=== PATIENT | female | born 1970 | race Caucasian/White ===

== ENCOUNTER 2020-07-27 18:17 | Emergency (ER) | payer MEDICAID, SELFPAY ==
[2020-07-27 18:19] VITALS: BP 162/99; PULSE 100; RESP 16; TEMP 36.6; O2SAT 98; BMI 29.2
[2020-07-27 19:00] LABS: Bacteria 0 SEEN /hpf (None Seen)
[2020-07-27 19:01] LABS: Absolute Lymphocyte Count 2.42 X10^3/uL (0.83-4.51); Absolute Neutrophil Count 8.8 X10^3/uL (2.0-7.7); Basophil% 0.8 % (0-1); Eosinophil# 0.46 X10^3/uL; Eosinophils% 3.7 % (0-5); Hemoglobin 9.2 g/dL (12.0-15.0); Lymphocyte # 2.42 X10^3/ul (4.0); Lymphocyte % 19.3 % (19-41); Mean Corp Hgb Conc 30.7 g/dL (32-36); Mean Corpuscular Hgb 23.7 pg (27.0-32.0); Mean Corpuscular Volume 77.1 fL (81-99); Mean Platelet Vol. 10.5 fl (6.2-12.0); Monocyte# 0.74 X10^3/uL; Monocyte% 5.9 % (0-10); NRBC Flagged by Analyzer 0 % (0-5); Neutrophil # 8.75 X10^3/uL (2.7-7.7); Neutrophil % 69.8 % (47-70); Platelet Count 464 K/mm3 (150-450); RBC Distribution Width CV 16.2 % (11.6-14.6); RBC Distribution Width SD 45.3 fl (35.1-43.9); Red Blood Count 3.89 M/mm3 (4.2-5.4); White Blood Count 12.5 K/mm3 (4.4-11.0)
[2020-07-27 19:01] LABS: Color, Urine Yellow (Yellow); Glucose, Dipstick 100 mg/dl (Normal); Ketone-Dipstick 5 mg/dl (Negative); Leukocyte Esterase-Dipstick 25 /ul (Negative); Nitrite-Dipstick Negative (Negative); Occult Blood-Urine 25 /ul (Negative); Protein-Dipstick 15 mg/dl (Negative); Specific Gravity, Urine 1.025 (1.002-1.030); Urine Bilirubin Dipstick Negative (Negative); Urine Clarity Clear (Clear); Urine Urobilinogen Normal (Normal)
[2020-07-27 19:01] LABS: Bedside Glucose 261 mg/dL (70-110)
[2020-07-27 19:07] LABS: Mucous, Urine 1+ /hpf (<or=2+); Red Blood Cells-Urine 0-5 SEEN /hpf (0-5); Squamous Epithelial Cells - UA 5-10 SEEN /hpf (5-10); White Blood Cells 0-5 SEEN /hpf (0-5)
[2020-07-27 19:13] LABS: Anion Gap 9 (5-15); BUN 12 mg/dL (7-18); BUN/Creat Ratio 13.3 RATIO (10-20); Calcium,Total 8.2 mg/dL (8.5-10.1); Chloride 108 mmol/L (98-107); EST Glomerular Filtration Rate 71 mL/min (>60); Est Glom Filt Rate - Afr Amer 86 mL/min (>60); Estimated Creatinine Clearance 63.24 ml/min; Glucose 276 mg/dL (74-106); Potassium 3.6 mmol/L (3.5-5.1); Sodium Level 139 mmol/L (136-145)
[2020-07-27] MEDS: 0.9% Normal Saline 1,000 ML 50 ML IV (21:01)
[2020-07-27 21:03] VITALS: BP 137/61; PULSE 67; RESP 18; O2SAT 98
--- NOTE | 2020-07-27 21:27 | ED.DCSUM_ITS ---
History of Present Illness Chief Complaint: Hyperglycemia Informant: Patient Onset: Today Context: Gradual Onset Timing: Continuous Narrative: Patient is a 49-year-old female with recent diagnosis of insulin-dependent di abetes mellitus presenting with fatigue and elevated blood sugars. Patient states her diet is very poor and her blood sugars have been running higher lately. She states initially they were 1 20-1 50 but now they have been running into the 200s. Today she checked her blood sugar and it was in the 300s. She took 6 units of insulin and after that started feel lightheaded and like she was walking in water. She is brought to the emergency room for further evaluation. Patient had protocol orders placed and was receiving IV fluids when I evaluate her. She states she is now feeling much better. She has had urinary frequency but denies any dysuria or hematuria. She denies any other systemic symptoms such as cough, chest pain, shortness of breath, nausea, vomiting or GI symptoms. Past Medical History - Allergies and Home Meds Allergies/Adverse Reactions: Allergies No Known Allergies Allergy (Verified 07/27/20 18:17) Past Medical History: - - Diabetes mellitus, insulin-dependent Surgical History: noncontributory Smoking Status: Former smoker Review of Systems General: Reports: Malaise, - - Lightheaded. Denies: Chills, Fever, Sweats Eyes: Denies: Visual changes - bilaterally, Diplopia ENT: Denies: Rhinorrhea, Sore throat Cardiovascular: Denies: Chest pain, Palpitations Respiratory: Denies: Dyspnea, Cough, Dyspnea on exertion Gastrointestinal: Denies: Abdominal pain, Nausea, Vomiting, Diarrhea, Melena, Hematochezia Genitourinary: Reports: Frequency. Denies: Dysuria, Hematuria Musculoskeletal: Denies: Back pain, Extremity Pain Skin: Denies: Rash, Wounds Neurological: Denies: Headache, Weakness, Numbness Physical Exam Vital Signs/Narrative: Vital Signs Temp Pulse Resp BP Pulse Ox 07/27/20 21:03 67 18 137/61 H 98 07/27/20 18:19 97.8 F 100 16 162/99 H 98 Inital Vital Signs reviewed: Yes General: Well nourished, Well developed, No Acute Distress Head: Normocephalic, Atraumatic Eyes: Perrl, EOMI ENT: Moist mucous membranes, No rhinorrhea Neck: Supple, Nontender Cardiovascular: Regular rate, Regular rhythm, No murmurs Respiratory: No distress, CTA bilaterally, Chest nontender Abdomen: Soft, Nontender, Nondistended, Normal bowel sounds Back: Nontender, Normal Inspection Extremities: Nontender, No edema Skin: Normal color, No rash Neurological: Alert, Oriented x3, Cranial nerves II-XII grossly intact, Normal Strength, Normal Sensation Psychological: Normal affect, Normal Mood Diagnostic/Tx/Re-eval Chest X-Ray - ED: 2 View, Read by ED Physician, Read by Radiologist, No Acute Disease Clinical Impression(s) from Imaging Studies Chest X-Ray 07/27/20 21:32 IMPRESSION: Normal. at 2202 Reported and signed by: Harvey Rene MD Electronically Signed: Harvey Rene MD at 22:01 EST Tel , Service support , Laboratory Data 07/27/20 07/27/20 07/27/20 18:45 18:45 18:50 WBC 12.5 H RBC 3.89 L Hgb 9.2 L Hct 30.0 L MCV 77.1 L MCH 23.7 L MCHC 30.7 L RDW Std Deviation 45.3 H RDW Coeff of Jv 16.2 H Plt Count 464 H MPV 10.5 Immature Gran % (Auto) 0.500 Neut % (Auto) 69.8 Lymph % (Auto) 19.3 [place] % (Auto) 5.9 Eos % (Auto) 3.7 Baso % (Auto) 0.8 Absolute Neuts (auto) 8.8 H Absolute Lymphs (auto) 2.42 Nucleated RBC % 0 Sodium 139 Potassium 3.6 Chloride 108 H Carbon Dioxide 22.0 Anion Gap 9 BUN 12 Creatinine 0.90 Estim Creat Clear Calc 63.24 Est GFR (MDRD) Af Amer 86 Est GFR (MDRD) Non-Af 71 BUN/Creatinine Ratio 13.3 Glucose 276 H Calcium 8.2 L Urine Color Yellow Urine Clarity Clear Urine pH 5.0 Ur Specific [place] 1.025 Urine Protein 15 H Urine Glucose (UA) 100 H Urine Ketones 5 H Urine Occult Blood 25 H Urine Nitrite Negative Urine Bilirubin Negative Urine Urobilinogen Normal Ur Leukocyte Esterase 25 H Urine RBC 0-5 SEEN Urine WBC 0-5 SEEN Ur Squamous Epith Cells 5-10 SEEN Urine Bacteria 0 SEEN Urine Mucus 1+ POC Glucose 07/27/20 18:53 WBC RBC Hgb Hct MCV MCH MCHC RDW Std Deviation RDW Coeff of Jv Plt Count MPV Immature Gran % (Auto) Neut % (Auto) Lymph % (Auto) [place] % (Auto) Eos % (Auto) Baso % (Auto) Absolute Neuts (auto) Absolute Lymphs (auto) Nucleated RBC % Sodium Potassium Chloride Carbon Dioxide Anion Gap BUN Creatinine Estim Creat Clear Calc Est GFR (MDRD) Af Amer Est GFR (MDRD) Non-Af BUN/Creatinine Ratio Glucose Calcium Urine Color Urine Clarity Urine pH Ur Specific [place] Urine Protein Urine Glucose (UA) Urine Ketones Urine Occult Blood Urine Nitrite Urine Bilirubin Urine Urobilinogen Ur Leukocyte Esterase Urine RBC Urine WBC Ur Squamous Epith Cells Urine Bacteria Urine Mucus POC Glucose 261 H - Medical Decision Making Patient evaluated for concern of elevated blood glucose and feeling unwell. Orders were placed for patient and when I evaluated her she was starting to receive fluids. She states she is actually feeling better now. Patient is mildly hyperglycemic she did give herself insulin prior to arrival and is receiving IV fluids. She is a normal anion gap and is well compensated. H&H is remarkable for mild anemia. Patient denies any bleeding. She denies any known history of anemia. Patient is instructed to start taking daily iron supplements and follow-up with her PCP for this. She will call insurance to find a PCP that is in network. Patient will follow up with her rehabilitation aide/scheduler for her glucose management. She is encouraged to adhere to a low low-carb/low sugar diet. Patient is counseled on signs and symptoms requiring return to the emergency room. Patient verbalizes agreement and understand this plan. Patient discharged home in stable and improved condition. ED Disposition - Plan for ED Patient: Disposition: Home or Assisted Living Diagnosis: Anemia, Hyperglycemia Instructions: ED Anemia, Type Not Specified (Adult), ED Diabetic Hyperglycemia Additional Instructions: Follow-up with your primary care doctor for further evaluation of your anemia. Drink plenty of fluids. You not have any IV source of infection.
--- NOTE | 2020-07-27 21:32 | RAD_ITS ---
HISTORY: HYPERGLYCEMIA. LIGHTHEADED. EXAM: XR Chest 2 Views: COMPARISON: None FINDINGS: # of images incl. paperwork: 2 Lungs are clear. Heart is not enlarged. No acute osseous pathology perceived. Pulmonary vascularity is distinct. No effusions. RAD/Chest PA and Lateral IMPRESSION: Normal. at 2202 Reported and signed by: Harvey Rene MD Electronically Signed: Harvey Rene MD at 22:01 EST Tel , Service support ,
[2020-07-27 22:19] VITALS: BP 132/74; PULSE 72; RESP 18; O2SAT 100
== END 2020-07-27 22:52 | disposition home or self-care (01) ==
PROVIDERS: Emergency Provider Emergency Medicine
DX: E11.65 Type 2 diabetes mellitus with hyperglycemia (principal); D64.9 Anemia, unspecified; Z79.4 Long term (current) use of insulin; Z79.899 Other long term (current) drug therapy; Z87.891 Personal history of nicotine dependence
CPT/HCPCS: 71046; 80048; 81001; 82962; 85025; 99283; J7030; A4216

== ENCOUNTER 2020-10-05 22:00 | Emergency (ER) | payer MEDICAID, SELFPAY ==
[2020-10-05 22:01] VITALS: BP 138/70; PULSE 84; RESP 18; TEMP 36.2; O2SAT 98; BMI 29.3
--- NOTE | 2020-10-05 22:03 | ED.RN ---
NO OLD EKGS IN MUSE
--- NOTE | 2020-10-05 22:25 | RAD_ITS ---
STUDY: X-RAY CHEST REASON FOR EXAM: Female, 50 years old. chest pain TECHNIQUE: Single AP portable view of the chest. COMPARISON: 07/27/2020 FINDINGS: The lungs are clear and expanded. There is no demonstrated pleural abnormality. Normal size heart. Normal mediastinum and mickey. Normal visualized pulmonary arteries. Normal visualized aortic arch and descending thoracic aorta. Normal visualized thoracic spine. Normal visualized ribs, clavicles, and shoulders. There is no demonstrated abnormality of the visualized soft tissue structures of the upper abdomen. RAD/Chest 1 View (Portable) IMPRESSION: Normal x-ray examination of the chest. Electronically Signed: Bryan Naranjo DO at 23:02 EDT Tel , Service support ,
--- NOTE | 2020-10-05 22:25 | EKG12_ITS ---
Test Reason : CP Blood Pressure : / mmHG Vent. Rate : 074 BPM Atrial Rate : 074 BPM P-R Int : 126 ms QRS Dur : 076 ms QT Int : 382 ms P-R-T Axes : 043 019 035 degrees QTc Int : 424 ms Normal sinus rhythm Normal ECG Confirmed by FLAVIO ABBOTT, JAYME ([id number]), dictionary editor TJ REYNOSO ([id number]) on 10/07/2020 2:41:02 PM Referred By: EDGARDO/ Confirmed By:JERSON MUNIZ MD
[2020-10-05 22:29] VITALS: O2SAT 96
[2020-10-05 22:48] LABS: Absolute Lymphocyte Count 1.17 X10^3/uL (0.83-4.51); Absolute Neutrophil Count 5.6 X10^3/uL (2.0-7.7); Basophil# 0.05 X10^3/uL; Basophil% 0.6 % (0-1); Eosinophil# 0.14 X10^3/uL; Eosinophils% 1.8 % (0-5); Hematocrit 37.2 % (37-47); Hemoglobin 11.9 g/dL (12.0-15.0); Lymphocyte # 1.17 X10^3/ul (4.0); Lymphocyte % 14.6 % (19-41); Mean Corpuscular Hgb 28.1 pg (27.0-32.0); Mean Corpuscular Volume 87.9 fL (81-99); Mean Platelet Vol. 11.4 fl (6.2-12.0); Monocyte# 1.01 X10^3/uL; Monocyte% 12.6 % (0-10); NRBC Flagged by Analyzer 0 % (0-5); Neutrophil # 5.59 X10^3/uL (2.7-7.7); Platelet Count 250 K/mm3 (150-450); RBC Distribution Width SD 62.6 fl (35.1-43.9); Red Blood Count 4.23 M/mm3 (4.2-5.4)
--- NOTE | 2020-10-05 23:00 | ED.VIS.GEN ---
History of Present Illness Chief Complaint: Chest Pain Informant: Patient Onset: Today - First episode occurred at 0730 and lasted for 2 hours. The second episode started approximately 1 hour prior to presentation. Context: Sudden Onset Timing: Intermittent Quality: Pressure sharp sensation. Occurs in bursts lasting 30 seconds. Location: Mid chest Current Severity: Mild Maximum Severity: Moderate Worsened by: Nothing Relieved by: Nothing Associated Symptoms: No associated symptoms. Does radiate through to the back Narrative: Patient is a 50-year-old female with history of type 1 diabetes, hypertension hypercholesterolemia. Family history is unknown since she is adopted. She was a smoker until 1 year ago. She states the first episode occurred while in bed. She states the pain stopped after her wastewater design engineer prayed over her. There is no associated symptoms with the first episode. The pain was intermittent lasting approximately 30 to 60 seconds per episode. There was no precipitating, alleviating or exacerbating factor. Patient had recurrence this evening and reason she presents. She denies fever, chills night sweats. She does report mild nasal congestion. She also reports myalgias and arthralgias. The symptoms started last evening. She denies discoloration of her skin or rash. She denies swelling of her legs. There is no history of VTE. She has no risk factors. Patient denies intolerance to greasy or fried foods. Patient denies prior episode to today. Prior similar symptoms: No Recent Illness/Hospitalization: No - Past Medical History (1) History of type 1 diabetes mellitus Status: Acute (2) History of hypertension Status: Acute (3) History of hypercholesterolemia Status: Acute Past Medical History - Allergies and Home Meds Allergies/Adverse Reactions: Allergies No Known Allergies Allergy (Verified 07/27/20 18:17) Primary Care Physician: Care Physician,No Primary [Primary Care Provider] - Prior records reviewed: Yes Surgical History: noncontributory Lives: With Family Smoking Status: Former smoker Alcohol: Rare Drugs: None Review of Systems General: Denies: Chills, Fever, Malaise, Subjective Eyes: Denies: Visual changes - bilaterally, Blurred Vision - bilaterally ENT: Denies: Rhinorrhea, Sore throat Cardiovascular: Reports: Chest pain. Denies: Palpitations, Heart racing Respiratory: Denies: Dyspnea, Cough, Dyspnea on exertion, Orthopnea, Paroxysmal nocturnal dyspnea Gastrointestinal: Denies: Abdominal pain, Nausea, Vomiting, Diarrhea, Melena, Hematochezia Genitourinary: Denies: Dysuria, Hematuria Musculoskeletal: Reports: Myalgias, Arthralgias, Back pain. Denies: Neck pain, Swelling, Extremity Pain Skin: Denies: Rash, Wounds Neurological: Denies: Headache, Weakness, Numbness Endocrine: Denies: Polyuria, Polydipsia Hematologic: Denies: Easy bruising, Easy bleeding Allergy: Denies: Uticaria Physical Exam Vital Signs/Narrative: Vital Signs Temp Pulse Resp BP Pulse Ox 10/05/20 22:29 96 10/05/20 22:01 97.2 F L 84 18 138/70 H 98 Inital Vital Signs reviewed: Yes General: Well nourished, Well developed, No Acute Distress Head: Normocephalic, Atraumatic Eyes: Perrl, EOMI. Negative for: Pale conjunctiva, Scleral icterus ENT: Moist mucous membranes, No rhinorrhea, TM's clear Neck: Supple, Nontender, No lymphadenopathy, No JVD Cardiovascular: Regular rate, Regular rhythm, No murmurs, Normal S1, Normal S2 Respiratory: No distress, CTA bilaterally, Chest nontender Abdomen: Soft, Nontender, Nondistended, Normal bowel sounds, No masses. Negative for: Massey's sign Rectal: Deferred Back: Nontender, Normal Inspection. Negative for: CVA tenderness Extremities: Nontender, No edema, - - There is no asymmetry, swelling, discoloration, leg vein distention, palpable cords or tenderness along the distribution of the deep venous system. Skin: Normal color, No rash Neurological: Alert, Oriented x3, Cranial nerves II-XII grossly intact, Normal Strength, Normal Sensation Psychological: Normal affect, Normal Mood Diagnostic/Tx/Re-eval Chest X-Ray - ED: 1 View, Read by ED Physician, Normal, Heart, Lungs, Mediastinum, Bony Structures, No Acute Disease, - - X-rays interpreted by me at 2300. X-ray is unchanged from July 27. Impressions Chest X-Ray 10/05/20 22:25 IMPRESSION: Normal x-ray examination of the chest. Electronically Signed: Bryan Naranjo DO at 23:02 EDT Tel , Service support , 10/05/20 22:25 Chest 1 View (Portable) [RAD] Stat Laboratory Results 10/05/20 10/05/20 Unknown Unknown WBC 8.0 RBC 4.23 Hgb 11.9 L Hct 37.2 MCV 87.9 MCH 28.1 MCHC 32.0 RDW Std Deviation 62.6 H RDW Coeff of Jv 20.0 H Plt Count 250 MPV 11.4 Immature Gran % (Auto) 0.400 Neut % (Auto) 70.0 Lymph % (Auto) 14.6 L [place] % (Auto) 12.6 H Eos % (Auto) 1.8 Baso % (Auto) 0.6 Absolute Neuts (auto) 5.6 Absolute Lymphs (auto) 1.17 Nucleated RBC % 0 Sodium 139 Potassium 4.2 Chloride 109 H Carbon Dioxide 27.0 Anion Gap 3 L BUN 18 Creatinine 0.76 Estim Creat Clear Calc 77.32 Est GFR (MDRD) Af Amer 104 Est GFR (MDRD) Non-Af 86 BUN/Creatinine Ratio 23.8 H Glucose 73 L Calcium 8.6 Troponin I < 0.015 - EKG Initial EKG Interpretation: Sinus Rhythm - Normal sinus rhythm with a ventricular rate of 74. HI interval is 126 ms. QS duration 76 ms. QT duration 382 ms. [place] is normal. EKG is normal. - Medical Decision Making Protocol was initiated. Differential diagnosis is chest pain due to GI etiology, cardiac etiology, pulmonary etiology. Blood work is remarkable for mild anemia. She does have history of anemia. Since EKG is unremarkable. Troponin is normal. And since presentation is very abnormal. Patient's heart score is 3. ED Disposition - Plan for ED Patient: Disposition: Home or Assisted Living Diagnosis: Midsternal chest pain Instructions: ED Chest Pain, Uncertain Cause Referrals: Care Physician,No Primary [Primary Care Provider] - Additional Instructions: Follow-up with your doctor as needed.
[2020-10-05 23:08] LABS: Anion Gap 3 (5-15); BUN 18 mg/dL (7-18); BUN/Creat Ratio 23.8 RATIO (10-20); Calcium,Total 8.6 mg/dL (8.5-10.1); Chloride 109 mmol/L (98-107); Creatinine, Serum 0.76 mg/dL (0.55-1.02); EST Glomerular Filtration Rate 86 mL/min (>60); Est Glom Filt Rate - Afr Amer 104 mL/min (>60); Estimated Creatinine Clearance 77.32 ml/min; Glucose 73 mg/dL (74-106); Potassium 4.2 mmol/L (3.5-5.1); Sodium Level 139 mmol/L (136-145)
[2020-10-05 23:17] VITALS: BP 146/66; PULSE 85; RESP 16; O2SAT 98
[2020-10-05 23:55] VITALS: BP 152/81; PULSE 83; RESP 18; O2SAT 99
== END 2020-10-05 23:56 | disposition home or self-care (01) ==
PROVIDERS: Emergency Provider Emergency Medicine
DX: R07.2 Precordial pain (principal); D64.9 Anemia, unspecified; E10.9 Type 1 diabetes mellitus without complications; I10 Essential (primary) hypertension; E78.00 Pure hypercholesterolemia, unspecified; M79.10 Myalgia, unspecified site; M25.50 Pain in unspecified joint; Z79.4 Long term (current) use of insulin; Z79.899 Other long term (current) drug therapy; Z87.891 Personal history of nicotine dependence
CPT/HCPCS: 71045; 80048; 84484; 85025; 93005; 99284

== ENCOUNTER 2020-10-14 09:50 | Inpatient (IN) | payer MEDICAID, SELFPAY ==
[2020-10-14] VITALS (11 sets, daily range): BP systolic 89–132; BP diastolic 61–80; PULSE 73–94; RESP 16–26; TEMP 36.6–37.1; O2SAT 88–95; BMI 28.3; BMI 29.5; BMI 29.6
--- NOTE | 2020-10-14 10:09 | ED.DCSUM_ITS ---
- ER Visit Summary Date of Service: 10/14/20 Chief Complaint: Fever History of Present Illness: The patient is a 50 F with no primary care physician. She reports she has a fever that began approximately 1 week ago. She has had a little bit of cough that is nonproductive. She does have mild shortness of breath. She complains of myalgias and generalized weakness. She has a headache that is frontal in location. Is a sharp, aching pain is 5 out of 10 at worst and 2 out of 10 currently. She has had nausea, but no vomiting. She reports she been having diarrhea once a day for the past week as well. No blood in her stools or black tarry stools. No dysuria or frequency. Patient denies sick contacts. Has not been camping out of the country. No possible bad food exposure. Does drink well water, but others do at home as well and they are not ill. No recent antibiotic use. She denies Covid exposure. She does wear a mask. She has not had a vaccine. She had a Covid test at urgent care 3 days ago that was negative. Physical Examination: Vitals: 98.5, 89/61, 87, 16, 89% on room air which is hypoxic. General: Well-nourished and well-developed. Head: Normocephalic atraumatic. Neck: Supple, no lymphadenopathy. No JVD. Nontender. Cardiovascular: Regular rate and rhythm. No murmurs. Respiratory: No respiratory distress. Clear to auscultation bilaterally. Abdominal: Soft, nontender, nondistended, normal bowel sounds. No guarding, rebound, or peritoneal signs. Back: Nontender. Extremities: Nontender, no edema. Skin: Normal color, no rash. Neurologic: Alert and oriented ?3. Cranial nerves II through XII are intact. Normal strength and sensation. Psych: Normal affect. Test Results: CBC shows segmented neutrophils of 79 lymphocytes of 16. Chem-7 shows potassium of 2.9, chloride of 108, CO2 of 20, glucose 119, creatinine 0.86, calcium of 8.4. Coags are normal. Lactic acid is 0.9. COVID-19 is negative. Clinical Impression(s) from Imaging Studies Chest X-Ray 10/14/20 11:20 IMPRESSION: Patchy bilateral pulmonary infiltrates worse in the left hemithorax. Electronically Signed: Bhavin Avila MD at 12:02 EDT , Service support , Emergency Department Course and Treatment: Patient had an IV placed. She was given 2 L of normal saline. She refused pain or nausea medications. Patient was given a dose of Zofran IV and potassium p.o. Pulse ox was 88% on room air at rest. Patient was given Rocephin and Zithromax IV. Treatment Plan: Patient will be discussed the hospitalist and admitted for further evaluation and treatment. Disposition: Admitted in improved condition. Impression: 1. Pneumonia. 2. Hypoxia. 3. Hypokalemia. This note was generated with [employer] dictation software. It may contain incorrect words, spelling, and punctuation that were not noted in review of the chart prior to signing ED Disposition - Plan for ED Patient: Referrals: Care Physician,No Primary [Primary Care Provider] -
[2020-10-14 10:35] LABS: Absolute Lymphocyte Count 0.89 X10^3/uL (0.83-4.51); Absolute Neutrophil Count 4.4 X10^3/uL (2.0-7.7); Basophil# 0.01 X10^3/uL; Basophil% 0.2 % (0-1); Hematocrit 38.4 % (37-47); Hemoglobin 12.6 g/dL (12.0-15.0); Lymphocyte # 0.89 X10^3/ul (0.83-4.51); Lymphocyte % 15.9 % (19-41); Mean Corp Hgb Conc 32.8 g/dL (32-36); Mean Corpuscular Volume 85.3 fL (81-99); Mean Platelet Vol. 10.1 fl (6.2-12.0); Monocyte# 0.26 X10^3/uL; Monocyte% 4.6 % (0-10); NRBC Flagged by Analyzer 0 % (0-5); Neutrophil # 4.43 X10^3/uL (2.7-7.7); Neutrophil % 79.1 % (47-70); Platelet Count 179 K/mm3 (150-450); RBC Distribution Width CV 19.3 % (11.6-14.6); RBC Distribution Width SD 59.6 fl (35.1-43.9); White Blood Count 5.6 K/mm3 (4.4-11.0)
[2020-10-14 10:45] LABS: International Normalized Ratio 1.1; Partial Thromboplast Time 31.7 Seconds (24.1-36.2); Prothrombin Time (Protime)PT. 13.1 SECONDS (11.7-14.9)
[2020-10-14 10:52] LABS: ALB/GLOB Ratio 0.8 RATIO (0.9-2.4); AST(SGOT) 15 U/L (15-37); Alanine Aminotransfer ALT/SGPT 19 U/L (13-56); Albumin, Serum 3.3 g/dL (3.2-5.0); Alkaline Phosphatase 53 U/L (45-117); Anion Gap 11 (5-15); BUN 10 mg/dL (7-18); BUN/Creat Ratio 11.6 RATIO (10-20); Calcium,Total 8.4 mg/dL (8.5-10.1); Chloride 108 mmol/L (98-107); Creatinine, Serum 0.86 mg/dL (0.55-1.02); EST Glomerular Filtration Rate 74 mL/min (>60); Est Glom Filt Rate - Afr Amer 90 mL/min (>60); Estimated Creatinine Clearance 65.46 ml/min; Globulin 4.2 g/dL (2.2-4.2); Glucose 119 mg/dL (74-106); Potassium 2.9 mmol/L (3.5-5.1); Protein, Total 7.5 g/dL (6.4-8.2); Sodium Level 139 mmol/L (136-145)
[2020-10-14] MEDS: 0.9% Normal Saline 1,000 ML 999 ML IV ×2 (10:55→10:56)
[2020-10-14 11:02] LABS: Lactic Acid 0.9 mmol/L (0.4-1.9)
--- NOTE | 2020-10-14 11:20 | RAD_ITS ---
STUDY: X-RAY CHEST REASON FOR EXAM: Female, 50 years old. Cough . Fever and headaches. TECHNIQUE: Single AP portable view of the chest. COMPARISON: Comparison is made with prior study dated 10/05/2020. FINDINGS: EKG electrodes are seen. Patchy bibasilar infiltrates worse in the left hemithorax. Follow-up is recommended. There is no demonstrated pleural abnormality. Normal size heart. Normal mediastinum and mickey. Normal visualized pulmonary arteries. Normal visualized aortic arch and descending thoracic aorta. Normal visualized thoracic spine. Normal visualized ribs, clavicles, and shoulders. There is no demonstrated abnormality of the visualized soft tissue structures of the upper abdomen. RAD/Chest 1 View (Portable) IMPRESSION: Patchy bilateral pulmonary infiltrates worse in the left hemithorax. Electronically Signed: Bhavin Avila MD at 12:02 EDT , Service support ,
[2020-10-14 11:49] LABS: Red Blood Cells-Urine 0 SEEN /hpf (0-5)
[2020-10-14 11:51] LABS: Color, Urine Yellow (Yellow); Glucose, Dipstick Normal (Normal); Ketone-Dipstick 50 mg/dl (Negative); Leukocyte Esterase-Dipstick Negative /ul (Negative); Nitrite-Dipstick Negative (Negative); Occult Blood-Urine 10 /ul (Negative); Protein-Dipstick 30 mg/dl (Negative); Urine Bilirubin Dipstick Negative (Negative); Urine Clarity Sl. Cloudy (Clear); Urine Urobilinogen Normal (Normal)
[2020-10-14 12:03] LABS: White Blood Cells 5-10 SEEN /hpf (0-5)
[2020-10-14 12:04] LABS: Bacteria 2+ /hpf (None Seen); Hyaline Cast 0-5 SEEN /lpf (0-5); Mucous, Urine 2+ /hpf (<or=2+); Squamous Epithelial Cells - UA 10-25 SEEN /hpf (5-10); White Cell Cast 0-5 SEEN /lpf (None Seen)
[2020-10-14] MEDS: dexAMETHasone 4 MG/ML Vial 6 MG IV (12:41)
[2020-10-14] MEDS: Ceftriaxone 1 GM/50 ML BAG IV (12:50)
[2020-10-14] MEDS: Potassium Chloride Oral Soln 20 MEQ/15 ML UDC 40 MEQ PO (13:06)
--- NOTE | 2020-10-14 13:16 | NURSING ---
ICU OR MS2 COVID PNEUMONIA VERÓNICA
--- NOTE | 2020-10-14 13:36 | NURSING ---
CV ICU 202
[2020-10-14] MEDS: Albuterol 2.5 MG/3 ML VIAL.NEB. INHALATION (14:56)
--- NOTE | 2020-10-14 16:30 | HP.PCM_ITS ---
Problem List (1) History of type 1 diabetes mellitus Status: Chronic (2) History of hypertension Status: Chronic (3) History of hypercholesterolemia Status: Chronic (4) Acute respiratory failure with hypoxia Status: Acute (5) History of tobacco abuse Status: Chronic (6) Hypokalemia Status: Acute (7) Metabolic acidosis Status: Acute History of Present Illness Date of Admission: 10/14/20 Ms. Del Toro is a 50-year-old white female with a past medical history of type 1 diabetes, hypertension, hyperlipidemia, GERD, and urinary incontinence who presented to the emergency department at [facility] on 10/14/2020 with a chief complaint of a fever. She reports that approximately 1 week ago she began to feel poorly and had a bit of a cough at that time that was nonproductive her cough has progressed with time and she is also developed myalgias, generalized weakness, frontal headache, nausea without vomiting, and loose stools. She denies any sick contacts but is exposed to multiple people. She does wear a mask but has not had the Covid vaccine. She had a Covid test at an urgent care 3 days ago that was negative. She states that her appetite's been poor but she has a good sense of smell and taste. In the emergency department she was afebrile, heart rate was 87, blood pressure was 115/70, her respiratory rate was between 18 and 24 and her oxygen saturations were 88 to 89% on room air. She does have a history of tobacco abuse but has quit over a year ago and is not O2 dependent at baseline. Her oxygen saturations improved to 95% on 2 L nasal cannula. Her CBC was overall unremarkable. Her coagulation studi es were within normal limits. Her CMP showed hypokalemia with a potassium of 2.9, hyperchloremia with a chloride of 108 and a metabolic acidosis with a bicarb of 20. She had a normal lactic acid at 0.9. Her LFTs were within normal limits. Her glucose in the emergency department was 119. A UA was performed and was overall unremarkable other than for small ketones which with a normal anion gap I suspect is related to starvation and some protein. The specific gravity on her UA was 1.020 indicating some dehydration. A Covid PCR was performed and was negative in the emergency department her chest x-ray shows bilateral multifocal infiltrates. She was treated with Decadron in the emergency department secondary to high suspicion of Covid and she was given 40 mEq of p.o. potassium. She will be admitted to the Covid floor secondary to high suspicion of Covid pneumonia. Past Medical History Past Medical History (Chronic Problems): Chronic Problems History of type 1 diabetes mellitus (Chronic) History of hypertension (Chronic) History of hypercholesterolemia (Chronic) History of tobacco abuse (Chronic) Allergies No Known Allergies Allergy (Verified 10/14/20 09:53) Home Medications: Ambulatory Orders Medication Instructions Recorded Insulin Glargine [Lantus (BKC)] 20 units SC QHS 07/27/20 Insulin Lispro [Insulin Lispro 3 unit SQ TID 07/27/20 Kwikpen U-100] Lisinopril [Zestril] 40 mg PO DAILY 07/27/20 Oxybutynin [Ditropan] 5 mg PO BID 07/27/20 Pantoprazole Sodium [Protonix] 40 mg PO DAILY 07/27/20 Atorvastatin Calcium [Lipitor] 20 mg PO DAILY 10/05/20 Ferrous Sulfate 325 mg PO BID 10/14/20 Surgical History: noncontributory Psychiatric History: No pertinent psych hx Lives: Friends, - Smoking Status: Former smoker Tobacco Use: Cigarettes Alcohol: Rare Drugs: None - *Family History Maternal History Items: No pertinent history Paternal History Items: No pertinent history Review of Systems Constitutional: Reports: Anorexia, Chills, Fever, Malaise, Weakness, Fatigue. Denies: Night Sweats, Weight Change Eyes: Denies: Blurred vision, Cataracts, Conjunctivae Inflammation, Double vision, Drainage, Eyelid Inflammation, Pain, Redness, Vision Change HEENT: Reports: Head Aches. Denies: Difficulty Hearing, Difficulty Swallowing, Ear Pain, Eye Pain, Hearing Changes, Nasal bleeding, Nasal Congestion, Post Nasal Drip, Sinus Congestion, Sinus Drainage, Sore Throat, Visual Changes Cardiovascular: Denies: Chest Pain, Claudication, Chest Pressure, Chest Tightness, Edema, Heaviness, Light Headedness, Orthopnea, Palpitations, Paroxysmal Noc. Dyspnea, Syncope Respiratory: Reports: Cough, Shortness of Breath, Shortness of breath at rest, Shortness of breath upon exertion. Denies: Hemoptysis, Pleuritic Pain, Sputum production, Wheezing Gastrointestinal: Reports: Diarrhea, Nausea. Denies: Abdominal Pain, Constipation, Dyspepsia, Hematemesis, Hematochezia, Melena, Vomiting Genitourinary: Denies: Dysuria, Frequency, Hematuria, Hesitancy, Incontinence, Nocturia, Retention, Urgency Musculoskeletal: Reports: Muscle pain, - - Myalgias. Denies: Back Pain, Joint Pain, Joint stiffness, Joint swelling, Neck Pain Skin: Denies: Dryness, Jaundice, Lesions, Pruritis, Rash, Skin Changes, Wounds Neurological: Reports: Headaches. Denies: Balance problems, Blurred vision, Double vision, Change in Speech, Slurred speech, Confusion, Difficulty swallowing, Focal weakness, Incoordination, Numbness, Tingling, Tremor, Seizures Psychiatric: Denies: Anxiety, Depression Endocrine: Denies: Change in Body Habitus, Heat/ Cold Intolerance, Polydipsia, Polyuria Hematologic/ Lymphatic: Denies: Adenopathy, Anemia, Easy Bruising, Easy Bleedin g, Petechiae, Purpura VTE Information - Inpt Only VTE Present on Admission: No VTE Mechan Device Prophylaxis: SCD's VTE Pharm Prophylaxis ordered?: Yes - Physical Exam Vitals/I&O's: Vital Signs Temp Pulse Resp BP Pulse Ox 97.8 F 94 24 H 129/68 H 93 10/14/20 14:44 10/14/20 14:44 10/14/20 14:44 10/14/20 14:44 10/14/20 14:56 Oxygen Flow Rate (L/min) 2.5 Oxygen Delivery Method Nasal Cannula Weight: 75.7 kg Body Mass Index (BMI) 29.5 Finger Stick Blood Glucose 261 Intake and Output for Last 24 Hours 10/12/20 10/13/20 10/14/20 23:59 23:59 23:59 Intake Total 1066.65 / 1066.65 Balance 1066.65 / 1066.65 General: Alert, Oriented x3, Cooperative, Well developed, Well nourished, - - Patient is a middle-aged white female who is lying in bed covered in multiple blankets, appears that she feels poorly but nontoxic HEENT: Atraumatic, PERRLA, EOMI, Normocephalic, EAC Clear Oral: Moist Mucosa, No Gingival or Mucosal Lesions/ Ulcerations, - - Mallampati 2, good dentition, no thrush Neck: Supple, Trachea Midline, Thyroid Normal Size and Texture Lungs: No rhonchi, No wheeze, Diminished, Rales - Bilaterally and diffusely but greater at bases Cardiovascular: Regular rate, Regular Rhythm, Normal S1, Normal S2, No murmurs, No Ectopic Activity, No rub noted, No Gallop Abdomen: Bowel Sounds Present, Soft, Non Tender, Non-Distended, No hernias noted Extremities: No clubbing, No cyanosis, No edema, Capillary Refill Less than 3 Seconds, Peripheral Pulses Normal Skin: No rashes, No breakdown Musculoskeletal: No Tenderness to Palpation of Joints or Extremities, No Muscle Wasting Lymphatic: No Cervical, Supraclavicular, or Inguinal Adenopathy Neurological: Cranial nerves II-XII grossly intact, Neuro grossly intact, Muscle tone normal, Sensory exam intact to light touch and pain, Coordination normal Psych/Mental Status: Normal Affect, Appropriate Microbiology Past 72 Hours 10/14/20 11:09 Urine, Clean Catch Legionella Antigen - Final 10/14/20 11:09 Urine, Clean Catch Streptococcus pneumoniae Antigen (M - Final Laboratory Results 10/14/20 10:13: COVID-19 (MICHELE) Not Detected 10/14/20 10:25: WBC 5.6, RBC 4.50, Hgb 12.6, Hct 38.4, MCV 85.3, MCH 28.0, MCHC 32.8, RDW Std Deviation 59.6 H, RDW Coeff of Jv 19.3 H, Plt Count 179, MPV 10.1, Immature Gran % (Auto) 0.200, Neut % (Auto) 79.1 H, Lymph % (Auto) 15.9 L, [place] % (Auto) 4.6, Eos % (Auto) 0.0, Baso % (Auto) 0.2, Absolute Neuts (auto) 4.4, Absolute Lymphs (auto) 0.89, Nucleated RBC % 0 10/14/20 10:25: PT 13.1, INR 1.1, APTT 31.7 10/14/20 10:25: Sodium 139, Potassium 2.9 L, Chloride 108 H, Carbon Dioxide 20.0 L, Anion Gap 11, BUN 10, Creatinine 0.86, Estim Creat Clear Calc 65.46, Est GFR (MDRD) Af Amer 90, Est GFR (MDRD) Non-Af 74, BUN/Creatinine Ratio 11.6, Glucose 119 H, Calcium 8.4 L, Total Bilirubin 0.40, AST 15, ALT 19, Alkaline Phosphatase 53, Total Protein 7.5, Albumin 3.3, Globulin 4.2, Albumin/Globulin Ratio 0.8 L 10/14/20 10:25: Lactic Acid 0.9 10/14/20 10:25: D-Dimer Quant (PE/DVT) Pending 10/14/20 11:45: Urine Color Yellow, Urine Clarity Sl. Cloudy, Urine pH 6.0, Ur Specific [place] 1.020, Urine Protein 30 H, Urine Glucose (UA) Normal, Urine Ketones 50 H, Urine Occult Blood 10 H, Urine Nitrite Negative, Urine Bilirubin Negative, Urine Urobilinogen Normal, Ur Leukocyte Esterase Negative, Urine RBC 0 SEEN, Urine WBC 5-10 SEEN, Ur Squamous Epith Cells 10-25 SEEN, Urine Bacteria 2+, Hyaline Casts 0-5 SEEN, WBC Casts 0-5 SEEN, Urine Mucus 2+ 10/14/20 14:45: MRSA (PCR) Pending Current Medications Acetaminophen (Acetaminophen 325 Mg Tablet) 650 mg PO Q6H PRN PRN PRN Reason: Pain Score 1-10/Temp > 100.7 F Albuterol Sulfate (Albuterol 2.5 Mg/3 Ml Vial.Neb.) 2.5 mg INHALATION Q4H PRN PRN Reason: SOB &/OR WHEEZING Atorvastatin Calcium (Atorvastatin Calcium 20 Mg Tablet) 20 mg PO DAILY@2200 [facility] Dexamethasone (Dexamethasone 4 Mg Tablet) 6 mg PO DAILY [facility] Enoxaparin Sodium (Enoxaparin 40 Mg/0.4 Ml Syringe) 40 mg SC DAILY [facility] Ferrous Sulfate (Ferrous Sulfate 325 Mg Tablet) 325 mg PO BID@1200,1700 [facility] Azithromycin 500 mg/ Dextrose 255 mls @ 250 mls/hr IV Q24 [facility] Stop: 10/20/20 10:01 Ceftriaxone Sodium 2 gm/ (Sodium Chloride) 50 mls @ 100 mls/hr IV Q24 [facility] Stop: 10/22/20 10:01 Sodium Chloride () 250 mls @ 15 mls/hr IV .[id number] PRN PRN Reason: Saline Flush Insulin Glargine (Insulin Glargine 100 Units/Ml Pen) 30 units SC QHS [facility] Insulin Human Lispro (Insulin Lispro 100 Unit/Ml Insuln.Pen) 6 unit SC TIDCM [facility] Lisinopril (Lisinopril 40 Mg Tablet) 40 mg PO DAILY [facility] Melatonin (Melatonin 3 Mg Tablet) 3 mg PO QHS PRN PRN PRN Reason: INSOMNIA Ondansetron HCl (Ondansetron 4 Mg/2 Ml Vial) 4 mg IV Q8H PRN PRN PRN Reason: NAUSEA/VOMITING Oxybutynin Chloride (Oxybutynin 5 Mg Tablet) 5 mg PO BID JOHN Pantoprazole Sodium (Pantoprazole Sodium 40 Mg Tablet) 40 mg PO DAILY JOHN Senna/Docusate Sodium (Senna/Docusate Sodium 1 Tablet) 2 tablet PO BID PRN PRN PRN Reason: Constipation Sodium Chloride (0.9% Saline Lock 10 Ml Syringe) 10 - 40 ml IV UD PRN PRN Reason: SALINE FLUSH Throat Lozenges (Benzocaine/Menthol 1 Lozenge) 1 lozenge MUCOUS MEM Q2H PRN PRN PRN Reason: SORE THROAT Assessment/Plan All Active Problems Acute respiratory failure with hypoxia (Acute) Hypokalemia (Acute) Metabolic acidosis (Acute) Acute hypoxic respiratory failure secondary to unknown etiology-suspect Covid pneumonia -Patient has had an outpatient negative Covid rapid and was negative with a PCR here today but my suspicion remains high based on her symptoms and presentation -X-ray shows bilateral patchy infiltrates -Check respiratory panel -Check Legionella and strep pneumo urine antigens -Blood and urine cultures are pending -We will dose ceftriaxone and azithromycin for the time being -May be able to de-escalate -Check a.m. procalcitonin -D-dimer is pending--> if elevated check CTA of the chest -Continue supplemental oxygen--> patient is currently on 3 L nasal cannula with an SPO2 of 93% -Titrate as needed/able -Decadron 6 mg a day--> day 1 of 10 -Consider remdesivir -Consult infectious disease for input for remdesivir dosing since patient does not have a definitive positive Covid test Hypokalemia -Patient was given 40 mEq of p.o. potassium in the emergency department -Repeat potassium in a.m. -A.m. magnesium level Nonanion gap metabolic acidosis secondary to hyperchloremia -Repeat a.m. lab DM-1 -At baseline patient is on Lantus 20 units at at bedtime and lispro 3 units 3 times daily -We will increase to Lantus 25 units at at bedtime and continue units 3 times daily of lispro with Decadron dosing -Hold SSI at this time until we have more data -Admitting blood sugar was 119 Hypertension Continue lisinopril 40 mg daily Hyperlipidemia Continue atorvastatin 20 mg daily GERD -Continue Protonix 40 mg daily Urinary incontinence -Continue oxybutynin 5 mg p.o. twice daily DVT prophylaxis -Lovenox 40 mg daily CODE STATUS -Full code Inpatient E&M: 18830 Init Hosp L3
[2020-10-14 16:41] LABS: M R Staph aureus DNA By PCR Negative (Negative); Probe Check PASS; Specimen Processing Control PASS
[2020-10-14] MEDS: 0.9% Saline Lock 10 ML Syringe IV (16:53)
[2020-10-14] MEDS: Ferrous Sulfate 325 MG Tablet PO (16:54)
[2020-10-14] MEDS: Insulin Lispro 100 UNIT/ML INSULN.PEN SC ×2 (16:56→20:42)
[2020-10-14 17:05] LABS: D-Dimer Quantitative (DVT/PE) 0.65 FEU/ug/m (0.27-0.49)
[2020-10-14] MEDS: 0.9% Normal Saline 1,000 ML 75 ML IV (17:05)
--- NOTE | 2020-10-14 17:19 | CT_ITS ---
STUDY: CTA CHEST REASON FOR EXAM: Female, 50 years old. R/O PE RADIATION DOSAGE (If Supplied By Facility): CTDIvol = ( 9.825 ) mGy, DLP = ( 448.54 ) mGycm TECHNIQUE: The examination was performed with the intravenous administration of IV 100mL Isovue-370. Post-processing of the angiographic images was performed, with multiplanar reformation and 3D reconstruction. Individualized dose optimization techniques were used for this CT. COMPARISON: None. FINDINGS: Normal enhancement of the main pulmonary artery and right and left pulmonary arteries. Normal enhancement of the bilateral peripheral pulmonary arteries. There is no demonstrated pulmonary embolism. Normal thoracic aorta and visualized great vessels. There is no demonstrated aortic dissection. Normal heart and pericardium. Normal mediastinum. Normal hilar regions. Normal visualized trachea and bronchi. The lungs are well expanded. Multifocal predominantly peripheral interstitial infiltrates with groundglass opacity in both upper and lower lobes suspicious for Covid 19 pneumonia. Normal pleura. Normal chest wall structures. Dorsal spine demonstrates degenerative change. Contracted thick-walled gallbladder without calcified stones likely physiologic. If concern for gallbladder disease ultrasound recommended. CT/CTA Chest W/WO Contrast IMPRESSION: Bilateral peripheral infiltrates in both upper and lower lobes highly suspicious for Covid 19 pneumonia. No evidence for pulmonary embolus. DOPPLER scan of the deep venous system of lower extremities recommended for further evaluation if clinically warranted. Electronically Signed: Steven Serrano MD at 18:54 EDT , Service support ,
[2020-10-14 20:11] LABS: Bedside Glucose 247 mg/dL (70-110)
[2020-10-14] MEDS: Atorvastatin Calcium 20 MG Tablet PO (20:40)
[2020-10-14] MEDS: Oxybutynin 5 MG Tablet PO (20:40)
[2020-10-14] MEDS: Pantoprazole Sodium 40 MG Tablet PO (20:43)
[2020-10-14 21:36] LABS: Bedside Glucose 261 mg/dL (70-110)
[2020-10-14 22:10] LABS: Alkaline Phosphatase 43 U/L (45-117)
[2020-10-15] VITALS (9 sets, daily range): BP systolic 108–133; BP diastolic 62–76; PULSE 65–85; RESP 18–20; TEMP 36.6–37.3; O2SAT 92–95
[2020-10-15] MEDS: Acetaminophen 325 MG Tablet 650 MG PO ×3 (04:08→21:45)
[2020-10-15] MEDS: 0.9% Saline Lock 10 ML Syringe IV (04:09)
[2020-10-15 04:21] LABS: Absolute Lymphocyte Count 0.73 X10^3/uL (0.83-4.51); Absolute Neutrophil Count 6.3 X10^3/uL (2.0-7.7); Basophil# 0.01 X10^3/uL; Basophil% 0.1 % (0-1); Hematocrit 34.9 % (37-47); Hemoglobin 11.3 g/dL (12.0-15.0); Lymphocyte # 0.73 X10^3/ul (0.83-4.51); Lymphocyte % 9.7 % (19-41); Mean Corp Hgb Conc 32.4 g/dL (32-36); Mean Corpuscular Hgb 27.8 pg (27.0-32.0); Mean Corpuscular Volume 85.7 fL (81-99); Mean Platelet Vol. 10.3 fl (6.2-12.0); Monocyte# 0.48 X10^3/uL; Monocyte% 6.4 % (0-10); NRBC Flagged by Analyzer 0 % (0-5); Neutrophil # 6.25 X10^3/uL (2.7-7.7); Neutrophil % 83.4 % (47-70); Platelet Count 203 K/mm3 (150-450); RBC Distribution Width CV 19.4 % (11.6-14.6); Red Blood Count 4.07 M/mm3 (4.2-5.4); White Blood Count 7.5 K/mm3 (4.4-11.0)
[2020-10-15 04:55] LABS: ALB/GLOB Ratio 0.7 RATIO (0.9-2.4); AST(SGOT) 13 U/L (15-37); Alanine Aminotransfer ALT/SGPT 19 U/L (13-56); Albumin, Serum 2.5 g/dL (3.2-5.0); Alkaline Phosphatase 46 U/L (45-117); Anion Gap 8 (5-15); BUN 8 mg/dL (7-18); BUN/Creat Ratio 12.9 RATIO (10-20); Chloride 113 mmol/L (98-107); Creatinine, Serum 0.62 mg/dL (0.55-1.02); EST Glomerular Filtration Rate 109 mL/min (>60); Est Glom Filt Rate - Afr Amer 132 mL/min (>60); Globulin 3.6 g/dL (2.2-4.2); Glucose 198 mg/dL (74-106); Magnesium 1.9 mg/dL (1.6-2.6); Phosphorus 2.2 mg/dL (2.5-4.9); Potassium 3.4 mmol/L (3.5-5.1); Protein, Total 6.1 g/dL (6.4-8.2); Sodium Level 141 mmol/L (136-145); Thyroid Stim Hormone (TSH) 0.27 uIU/mL (0.358-3.74)
[2020-10-15] MEDS: Insulin Lispro 100 UNIT/ML INSULN.PEN SC ×6 (08:23→21:46)
[2020-10-15] MEDS: dexAMETHasone 4 MG Tablet 6 MG PO (08:27)
[2020-10-15] MEDS: Oxybutynin 5 MG Tablet PO ×2 (08:27→21:45)
[2020-10-15] MEDS: Enoxaparin 40 MG/0.4 ML Syringe SC (08:27)
[2020-10-15] MEDS: Na Biphos/Potassium Phosphate PACKET 1 PACKET PO ×2 (08:28→21:45)
[2020-10-15] MEDS: Pantoprazole Sodium 40 MG Tablet PO (08:28)
[2020-10-15] MEDS: Lisinopril 40 MG Tablet PO (08:28)
[2020-10-15] MEDS: Ferrous Sulfate 325 MG Tablet PO ×2 (08:28→18:51)
[2020-10-15 09:11] LABS: Bedside Glucose 139 mg/dL (70-110)
--- NOTE | 2020-10-15 10:06 | PCM.PN.HOSP ---
Patient Problems: Active and Suspected Problems Acute respiratory failure with hypoxia (Acute) Hypokalemia (Acute) Metabolic acidosis (Acute) Subjective: Patient states she is feeling pretty miserable. Has had increased shortness of breath overnight. Remains afebrile but has had increase oxygen requirements and now is at 5 L nasal cannula with oxygen saturation of 92 to 93%. Vitals/I&O's: Vital Signs Temp Pulse Resp BP Pulse Ox 97.8 F 76 18 123/62 H 92 10/15/20 08:43 10/15/20 08:43 10/15/20 08:43 10/15/20 08:43 10/15/20 08:43 Oxygen Flow Rate (L/min) 5 Oxygen Delivery Method Nasal Cannula Weight: 75.7 kg Body Mass Index (BMI) 29.5 Finger Stick Blood Glucose 261 Intake and Output for Last 24 Hours 10/13/20 10/14/20 10/15/20 23:59 23:59 23:59 Intake Total 1835.40 / 1835.40 736.25 / 736.25 Balance 1835.40 / 1835.40 736.25 / 736.25 General: Alert, Oriented x3, Cooperative, Well developed, Well nourished, - - Middle-aged white female lying in bed, appears as if she does not feel well but nontoxic HEENT: Atraumatic, PERRLA, EOMI, Normocephalic, EAC Clear Oral: Moist Mucosa, No Gingival or Mucosal Lesions/ Ulcerations, - - No thrush Neck: Supple, Trachea Midline, Thyroid Normal Size and Texture Lungs: No rhonchi, No wheeze, Diminished, Rales - Few bibasilar crackles with deep inspiration Cardiovascular: Regular rate, Regular Rhythm, Normal S1, Normal S2, No murmurs, No Ectopic Activity, No rub noted Abdomen: Bowel Sounds Present, Soft, Non Tender, Non-Distended, No Hepato-splenomegaly Extremities: No clubbing, No cyanosis, No edema, Capillary Refill Less than 3 Seconds, Peripheral Pulses Normal Skin: No rashes, No breakdown Musculoskeletal: No Tenderness to Palpation of Joints or Extremities, No Muscle Wasting Lymphatic: No Cervical, Supraclavicular, or Inguinal Adenopathy Neurological: Cranial nerves II-XII grossly intact, Neuro grossly intact, Muscle tone normal, Coordination normal Psych/Mental Status: Normal Affect, Appropriate, - - Appears of if she does not feel well Microbiology Past 72 Hours 10/14/20 10:13 Mucosa - Nasopharyngeal Respiratory Panel (PCR) - Final 10/14/20 11:09 Urine, Clean Catch Legionella Antigen - Final 10/14/20 11:09 Urine, Clean Catch Streptococcus pneumoniae Antigen (M - Final Laboratory Results 10/14/20 10:13: COVID-19 (MICHELE) Not Detected 10/14/20 10:25: WBC 5.6, RBC 4.50, Hgb 12.6, Hct 38.4, MCV 85.3, MCH 28.0, MCHC 32.8, RDW Std Deviation 59.6 H, RDW Coeff of Jv 19.3 H, Plt Count 179, MPV 10.1, Immature Gran % (Auto) 0.200, Neut % (Auto) 79.1 H, Lymph % (Auto) 15.9 L, Wirt % (Auto) 4.6, Eos % (Auto) 0.0, Baso % (Auto) 0.2, Absolute Neuts (auto) 4.4, Absolute Lymphs (auto) 0.89, Nucleated RBC % 0 10/14/20 10:25: PT 13.1, INR 1.1, APTT 31.7 10/14/20 10:25: Sodium 139, Potassium 2.9 L, Chloride 108 H, Carbon Dioxide 20.0 L, Anion Gap 11, BUN 10, Creatinine 0.86, Estim Creat Clear Calc 65.46, Est GFR (MDRD) Af Amer 90, Est GFR (MDRD) Non-Af 74, BUN/Creatinine Ratio 11.6, Glucose 119 H, Calcium 8.4 L, Total Bilirubin 0.40, AST 15, ALT 19, Alkaline Phosphatase 53, Total Protein 7.5, Albumin 3.3, Globulin 4.2, Albumin/Globulin Ratio 0.8 L 10/14/20 10:25: Lactic Acid 0.9 10/14/20 10:25: D-Dimer Quant (PE/DVT) 0.65 H* 10/14/20 11:45: Urine Color Yellow, Urine Clarity Sl. Cloudy, Urine pH 6.0, Ur Specific [place] 1.020, Urine Protein 30 H, Urine Glucose (UA) Normal, Urine Ketones 50 H, Urine Occult Blood 10 H, Urine Nitrite Negative, Urine Bilirubin Negative, Urine Urobilinogen Normal, Ur Leukocyte Esterase Negative, Urine RBC 0 SEEN, Urine WBC 5-10 SEEN, Ur Squamous Epith Cells 10-25 SEEN, Urine Bacteria 2+, Hyaline Casts 0-5 SEEN, WBC Casts 0-5 SEEN, Urine Mucus 2+ 10/14/20 14:45: MRSA (PCR) Negative 10/14/20 16:51: POC Glucose 247 H 10/14/20 20:34: POC Glucose 261 H 10/14/20 21:45: Alkaline Phosphatase 43 L 10/15/20 04:10: WBC 7.5, RBC 4.07 L, Hgb 11.3 L, Hct 34.9 L, MCV 85.7, MCH 27.8, MCHC 32.4, RDW Std Deviation 60.0 H, RDW Coeff of Jv 19.4 H, Plt Count 203, MPV 10.3, Immature Gran % (Auto) 0.400, Neut % (Auto) 83.4 H, Lymph % (Auto) 9.7 L, Wirt % (Auto) 6.4, Eos % (Auto) 0.0, Baso % (Auto) 0.1, Absolute Neuts (auto) 6.3, Absolute Lymphs (auto) 0.73 L, Nucleated RBC % 0 10/15/20 04:10: Sodium 141, Potassium 3.4 L, Chloride 113 H, Carbon Dioxide 20.0 L, Anion Gap 8, BUN 8, Creatinine 0.62, Estim Creat Clear Calc 90.80, Est GFR (MDRD) Af Amer 132, Est GFR (MDRD) Non-Af 109, BUN/Creatinine Ratio 12.9, Glucose 198 H, Calcium 8.0 L, Phosphorus 2.2 L, Magnesium 1.9, Total Bilirubin 0.20, AST 13 L, ALT 19, Alkaline Phosphatase 46, Total Protein 6.1 L, Albumin 2.5 L, Globulin 3.6, Albumin/Globulin Ratio 0.7 L, TSH 0.27 L 10/15/20 08:12: POC Glucose 139 H Current Medications Acetaminophen (Acetaminophen 325 Mg Tablet) 650 mg PO Q6H PRN PRN PRN Reason: Pain Score 1-10/Temp > 100.7 F Last Admin: 10/15/20 04:08 Dose: 650 mg Documented by: Albuterol Sulfate (Albuterol 2.5 Mg/3 Ml Vial.Neb.) 2.5 mg INHALATION Q4H PRN PRN Reason: SOB &/OR WHEEZING Atorvastatin Calcium (Atorvastatin Calcium 20 Mg Tablet) 20 mg PO DAILY@2200 [facility] Last Admin: 10/14/20 20:40 Dose: 20 mg Documented by: Dexamethasone (Dexamethasone 4 Mg Tablet) 6 mg PO DAILY [facility] Last Admin: 10/15/20 08:27 Dose: 6 mg Documented by: Enoxaparin Sodium (Enoxaparin 40 Mg/0.4 Ml Syringe) 40 mg SC DAILY [facility] Last Admin: 10/15/20 08:27 Dose: 40 mg Documented by: Ferrous Sulfate (Ferrous Sulfate 325 Mg Tablet) 325 mg PO BID@1200,1700 [facility] Last Admin: 10/15/20 08:28 Dose: 325 mg Documented by: Azithromycin 500 mg/ Dextrose 255 mls @ 250 mls/hr IV Q24 [facility] Stop: 10/20/20 10:01 Ceftriaxone Sodium 2 gm/ (Sodium Chloride) 50 mls @ 100 mls/hr IV Q24 [facility] Stop: 10/22/20 10:01 Last Admin: 10/15/20 08:26 Dose: 100 mls/hr Documented by: Sodium Chloride () 250 mls @ 15 mls/hr IV .[id number] PRN PRN Reason: Saline Flush Sodium Chloride () 1,000 mls @ 75 mls/hr IV .[id number] [facility] Last Admin: 10/15/20 08:26 Dose: Not Given Documented by: Remdesivir 100 mg/ Sodium (Chloride) 250 mls @ 125 mls/hr IV DAILY [facility]; Protocol Stop: 10/18/20 11:59 Insulin Glargine (Insulin Glargine 100 Units/Ml Pen) 30 units SC QHS [facility] Insulin Human Lispro (Insulin Lispro 100 Unit/Ml Insuln.Pen) 0 unit SC ACHS [facility]; Protocol Last Admin: 10/15/20 08:20 Dose: Not Given Documented by: Insulin Human Lispro (Insulin Lispro 100 Unit/Ml Insuln.Pen) 5 unit SC TIDCM [facility] Last Admin: 10/15/20 08:23 Dose: 5 u Documented by: Lisinopril (Lisinopril 40 Mg Tablet) 40 mg PO DAILY [facility] Last Admin: 10/15/20 08:28 Dose: 40 mg Documented by: Melatonin (Melatonin 3 Mg Tablet) 3 mg PO QHS PRN PRN PRN Reason: INSOMNIA Ondansetron HCl (Ondansetron 4 Mg/2 Ml Vial) 4 mg IV Q8H PRN PRN PRN Reason: NAUSEA/VOMITING Oxybutynin Chloride (Oxybutynin 5 Mg Tablet) 5 mg PO BID [facility] Last Admin: 10/15/20 08:27 Dose: 5 mg Documented by: Pantoprazole Sodium (Pantoprazole Sodium 40 Mg Tablet) 40 mg PO DAILY [facility] Last Admin: 10/15/20 08:28 Dose: 40 mg Documented by: Potassium Phos/Sodium Phos (Na Biphos/Potassium Phosphate Packet) 1 packet PO BID [facility] Stop: 10/16/20 10:01 Last Admin: 10/15/20 08:28 Dose: 1 packet Documented by: Senna/Docusate Sodium (Senna/Docusate Sodium 1 Tablet) 2 tablet PO BID PRN PRN PRN Reason: Constipation Sodium Chloride (0.9% Saline Lock 10 Ml Syringe) 10 - 40 ml IV UD PRN PRN Reason: SALINE FLUSH Last Admin: 10/15/20 04:09 Dose: 10 ml Documented by: Throat Lozenges (Benzocaine/Menthol 1 Lozenge) 1 lozenge MUCOUS MEM Q2H PRN PRN PRN Reason: SORE THROAT STROKE Vital Signs/Narrative: Vital Signs Temp Pulse Resp BP Pulse Ox 10/15/20 08:43 97.8 F 76 18 123/62 H 92 10/15/20 07:00 93 Medical Necessity - Tobacco Use Smoking Status: Former smoker Tobacco Use: Cigarettes Assessment/Plan All Active Problems Acute respiratory failure with hypoxia (Acute) Hypokalemia (Acute) Metabolic acidosis (Acute) Acute hypoxic respiratory failure secondary to acute Covid 19 pneumonia -Patient has had an outpatient negative Covid rapid and was negative with a PCR here but my suspicion remains high based on her symptoms and presentation -X-ray shows bilateral patchy infiltrates -CTA that was performed on 10/14/2020 shows no pulmonary emboli but bilateral peripheral infiltrates in upper and lower lobes that is highly suspicious for Covid pneumonia -Respiratory panel negative -Legionella and strep pneumo urine antigens are negative -Blood and urine cultures are pending -Discontinue antibiotics -Continue supplemental oxygen--> patient is currently on 5 L nasal cannula with an SPO2 of 92-93% -Titrate up or down as needed/able -Decadron 6 mg a day--> day 2 -Remdesivir day 2 of -Infectious disease consult pending will likely be seen on Saturday Hypokalemia -Repeat 40 mEq p.o. potassium today -Repeat potassium in a.m. -Magnesium is within normal limits Nonanion gap metabolic acidosis secondary to hyperchloremia -Repeat a.m. lab -D/C IV fluids TSH -Suspect euthyroid sick -Check free T4 in a.m. DM-1 -At baseline patient is on Lantus 20 units at at bedtime and lispro 3 units 3 times daily -We will increase to Lantus 30 units at at bedtime and units 5 times daily of lispro with Decadron dosing -Continue SSI -Fasting blood sugar this morning was 198 -No signs of DKA Hypertension Continue lisinopril 40 mg daily -Her serum creatinine closely Hyperlipidemia -Continue atorvastatin 20 mg daily GERD -Continue Protonix 40 mg daily Urinary incontinence -Continue oxybutynin 5 mg p.o. twice daily DVT prophylaxis -Lovenox 40 mg daily CODE STATUS -Full code Inpatient E&M: [id number] [facility] Hosp L3
[2020-10-15] MEDS: Potassium Chloride Oral Tablet 20 MEQ 40 MEQ PO (10:19)
--- NOTE | 2020-10-15 11:25 | CASEMGMT ---
RONDA DELGADO called patient in room for initial transition planning/care coordination assessment. RONDA DELGADO introduced self and role at [facility]. Patient lying in bed, alert and oriented. Patient willing to participate in assessment and is able to answer all questions appropriately. Care providers, pharmacy, and demographics verified. Patient wishes to discharge home, denies need for home health at this time. Patient states she has no further needs or concerns at this time. CM to follow for discharge planning needs that may arise. PCP: No PCP, list provided to patient Specialists: Tristin recreation aide Yazmin Pharmacy: [facility] Insurance: [employer] Prescription Benefit: yes Living Will/HPOA: none LNOK: sister, brother Living Arrangements: Patient lives with roommates in a 2 story home. Patient is independent and able to ambulate stairs. Patient states she is able to self isolate at home. Transportation: self/roommates DME/HHC: Patient states she has glucometer and testing supplies. Patient denies further DME or HHC. Patient currently on oxygen, will monitor for home oxygen at discharge. RONDA DELGADO review list of DME companies in-network with insurance and patient agreeable to [employer] Green sheet place on chart for home oxygen setup Disposition Plan: Patient to discharge home with family support and follow-up plans in place. Allyn ADAMES, RN, CM
[2020-10-15 11:56] LABS: Bedside Glucose 285 mg/dL (70-110)
--- NOTE | 2020-10-15 15:18 | NURSING ---
Hygiene supplies given to patient for daily care per patient request.
[2020-10-15 17:10] LABS: Bedside Glucose 241 mg/dL (70-110)
[2020-10-15] MEDS: Atorvastatin Calcium 20 MG Tablet PO (21:45)
[2020-10-15] MEDS: MELATONIN 3 MG TABLET PO (22:00)
[2020-10-16] VITALS (7 sets, daily range): BP systolic 101–151; BP diastolic 55–79; PULSE 52–64; RESP 18; TEMP 36.1–36.6; O2SAT 93–96
[2020-10-16 03:36] LABS: Bedside Glucose 316 mg/dL (70-110)
[2020-10-16 04:07] LABS: Absolute Lymphocyte Count 0.94 X10^3/uL (0.83-4.51); Absolute Neutrophil Count 7.2 X10^3/uL (2.0-7.7); Hematocrit 36.5 % (37-47); Hemoglobin 11.7 g/dL (12.0-15.0); Lymphocyte # 0.94 X10^3/ul (0.83-4.51); Lymphocyte % 10.6 % (19-41); Mean Corp Hgb Conc 32.1 g/dL (32-36); Mean Corpuscular Hgb 27.6 pg (27.0-32.0); Mean Corpuscular Volume 86.1 fL (81-99); Mean Platelet Vol. 11.2 fl (6.2-12.0); Monocyte% 7.9 % (0-10); NRBC Flagged by Analyzer 0 % (0-5); Neutrophil # 7.17 X10^3/uL (2.7-7.7); Neutrophil % 80.9 % (47-70); Platelet Count 248 K/mm3 (150-450); RBC Distribution Width CV 19.7 % (11.6-14.6); RBC Distribution Width SD 61.1 fl (35.1-43.9); Red Blood Count 4.24 M/mm3 (4.2-5.4); White Blood Count 8.9 K/mm3 (4.4-11.0)
[2020-10-16 04:26] LABS: ALB/GLOB Ratio 0.7 RATIO (0.9-2.4); AST(SGOT) 14 U/L (15-37); Alanine Aminotransfer ALT/SGPT 18 U/L (13-56); Albumin, Serum 2.5 g/dL (3.2-5.0); Alkaline Phosphatase 45 U/L (45-117); Anion Gap 8 (5-15); BUN 17 mg/dL (7-18); BUN/Creat Ratio 23.2 RATIO (10-20); Calcium,Total 8.3 mg/dL (8.5-10.1); Chloride 113 mmol/L (98-107); Creatinine, Serum 0.73 mg/dL (0.55-1.02); EST Glomerular Filtration Rate 90 mL/min (>60); Est Glom Filt Rate - Afr Amer 109 mL/min (>60); Estimated Creatinine Clearance 77.11 ml/min; Globulin 3.8 g/dL (2.2-4.2); Glucose 272 mg/dL (74-106); Potassium 4.1 mmol/L (3.5-5.1); Protein, Total 6.3 g/dL (6.4-8.2); Sodium Level 142 mmol/L (136-145); T4 Free Direct 1.13 ng/dL (0.76-1.46)
[2020-10-16 04:31] LABS: Phosphorus 3.1 mg/dL (2.5-4.9)
[2020-10-16] MEDS: Insulin Lispro 100 UNIT/ML INSULN.PEN SC ×4 (08:26→20:10)
[2020-10-16] MEDS: Insulin Lispro 100 UNIT/ML INSULN.PEN 8 UNIT SC (08:26)
[2020-10-16] MEDS: dexAMETHasone 4 MG Tablet 6 MG PO (08:28)
[2020-10-16] MEDS: Lisinopril 40 MG Tablet PO (08:29)
[2020-10-16] MEDS: Pantoprazole Sodium 40 MG Tablet PO (08:29)
[2020-10-16] MEDS: Enoxaparin 40 MG/0.4 ML Syringe SC (08:29)
[2020-10-16] MEDS: Oxybutynin 5 MG Tablet PO ×2 (08:29→20:09)
[2020-10-16] MEDS: Na Biphos/Potassium Phosphate PACKET 1 PACKET PO (08:30)
[2020-10-16 09:40] LABS: Bedside Glucose 178 mg/dL (70-110)
--- NOTE | 2020-10-16 10:48 | PCM.PN.HOSP ---
Patient Problems: Active and Suspected Problems Acute respiratory failure with hypoxia (Acute) Hypokalemia (Acute) Metabolic acidosis (Acute) Subjective: Patient states she is feeling pretty poorly. She states she has had continued fevers overnight. She complains of the sensation of shortness of breath. She also complains of nasal congestion. She remains on 5 L nasal cannula today with stable oxygen saturations. Vitals/I&O's: Vital Signs Temp Pulse Resp BP Pulse Ox 97.9 F 64 18 111/66 96 10/16/20 08:32 10/16/20 08:32 10/16/20 08:32 10/16/20 08:32 10/16/20 08:32 Oxygen Flow Rate (L/min) 5 Oxygen Delivery Method Nasal Cannula Weight: 75.7 kg Body Mass Index (BMI) 29.5 Finger Stick Blood Glucose 261 Intake and Output for Last 24 Hours 10/14/20 10/15/20 10/16/20 23:59 23:59 23:59 Intake Total 1835.40 / 1835.40 2481.25 / 2481.25 300 / 300 Balance 1835.40 / 1835.40 2481.25 / 2481.25 300 / 300 General: Alert, Oriented x3, Cooperative, Well developed, Well nourished, - - Middle-aged white female who is lying in bed, appears as if she does not feeling well, but nontoxic HEENT: Atraumatic, Normocephalic Oral: Moist Mucosa, - - No thrush Lungs: No rhonchi, No wheeze, No rales, Diminished - Diffusely Cardiovascular: Regular rate, Regular Rhythm, Normal S1, Normal S2, No murmurs, No Ectopic Activity, No rub noted, No Gallop Abdomen: Bowel Sounds Present, Soft, Non Tender, Non-Distended, No Hepato-splenomegaly, No hernias noted Extremities: No clubbing, No cyanosis, No edema, Capillary Refill Less than 3 Seconds, Peripheral Pulses Normal Neurological: Cranial nerves II-XII grossly intact, Neuro grossly intact Psych/Mental Status: Appropriate, Flat Affect Microbiology Past 72 Hours 10/14/20 11:45 Urine, Clean Catch Urine Culture - Final Mixed Gram Positive Organisms 10/14/20 10:25 Blood Culture (Wb) - Anticubital Right Blood Culture - Preliminary No growth in 48 hours. 10/14/20 11:08 Blood Culture (Wb) - Right Hand Blood Culture - Preliminary No growth in 48 hours. 10/14/20 10:13 Mucosa - Nasopharyngeal Respiratory Panel (PCR) - Final 10/14/20 11:09 Urine, Clean Catch Legionella Antigen - Final 10/14/20 11:09 Urine, Clean Catch Streptococcus pneumoniae Antigen (M - Final Laboratory Results 10/15/20 11:17: POC Glucose 285 H 10/15/20 16:58: POC Glucose 241 H 10/15/20 21:43: POC Glucose 316 H 10/16/20 03:30: WBC 8.9, RBC 4.24, Hgb 11.7 L, Hct 36.5 L, MCV 86.1, MCH 27.6, MCHC 32.1, RDW Std Deviation 61.1 H, RDW Coeff of Jv 19.7 H, Plt Count 248, MPV 11.2, Immature Gran % (Auto) 0.600, Neut % (Auto) 80.9 H, Lymph % (Auto) 10.6 L, [place] % (Auto) 7.9, Eos % (Auto) 0.0, Baso % (Auto) 0.0, Absolute Neuts (auto) 7.2, Absolute Lymphs (auto) 0.94, Nucleated RBC % 0 10/16/20 03:30: Sodium 142, Potassium 4.1, Chloride 113 H, Carbon Dioxide 21.0, Anion Gap 8, BUN 17, Creatinine 0.73, Estim Creat Clear Calc 77.11, Est GFR (MDRD) Af Amer 109, Est GFR (MDRD) Non-Af 90, BUN/Creatinine Ratio 23.2 H, Glucose 272 H, Calcium 8.3 L, Total Bilirubin 0.20, AST 14 L, ALT 18, Alkaline Phosphatase 45, Total Protein 6.3 L, Albumin 2.5 L, Globulin 3.8, Albumin/Globulin Ratio 0.7 L, Free T4 1.13 10/16/20 03:30: Phosphorus 3.1 10/16/20 08:24: POC Glucose 178 H Current Medications Acetaminophen (Acetaminophen 325 Mg Tablet) 650 mg PO Q6H PRN PRN PRN Reason: Pain Score 1-10/Temp > 100.7 F Last Admin: 10/15/20 21:45 Dose: 650 mg Documented by: Albuterol Sulfate (Albuterol 2.5 Mg/3 Ml Vial.Neb.) 2.5 mg INHALATION Q4H PRN PRN Reason: SOB &/OR WHEEZING Atorvastatin Calcium (Atorvastatin Calcium 20 Mg Tablet) 20 mg PO DAILY@2200 [facility] Last Admin: 10/15/20 21:45 Dose: 20 mg Documented by: Dexamethasone (Dexamethasone 4 Mg Tablet) 6 mg PO DAILY [facility] Last Admin: 10/16/20 08:28 Dose: 6 mg Documented by: Enoxaparin Sodium (Enoxaparin 40 Mg/0.4 Ml Syringe) 40 mg SC DAILY [facility] Last Admin: 10/16/20 08:29 Dose: 40 mg Documented by: Ferrous Sulfate (Ferrous Sulfate 325 Mg Tablet) 325 mg PO BID@1200,1700 [facility] Last Admin: 10/15/20 18:51 Dose: 325 mg Documented by: Sodium Chloride () 250 mls @ 15 mls/hr IV .[id number] PRN PRN Reason: Saline Flush Remdesivir 100 mg/ Sodium (Chloride) 250 mls @ 125 mls/hr IV DAILY [facility]; Protocol Stop: 10/18/20 11:59 Last Infusion: 10/15/20 13:57 Dose: Infused Documented by: Insulin Glargine (Insulin Glargine 100 Units/Ml Pen) 38 units SC QHS [facility] Insulin Human Lispro (Insulin Lispro 100 Unit/Ml Insuln.Pen) 0 unit SC ACHS [facility]; Protocol Last Admin: 10/16/20 08:26 Dose: 1 u Documented by: Insulin Human Lispro (Insulin Lispro 100 Unit/Ml Insuln.Pen) 8 unit SC TIDCM [facility] Last Admin: 10/16/20 08:26 Dose: 8 u Documented by: Lisinopril (Lisinopril 40 Mg Tablet) 40 mg PO DAILY [facility] Last Admin: 10/16/20 08:29 Dose: 40 mg Documented by: Melatonin (Melatonin 3 Mg Tablet) 3 mg PO QHS PRN PRN PRN Reason: INSOMNIA Last Admin: 10/15/20 22:00 Dose: 3 mg Documented by: Ondansetron HCl (Ondansetron 4 Mg/2 Ml Vial) 4 mg IV Q8H PRN PRN PRN Reason: NAUSEA/VOMITING Oxybutynin Chloride (Oxybutynin 5 Mg Tablet) 5 mg PO BID [facility] Last Admin: 10/16/20 08:29 Dose: 5 mg Documented by: Pantoprazole Sodium (Pantoprazole Sodium 40 Mg Tablet) 40 mg PO DAILY JOHN Last Admin: 10/16/20 08:29 Dose: 40 mg Documented by: Senna/Docusate Sodium (Senna/Docusate Sodium 1 Tablet) 2 tablet PO BID PRN PRN PRN Reason: Constipation Sodium Chloride (0.9% Saline Lock 10 Ml Syringe) 10 - 40 ml IV UD PRN PRN Reason: SALINE FLUSH Last Admin: 10/15/20 04:09 Dose: 10 ml Documented by: Throat Lozenges (Benzocaine/Menthol 1 Lozenge) 1 lozenge MUCOUS MEM Q2H PRN PRN PRN Reason: SORE THROAT STROKE Vital Signs/Narrative: Vital Signs Temp Pulse Resp BP Pulse Ox 10/16/20 08:32 97.9 F 64 18 111/66 96 10/16/20 06:53 94 Medical Necessity - Tobacco Use Smoking Status: Former smoker Tobacco Use: Cigarettes Assessment/Plan All Active Problems Acute respiratory failure with hypoxia (Acute) Hypokalemia (Acute) Metabolic acidosis (Acute) Acute hypoxic respiratory failure secondary to acute Covid 19 pneumonia -Patient has had an outpatient negative Covid rapid and was negative with a PCR here but my suspicion remains high based on her symptoms and presentation -X-ray shows bilateral patchy infiltrates -CTA that was performed on 10/14/2020 shows no pulmonary emboli but bilateral peripheral infiltrates in upper and lower lobes that is highly suspicious for Covid pneumonia -Respiratory panel negative -Legionella and strep pneumo urine antigens are negative -Urine culture shows mixed and positive organisms--> contaminated -Blood cultures are negative -Continue supplemental oxygen--> patient is currently on 5 L nasal cannula with an SPO2 of 93-96% -Titrate up or down as needed/able -Decadron 6 mg a day--> day 3 of 10 -Remdesivir day 3 of 5 -Infectious disease consult pending will likely be seen on Saturday -?repeat PCR versus antibodies Hypokalemia -Resolved Nonanion gap metabolic acidosis secondary to hyperchloremia -Resolved Euthyroid sick -TSH was low but free T4 is within normal limits DM-1 -At baseline patient is on Lantus 20 units at at bedtime and lispro 3 units 3 times daily -We will increase to Lantus 50 units at at bedtime and units 12 times daily of lispro with Decadron dosing -Continue SSI -Fasting blood sugar this morning was 198 -No signs of DKA Hypertension -Continue lisinopril 40 mg daily -Her serum creatinine closely -Serum creatinine remains normal -Blood pressures are in goal ranges Hyperlipidemia -Continue atorvastatin 20 mg daily GERD -Continue Protonix 40 mg daily Urinary incontinence -Continue oxybutynin 5 mg p.o. twice daily DVT prophylaxis -Lovenox 40 mg daily CODE STATUS -Full code Inpatient E&M: 75377 Subs Hosp L2
[2020-10-16] MEDS: Acetaminophen 325 MG Tablet 650 MG PO ×2 (11:03→21:56)
[2020-10-16] MEDS: Insulin Lispro 100 UNIT/ML INSULN.PEN 12 UNIT SC ×2 (11:46→16:53)
[2020-10-16 12:11] LABS: Bedside Glucose 250 mg/dL (70-110)
[2020-10-16] MEDS: Ferrous Sulfate 325 MG Tablet PO ×2 (12:19→16:53)
[2020-10-16] MEDS: 0.9% Saline Lock 10 ML Syringe IV (13:50)
[2020-10-16] MEDS: Sodium Chloride 0.65% 1 SPRAY SPRAY.BTL 2 SPRAY NASAL (15:40)
[2020-10-16 17:10] LABS: Bedside Glucose 272 mg/dL (70-110)
[2020-10-16] MEDS: Atorvastatin Calcium 20 MG Tablet PO (20:09)
[2020-10-16 21:15] LABS: Bedside Glucose 340 mg/dL (70-110)
[2020-10-16] MEDS: MELATONIN 3 MG TABLET PO (21:56)
[2020-10-17 02:13] VITALS: BP 126/72; PULSE 56; RESP 18; TEMP 36.2; O2SAT 95
[2020-10-17 07:25] LABS: Absolute Neutrophil Count 8.6 X10^3/uL (2.0-7.7); Basophil# 0.02 X10^3/uL; Basophil% 0.2 % (0-1); Hematocrit 37.2 % (37-47); Hemoglobin 12.1 g/dL (12.0-15.0); Lymphocyte % 12.6 % (19-41); Mean Corp Hgb Conc 32.5 g/dL (32-36); Mean Corpuscular Hgb 27.5 pg (27.0-32.0); Mean Corpuscular Volume 84.5 fL (81-99); Mean Platelet Vol. 10.3 fl (6.2-12.0); Monocyte# 1.02 X10^3/uL; Monocyte% 9.2 % (0-10); NRBC Flagged by Analyzer 0 % (0-5); Neutrophil # 8.59 X10^3/uL (2.7-7.7); Neutrophil % 77.4 % (47-70); Platelet Count 303 K/mm3 (150-450); RBC Distribution Width CV 19.5 % (11.6-14.6); RBC Distribution Width SD 59.9 fl (35.1-43.9); White Blood Count 11.1 K/mm3 (4.4-11.0)
[2020-10-17 07:52] LABS: ALB/GLOB Ratio 0.8 RATIO (0.9-2.4); AST(SGOT) 9 U/L (15-37); Alanine Aminotransfer ALT/SGPT 19 U/L (13-56); Albumin, Serum 2.6 g/dL (3.2-5.0); Alkaline Phosphatase 46 U/L (45-117); Anion Gap 9 (5-15); BUN 22 mg/dL (7-18); BUN/Creat Ratio 35.9 RATIO (10-20); Calcium,Total 8.4 mg/dL (8.5-10.1); Chloride 111 mmol/L (98-107); Creatinine, Serum 0.61 mg/dL (0.55-1.02); EST Glomerular Filtration Rate 110 mL/min (>60); Est Glom Filt Rate - Afr Amer 133 mL/min (>60); Estimated Creatinine Clearance 92.28 ml/min; Globulin 3.1 g/dL (2.2-4.2); Glucose 177 mg/dL (74-106); Potassium 3.8 mmol/L (3.5-5.1); Protein, Total 5.7 g/dL (6.4-8.2); Sodium Level 143 mmol/L (136-145)
[2020-10-17 07:59] VITALS: O2SAT 94
[2020-10-17 08:15] VITALS: BP 115/70; PULSE 58; RESP 18; TEMP 36.8; O2SAT 94
[2020-10-17] MEDS: Pantoprazole Sodium 40 MG Tablet PO (08:59)
[2020-10-17] MEDS: dexAMETHasone 4 MG Tablet 6 MG PO (08:59)
[2020-10-17] MEDS: Oxybutynin 5 MG Tablet PO ×2 (08:59→22:02)
[2020-10-17] MEDS: Lisinopril 40 MG Tablet PO (08:59)
[2020-10-17] MEDS: Insulin Lispro 100 UNIT/ML INSULN.PEN SC ×4 (09:00→22:01)
[2020-10-17] MEDS: Insulin Lispro 100 UNIT/ML INSULN.PEN 12 UNIT SC ×2 (09:00→12:43)
[2020-10-17] MEDS: Enoxaparin 40 MG/0.4 ML Syringe SC (09:02)
[2020-10-17 09:31] LABS: Bedside Glucose 165 mg/dL (70-110)
[2020-10-17] MEDS: 0.9% Saline Lock 10 ML Syringe IV (10:12)
--- NOTE | 2020-10-17 10:35 | PN_ITS ---
Patient Problems: Active and Suspected Problems Acute respiratory failure with hypoxia (Acute) Hypokalemia (Acute) Metabolic acidosis (Acute) Reason for Visit: Follow-up for COVID-19 with hypoxia. Objective: Seen and examined. Patient on 4 L of oxygen. Mild short of breath. Mild dry cough but no sputum production. Mild nausea and loose bowel movement but denies vomiting/diarrhea. Physical exam General: Alert, Oriented x3, Cooperative HEENT: Atraumatic, PERRLA, EOMI, Normocephalic Oral: No Gingival or Mucosal Lesions/ Ulcerations Neck: Supple, No JVD, Negative Carotid Bruits Lungs: Air entry diminished in bilateral lung bases. No crepitation/rhonchi Cardiovascular: Regular rate, Regular Rhythm, Normal S1, Normal S2, No murmurs Abdomen: Bowel Sounds Present, Soft, Non Tender, Non-Distended : No renal angle tenderness. No suprapubic tenderness. Extremities: No edema, Capillary Refill Less than 3 Seconds Skin: No rashes, No breakdown Musculoskeletal: No Tenderness to Palpation of Joints or Extremities Neurological: Cranial nerves II-XII grossly intact, Deep Tendon Reflexes 2+/4 and Symmetrical, Neuro grossly intact Psych/Mental Status: Normal Affect, Appropriate. Vitals/I&O's: Vital Signs Temp Pulse Resp BP Pulse Ox 98.2 F 58 L 18 115/70 94 10/17/20 08:15 10/17/20 08:15 10/17/20 08:15 10/17/20 08:15 10/17/20 08:15 Oxygen Flow Rate (L/min) 4 Oxygen Delivery Method Nasal Cannula Weight: 166 lb 14.239 oz Body Mass Index (BMI) 29.5 Finger Stick Blood Glucose 261 Intake and Output for Last 24 Hours 10/15/20 10/16/20 10/17/20 23:59 23:59 23:59 Intake Total 2481.25 / 2481.25 1350 / 1350 700 / 700 Balance 2481.25 / 2481.25 1350 / 1350 700 / 700 Microbiology Past 72 Hours 10/14/20 11:45 Urine, Clean Catch Urine Culture - Final Mixed Gram Positive Organisms 10/14/20 10:25 Blood Culture (Wb) - Anticubital Right Blood Culture - Preliminary No growth in 48 hours. 10/14/20 11:08 Blood Culture (Wb) - Right Hand Blood Culture - Preliminary No growth in 48 hours. 10/14/20 10:13 Mucosa - Nasopharyngeal Respiratory Panel (PCR) - Final 10/14/20 11:09 Urine, Clean Catch Legionella Antigen - Final 10/14/20 11:09 Urine, Clean Catch Streptococcus pneumoniae Antigen (M - Final Laboratory Results 10/16/20 11:42: POC Glucose 250 H 10/16/20 16:52: POC Glucose 272 H 10/16/20 20:06: POC Glucose 340 H 10/17/20 07:04: WBC 11.1 H, RBC 4.40, Hgb 12.1, Hct 37.2, MCV 84.5, MCH 27.5, MCHC 32.5, RDW Std Deviation 59.9 H, RDW Coeff of Jv 19.5 H, Plt Count 303, MPV 10.3, Immature Gran % (Auto) 0.600, Neut % (Auto) 77.4 H, Lymph % (Auto) 12.6 L, [place] % (Auto) 9.2, Eos % (Auto) 0.0, Baso % (Auto) 0.2, Absolute Neuts (auto) 8.6 H, Absolute Lymphs (auto) 1.40, Nucleated RBC % 0 10/17/20 07:04: Sodium 143, Potassium 3.8, Chloride 111 H, Carbon Dioxide 23.0, Anion Gap 9, BUN 22 H, Creatinine 0.61, Estim Creat Clear Calc 92.28, Est GFR (MDRD) Af Amer 133, Est GFR (MDRD) Non-Af 110, BUN/Creatinine Ratio 35.9 H, Glucose 177 H, Calcium 8.4 L, Total Bilirubin 0.20, AST 9 L, ALT 19, Alkaline Phosphatase 46, Total Protein 5.7 L, Albumin 2.6 L, Globulin 3.1, Albumin/Globulin Ratio 0.8 L 10/17/20 07:04: SARS-CoV-2 IgM Ab Pending 10/17/20 08:48: POC Glucose 165 H Current Medications Acetaminophen (Acetaminophen 325 Mg Tablet) 650 mg PO Q6H PRN PRN PRN Reason: Pain Score 1-10/Temp > 100.7 F Last Admin: 10/16/20 21:56 Dose: 650 mg Documented by: Albuterol Sulfate (Albuterol 2.5 Mg/3 Ml Vial.Neb.) 2.5 mg INHALATION Q4H PRN PRN Reason: SOB &/OR WHEEZING Atorvastatin Calcium (Atorvastatin Calcium 20 Mg Tablet) 20 mg PO DAILY@2200 [facility] Last Admin: 10/16/20 20:09 Dose: 20 mg Documented by: Dexamethasone (Dexamethasone 4 Mg Tablet) 6 mg PO DAILY [facility] Last Admin: 10/17/20 08:59 Dose: 6 mg Documented by: Enoxaparin Sodium (Enoxaparin 40 Mg/0.4 Ml Syringe) 40 mg SC DAILY [facility] Last Admin: 10/17/20 09:02 Dose: 40 mg Documented by: Ferrous Sulfate (Ferrous Sulfate 325 Mg Tablet) 325 mg PO BID@1200,1700 [facility] Last Admin: 10/16/20 16:53 Dose: 325 mg Documented by: Sodium Chloride () 250 mls @ 15 mls/hr IV .[id number] PRN PRN Reason: Saline Flush Remdesivir 100 mg/ Sodium (Chloride) 250 mls @ 125 mls/hr IV DAILY [facility]; Protocol Stop: 10/18/20 11:59 Last Admin: 10/17/20 10:14 Dose: 125 mls/hr Documented by: Insulin Glargine (Insulin Glargine 100 Units/Ml Pen) 50 units SC QHS [facility] Last Admin: 10/16/20 20:09 Dose: 50 units Documented by: Insulin Human Lispro (Insulin Lispro 100 Unit/Ml Insuln.Pen) 0 unit SC ACHS [facility]; Protocol Last Admin: 10/17/20 09:00 Dose: 1 u Documented by: Insulin Human Lispro (Insulin Lispro 100 Unit/Ml Insuln.Pen) 12 unit SC TIDCM [facility] Last Admin: 10/17/20 09:00 Dose: 13 u Documented by: Lisinopril (Lisinopril 40 Mg Tablet) 40 mg PO DAILY [facility] Last Admin: 10/17/20 08:59 Dose: 40 mg Documented by: Melatonin (Melatonin 3 Mg Tablet) 3 mg PO QHS PRN PRN PRN Reason: INSOMNIA Last Admin: 10/16/20 21:56 Dose: 3 mg Documented by: Ondansetron HCl (Ondansetron 4 Mg/2 Ml Vial) 4 mg IV Q8H PRN PRN PRN Reason: NAUSEA/VOMITING Oxybutynin Chloride (Oxybutynin 5 Mg Tablet) 5 mg PO BID [facility] Last Admin: 10/17/20 08:59 Dose: 5 mg Documented by: Pantoprazole Sodium (Pantoprazole Sodium 40 Mg Tablet) 40 mg PO DAILY [facility] Last Admin: 10/17/20 08:59 Dose: 40 mg Documented by: Senna/Docusate Sodium (Senna/Docusate Sodium 1 Tablet) 2 tablet PO BID PRN PRN PRN Reason: Constipation Sodium Chloride (0.9% Saline Lock 10 Ml Syringe) 10 - 40 ml IV UD PRN PRN Reason: SALINE FLUSH Last Admin: 10/17/20 10:12 Dose: 10 ml Documented by: Sodium Chloride (Sodium Chloride 0.65% 1 [place].Btl) 2 spray NASAL BID PRN PRN PRN Reason: NASAL DRYNESS Last Admin: 10/16/20 15:40 Dose: 2 spray Documented by: Throat Lozenges (Benzocaine/Menthol 1 Lozenge) 1 lozenge MUCOUS MEM Q2H PRN PRN PRN Reason: SORE THROAT STROKE Vital Signs/Narrative: Vital Signs Temp Pulse Resp BP Pulse Ox 10/17/20 08:15 98.2 F 58 L 18 115/70 94 10/17/20 07:59 94 Medical Necessity - Tobacco Use Smoking Status: Former smoker Tobacco Use: Cigarettes Assessment/Plan All Active Problems Acute respiratory failure with hypoxia (Acute) Hypokalemia (Acute) Metabolic acidosis (Acute) 1. Acute hypoxic respiratory failure secondary to COVID-19 pneumonia: Seen by ID. Covid PCR is negative but high clinical suspicion based on clinical findings, labs, and CT results. Patient symptoms started 10/05. On 10 days of dexamethasone. On remdesivir, last dose tomorrow. Quarantine until 10/25. Urinary antigens are negative. Blood cultures x2 are negative. Respiratory panel negative 2. Non-anion gap metabolic acidosis with hyperchloremia and mild hypokalemia: Potassium replaced. 3. Euthyroid sick syndrome: TSH low but free T4 normal. 4. Diabetes mellitus type 1: On 40 units of Lantus at bedtime and lispro 12 units 3 times daily with meals. Blood sugar profiles are better. Increase lispro insulin. 5. Other comorbidities include hypertension, dyslipidemia, GERD, chronic urinary incontinence: Home medication reconciliation done. Blood pressure is controlled. 6. VTE prophylaxis: Lovenox 40-minute subcu daily Full code. Inpatient E&M: 30629 Subs Hosp L2
[2020-10-17] MEDS: Ferrous Sulfate 325 MG Tablet PO ×2 (12:42→17:14)
[2020-10-17 13:26] LABS: Bedside Glucose 318 mg/dL (70-110)
[2020-10-17] MEDS: Acetaminophen 325 MG Tablet 650 MG PO ×2 (13:29→20:08)
--- NOTE | 2020-10-17 13:36 | CON.PCM_ITS ---
Problem List (1) Acute respiratory failure with hypoxia Status: Acute Reason for Consult: suspected covid Consulted by: Dr. Finney History of Present Illness: The patient is a 50 year old F with T1DM, presented 10/14 with sx since 10/05 with progressive fever, chills, fatigue, headache, diffuse muscle aches, n/v/d, dry cough, mild sore throat, loss of appetite, mild decrease in sense of taste/smell. Has not been vaccinated, no sick contacts, no one else at home has been sick. Came to ED, covid neg, but high suspicion, started on dex and remdesivir. Still on O2, feeling a little better. Full ROS performed and neg except as noted above. - Medical History Past Medical History (Chronic Problems): Chronic Problems History of type 1 diabetes mellitus (Chronic) History of hypertension (Chronic) History of hypercholesterolemia (Chronic) History of tobacco abuse (Chronic) Allergies/Adverse Reactions: Allergies No Known Allergies Allergy (Verified 10/14/20 09:53) Home Medications: Ambulatory Orders Medication Instructions Recorded Insulin Glargine [Lantus (BKC)] 20 units SC QHS 07/27/20 Insulin Lispro [Insulin Lispro 3 unit SQ TID 07/27/20 Kwikpen U-100] Lisinopril [Zestril] 40 mg PO DAILY 07/27/20 Oxybutynin [Ditropan] 5 mg PO BID 07/27/20 Pantoprazole Sodium [Protonix] 40 mg PO DAILY 07/27/20 Atorvastatin Calcium [Lipitor] 20 mg PO DAILY 10/05/20 Ferrous Sulfate 325 mg PO BID 10/14/20 - Social History SMOKING STATUS:: Former smoker Vital Signs Temp Pulse Resp BP Pulse Ox 98.2 F 58 L 18 115/70 94 10/17/20 08:15 10/17/20 08:15 10/17/20 08:15 10/17/20 08:15 10/17/20 08:15 Oxygen Flow Rate (L/min) 4 Oxygen Delivery Method Nasal Cannula Weight: 75.7 kg Body Mass Index (BMI) 29.5 Finger Stick Blood Glucose 261 Microbiology Past 72 Hours 10/14/20 11:45 Urine Culture - Final Urine, Clean Catch Mixed Gram Positive Organisms 10/14/20 10:25 Blood Culture - Preliminary Blood Culture (Wb) - Anticubital Right No growth in 48 hours. 04/16/21 11:08 Blood Culture - Preliminary Blood Culture (Wb) - Right Hand No growth in 48 hours. 10/14/20 10:13 Respiratory Panel (PCR) - Final Mucosa - Nasopharyngeal 10/14/20 11:09 Legionella Antigen - Final Urine, Clean Catch Streptococcus pneumoniae Antigen (M - Final Laboratory Tests Past 24 Hrs 10/17/20 10/17/20 10/17/20 07:04 07:04 07:04 WBC 11.1 H RBC 4.40 Hgb 12.1 Hct 37.2 MCV 84.5 MCH 27.5 MCHC 32.5 RDW Std Deviation 59.9 H RDW Coeff of Jv 19.5 H Plt Count 303 MPV 10.3 Immature Gran % (Auto) 0.600 Neut % (Auto) 77.4 H Lymph % (Auto) 12.6 L [place] % (Auto) 9.2 Eos % (Auto) 0.0 Baso % (Auto) 0.2 Absolute Neuts (auto) 8.6 H Absolute Lymphs (auto) 1.40 Nucleated RBC % 0 Sodium 143 Potassium 3.8 Chloride 111 H Carbon Dioxide 23.0 Anion Gap 9 BUN 22 H Creatinine 0.61 Estim Creat Clear Calc 92.28 Est GFR (MDRD) Af Amer 133 Est GFR (MDRD) Non-Af 110 BUN/Creatinine Ratio 35.9 H Glucose 177 H Calcium 8.4 L Total Bilirubin 0.20 AST 9 L ALT 19 Alkaline Phosphatase 46 Total Protein 5.7 L Albumin 2.6 L Globulin 3.1 Albumin/Globulin Ratio 0.8 L SARS-CoV-2 IgM Ab Pending - Other Studies Radiology: [] reviewed Other Studies: [] Route of nutrition/ use of supplements: [] Nutritional Intake: [] IV Site: [] [place] Catheter: [] - Physical Exam General: Alert, Oriented x3, Cooperative, No apparent distress HEENT: Atraumatic, PERRLA, EOMI Neck: Supple, No Nodes Lungs: Clear to auscultation, Diminished Cardiovascular: Regular rate, Regular Rhythm Abdomen: Soft, Non Tender, Non-Distended Extremities: No edema Skin: No rashes IV Site: Peripheral, without redness Musculoskeletal: No Tenderness to Palpation of Joints or Extremities Neurological: Cranial nerves II-XII grossly intact - Assessment/Plan Antibiotics: [] Assessment/Plan: [] Active and Suspected Problems Acute respiratory failure with hypoxia (Acute) Hypokalemia (Acute) Metabolic acidosis (Acute) suspected covid with hypoxia - covid pcr neg here, but high suspicion based on labs, CT results, and symptoms. Still with some hypoxia. Sx started 10/05. Recommend 10 days total of dex. Finishes remdesivir tomorrow. Ok for home today or tomorrow on O2. Quarantine until 10/25. Recommend covid vaccine for her and those at home; she is eligible once she is out of quarantine. Will follow as needed, thank you
--- NOTE | 2020-10-17 13:57 | CHAPLAIN ---
Type of Pastoral Visit _x__ Initial Visit ___ Follow-up Visit ___ On-call Visit ___ General Patient Visit ___ Spiritual Assessment ___ Family Conference ___ Bereavement ___ Rapid Response ___ Code Blue _x__ Other (describe below) Pastoral Care Referral From ___ Patient _x__ Family ___ Nurse ___ Physician ___ Clinical Nurse Educator ___ Quiller Operator ___ Other (describe below) Sacrament/Intervention _x__ Active listening ___ Anointing ___ Gnosticism ___ Bereavement ___ Communion ___ [place] exploration ___ ___ Life review _x__ Prayer ___ Reconciliation ___ Sacrament of Sick ___ Supportive presence ___ Wedding ___ Other (describe below) Pastoral Comments phone call made into isolation room; pt answers the phone and welcomes support of stove fitter; pt requests prayer; pt states she has good care from staff and solid trust in God for her recovery
[2020-10-17 14:15] VITALS: BP 122/72; PULSE 55; RESP 18; TEMP 36.4; O2SAT 95
[2020-10-17] MEDS: Insulin Lispro 100 UNIT/ML INSULN.PEN 18 UNIT SC (17:13)
[2020-10-17 17:36] LABS: Bedside Glucose 395 mg/dL (70-110)
[2020-10-17 20:05] VITALS: BP 123/71; PULSE 60; RESP 20; TEMP 36.8; O2SAT 96
[2020-10-17] MEDS: BENZOCAINE/MENTHOL 1 LOZENGE MUCOUS MEM ×2 (20:08→22:02)
[2020-10-17 21:56] VITALS: BP 143/82; PULSE 61; RESP 18; TEMP 36.7; O2SAT 97
[2020-10-17] MEDS: MELATONIN 3 MG TABLET PO (22:02)
[2020-10-17] MEDS: Atorvastatin Calcium 20 MG Tablet PO (22:02)
[2020-10-17 22:30] LABS: Bedside Glucose 370 mg/dL (70-110)
[2020-10-18] VITALS (9 sets, daily range): BP systolic 111–136; BP diastolic 69–74; PULSE 51–65; RESP 16–20; TEMP 35.7–36.8; O2SAT 88–97
[2020-10-18 07:39] LABS: ALB/GLOB Ratio 0.8 RATIO (0.9-2.4); AST(SGOT) 8 U/L (15-37); Alanine Aminotransfer ALT/SGPT 20 U/L (13-56); Albumin, Serum 2.5 g/dL (3.2-5.0); Alkaline Phosphatase 46 U/L (45-117); Anion Gap 8 (5-15); BUN 21 mg/dL (7-18); BUN/Creat Ratio 34.3 RATIO (10-20); Chloride 109 mmol/L (98-107); Creatinine, Serum 0.61 mg/dL (0.55-1.02); EST Glomerular Filtration Rate 110 mL/min (>60); Est Glom Filt Rate - Afr Amer 133 mL/min (>60); Estimated Creatinine Clearance 92.28 ml/min; Globulin 3.1 g/dL (2.2-4.2); Glucose 170 mg/dL (74-106); Potassium 3.7 mmol/L (3.5-5.1); Protein, Total 5.6 g/dL (6.4-8.2); Sodium Level 141 mmol/L (136-145)
[2020-10-18] MEDS: Insulin Lispro 100 UNIT/ML INSULN.PEN 18 UNIT SC ×3 (08:14→17:13)
[2020-10-18] MEDS: Insulin Lispro 100 UNIT/ML INSULN.PEN SC ×4 (08:14→22:26)
[2020-10-18] MEDS: Pantoprazole Sodium 40 MG Tablet PO (08:15)
[2020-10-18] MEDS: dexAMETHasone 4 MG Tablet 6 MG PO (08:16)
[2020-10-18] MEDS: Acetaminophen 325 MG Tablet 650 MG PO (08:16)
[2020-10-18] MEDS: Lisinopril 40 MG Tablet PO (08:16)
[2020-10-18] MEDS: Oxybutynin 5 MG Tablet PO ×2 (08:17→22:22)
[2020-10-18] MEDS: BENZOCAINE/MENTHOL 1 LOZENGE MUCOUS MEM (08:17)
[2020-10-18] MEDS: Enoxaparin 40 MG/0.4 ML Syringe SC (08:17)
[2020-10-18] MEDS: Ferrous Sulfate 325 MG Tablet PO (08:17)
[2020-10-18] MEDS: 0.9% Saline Lock 10 ML Syringe IV (09:33)
--- NOTE | 2020-10-18 11:12 | CASEMGMT ---
Addendum entered by Allyn Lopez 10/18/20 13:02: [place] [facility] [place] [facility]. D/C summary to be faxed once obtained. Mauri BOND CM Addendum entered by Allyn Lopez 10/18/20 12:03: [place] [facility] [place] today and per rep, they have yet to receive referral even though fax confirmation obtained. Referral re-faxed to [phone] per rep request. CM to follow. Mauri BOND CM Original Note: Per Deneen BOND, pt qualifies for 3L continuous home oxygen. Call to pt room and pt states she would still like [facility] and states no need for any further resources. Pt voices no further questions/concerns/needs. CM to follow for oxygen tank delivery/set up. Mauri BOND CM
--- NOTE | 2020-10-18 11:14 | DCINST_ITS ---
- Discharge Diagnoses Current Active Problems: Current Active and Chronic Problems History of type 1 diabetes mellitus (Chronic) History of hypertension (Chronic) History of hypercholesterolemia (Chronic) Acute respiratory failure with hypoxia (Acute) Hypokalemia (Acute) Metabolic acidosis (Acute) History of tobacco abuse (Chronic) You will use the following diet at home:: Calorie/Carbohydrate Controlled (specify 1200, 1400, etc) - Carb controlled diet, Cardiac Your food should be the consistency of: Regular Discharge Activity: May Not Drive Call your doctor if you observe: Fever of 101 or Higher, Numbness or Tingling, Inability to urinate, Inability to have a bowel movement, Using more than one pad per hour, Shortness of breath, Dizziness, Fainting spells, Swelling in the ankles, Chest pain, Prolonged hiccoughing, Increased palpitations (irregular heartbeat), Calf discomfort, Uncontrolled pain Additional Instructions: Self quarantine until 10/25. Patient is ambulatory in home and in the community and requires home oxygen with portability. Patient was advised to decrease insulin requirement after the completion of dexamethasone according to the Accu-Cheks/Glucocheck. Follow with PCP in 1 to 2 weeks. Allergies/Adverse Reactions: Allergies No Known Allergies Allergy (Verified 10/14/20 09:53) Medications to take at Discharge Lisinopril [Zestril] 40 mg PO DAILY 07/27/20 Oxybutynin [Ditropan] 5 mg PO BID 07/27/20 Pantoprazole Sodium [Protonix] 40 mg PO DAILY 07/27/20 Atorvastatin Calcium [Lipitor] 20 mg PO DAILY 10/05/20 Ferrous Sulfate 325 mg PO BID 10/14/20 Dexamethasone 6 mg PO DAILY #5 tablet 10/18/20 Guaifenesin/Pseudoephedrne HCl [Mucinex D ER 1,200-120 mg Tab] 1 each PO BID #14 tab.er.12h 10/18/20 Insulin Glargine [Lantus SoloStar Pen] 50 units SC QHS #1 pen 10/18/20 Insulin Lispro [Humalog KwikPen] 15 unit SC TIDCM #1 insuln.pen 10/18/20 Insulin Lispro [Humalog KwikPen] See Protocol SC ACHS insuln.pen 10/18/20 Sodium Chloride 0.65% [[place] Nasal [place]] 2 spray NASAL BID PRN PRN spray.btl 10/18/20 The following prescriptions were given: Dexamethasone 6 mg PO DAILY #5 tablet Transmission Status: Pending to RACHEL FLYNN ROSENTHAL ALEJA Insulin Lispro [Humalog KwikPen] 15 unit SC TIDCM #1 insuln.pen Transmission Status: Pending to RACHEL ROSENTHAL ALEJA Insulin Glargine [Lantus SoloStar Pen] 50 units SC QHS #1 pen Transmission Status: Pending to RACHEL ROSENTHAL ALEJA Guaifenesin/Pseudoephedrne HCl [Mucinex D ER 1,200-120 mg Tab] 1 each PO BID #14 tab.er.12h Transmission Status: Pending to RACHEL FLYNN GALO MASTERSON Primary Care Physician: Care Physician,No Primary [Primary Care Provider] - Please follow up with your Primary Care Physician in: In 2 weeks Test Results: Test results from this visit will be discussed in further detail at your follow- up appointment, if applicable. Please Follow Up With: Beto Wong DO When: In 2 weeks with Jackie Diggs NP; on home oxygen, covid
--- NOTE | 2020-10-18 11:29 | PCM.DC.SUM ---
Discharge Date and Diagnosis - Problem List Patient Problems: Active and Suspected Problems Acute respiratory failure with hypoxia (Acute) Hypokalemia (Acute) Metabolic acidosis (Acute) Date of Admission: 10/14/20 Date of Discharge: 10/18/20 - Primary Discharge Diagnosis Acute Problems: Active Problems Acute respiratory failure with hypoxia (Acute) secondary to bilateral COVID-19 pneumonia Hypokalemia (Acute) Metabolic acidosis (Acute) - Secondary Discharge Diagnosis Chronic Problems: Chronic Problems History of type 1 diabetes mellitus (Chronic) History of hypertension (Chronic) History of hypercholesterolemia (Chronic) History of tobacco abuse (Chronic) Hospital Course and Treatment Summary of Care Provided: The patient is a 50 year old F is being admitted with chief complaint of fever, cough nonproductive, myalgia viral-like symptoms including frontal headache and loose stool for [address] chest shows bilateral peripheral infiltrates in both upper and lower lobes consistent with COVID-19 pneumonia. 1. Acute hypoxic respiratory failure secondary to bilateral COVID-19 pneumonia: Seen by ID. Covid PCR is negative but high clinical suspicion based on clinical findings, labs, and CT results. Patient was started on IV dexamethasone and completed remdesivir today. Advised self quarantine until 10/25. SARS-CoV-2 IgM antibody pending. Urinary antigens are negative. Blood cultures x2 are negative. Respiratory panel negative. Patient is discharged on 5 more days of dexamethasone and Mucinex D Patient pulse ox 88% at rest on ambient air, 95% at rest on 4 L of oxygen and 92% ambulating on 3 L of oxygen. Patient is ambulatory in home and in the community and requires home oxygen with portability. 2. Non-anion gap metabolic acidosis with hyperchloremia and mild hypokalemia: Potassium replaced. PT K3.7. 3. Euthyroid sick syndrome: TSH low but free T4 normal. 4. Diabetes mellitus type 1: On 40 units of Lantus at bedtime and lispro 12 units 3 times daily with meals. Blood sugar profiles are better. Increase lispro insulin. 5. Other comorbidities include hypertension, dyslipidemia, GERD, chronic urinary incontinence: Home medication reconciliation done. Blood pressure is controlled. 6. VTE prophylaxis: Lovenox 40-minute subcu daily Discharge medication reconciliation done. Discharge follow-up instructions completed. Discharge process discussed with the patient and all questions were answered to patient's satisfaction. Total time spent, exact 35 minutes on discharge meds reconciliation, examination, coordination of care with nurses and ancillary staff, review of imaging and blood test and discussion with the patient on follow-up instructions Clinical Impression(s) from Imaging Studies Chest X-Ray 10/14/20 11:20 IMPRESSION: Patchy bilateral pulmonary infiltrates worse in the left hemithorax. Electronically Signed: Bhavin Avila MD at 12:02 EDT , Service support , Chest CTA 10/14/20 17:19 IMPRESSION: Bilateral peripheral infiltrates in both upper and lower lobes highly suspicious for Covid 19 pneumonia. No evidence for pulmonary embolus. DOPPLER scan of the deep venous system of lower extremities recommended for further evaluation if clinically warranted. Patient Problems: Active and Suspected Problems Acute respiratory failure with hypoxia (Acute) Hypokalemia (Acute) Metabolic acidosis (Acute) Objective: Seen and examined. Patient is not short of breath but complains of sinus congestion and cold symptoms. No fever. Pulse ox stable 96% on 3 L of oxygen. Physical exam General: Alert, Oriented x3, Cooperative HEENT: Atraumatic, PERRLA, EOMI, Normocephalic Oral: No Gingival or Mucosal Lesions/ Ulcerations Neck: Supple, No JVD, Negative Carotid Bruits Lungs: Air entry diminished in bilateral lung bases. No crepitation/rhonchi Cardiovascular: Regular rate, Regular Rhythm, Normal S1, Normal S2, No murmurs Abdomen: Bowel Sounds Present, Soft, Non Tender, Non-Distended : No renal angle tenderness. No suprapubic tenderness. Extremities: No edema, Capillary Refill Less than 3 Seconds Skin: No rashes, No breakdown Musculoskeletal: No Tenderness to Palpation of Joints or Extremities Neurological: Cranial nerves II-XII grossly intact, Deep Tendon Reflexes 2+/4 and Symmetrical, Neuro grossly intact Psych/Mental Status: Normal Affect, Appropriate. - Physical Exam Vitals/I&O's: Vital Signs Temp Pulse Resp BP Pulse Ox 96.3 F L 52 L 18 132/69 H 96 10/18/20 08:10 10/18/20 09:37 10/18/20 08:10 10/18/20 08:10 10/18/20 09:37 Oxygen Flow Rate (L/min) [ 3 AMBULATING with Oxygen #1] Oxygen Flow Rate (L/min) [At 4 REST with Oxygen] Oxygen Flow Rate (L/min) 3 Oxygen Delivery Method Nasal Cannula Weight: 166 lb 14.239 oz Body Mass Index (BMI) 29.5 Finger Stick Blood Glucose 261 Intake and Output for Last 24 Hours 10/16/20 10/17/20 10/18/20 23:59 23:59 23:59 Intake Total 1350 / 1350 1670 / 1670 120 / 120 Balance 1350 / 1350 1670 / 1670 120 / 120 Microbiology Past 72 Hours 10/14/20 11:45 Urine, Clean Catch Urine Culture - Final Mixed Gram Positive Organisms 10/14/20 10:25 Blood Culture (Wb) - Anticubital Right Blood Culture - Preliminary No growth in 48 hours. 10/14/20 11:08 Blood Culture (Wb) - Right Hand Blood Culture - Preliminary No growth in 48 hours. Laboratory Results 10/17/20 12:41: POC Glucose 318 H 10/17/20 17:11: POC Glucose 395 H 10/17/20 21:59: POC Glucose 370 H 10/18/20 06:35: Sodium 141, Potassium 3.7, Chloride 109 H, Carbon Dioxide 24.0, Anion Gap 8, BUN 21 H, Creatinine 0.61, Estim Creat Clear Calc 92.28, Est GFR (MDRD) Af Amer 133, Est GFR (MDRD) Non-Af 110, BUN/Creatinine Ratio 34.3 H, Glucose 170 H, Calcium 8.0 L, Total Bilirubin 0.20, AST 8 L, ALT 20, Alkaline Phosphatase 46, Total Protein 5.6 L, Albumin 2.5 L, Globulin 3.1, Albumin/Globulin Ratio 0.8 L Current Medications Acetaminophen (Acetaminophen 325 Mg Tablet) 650 mg PO Q6H PRN PRN PRN Reason: Pain Score 1-10/Temp > 100.7 F Last Admin: 10/18/20 08:16 Dose: 650 mg Documented by: Albuterol Sulfate (Albuterol 2.5 Mg/3 Ml Vial.Neb.) 2.5 mg INHALATION Q4H PRN PRN Reason: SOB &/OR WHEEZING Atorvastatin Calcium (Atorvastatin Calcium 20 Mg Tablet) 20 mg PO DAILY@2200 JOHN Last Admin: 10/17/20 22:02 Dose: 20 mg Documented by: Dexamethasone (Dexamethasone 4 Mg Tablet) 6 mg PO DAILY [facility] Last Admin: 10/18/20 08:16 Dose: 6 mg Documented by: Enoxaparin Sodium (Enoxaparin 40 Mg/0.4 Ml Syringe) 40 mg SC DAILY [facility] Last Admin: 10/18/20 08:17 Dose: 40 mg Documented by: Ferrous Sulfate (Ferrous Sulfate 325 Mg Tablet) 325 mg PO BID@1200,1700 [facility] Last Admin: 10/18/20 08:17 Dose: 325 mg Documented by: Sodium Chloride () 250 mls @ 15 mls/hr IV .[id number] PRN PRN Reason: Saline Flush Remdesivir 100 mg/ Sodium (Chloride) 250 mls @ 125 mls/hr IV DAILY [facility]; Protocol Stop: 10/18/20 11:59 Last Admin: 10/18/20 09:33 Dose: 120 mls/hr Documented by: Insulin Glargine (Insulin Glargine 100 Units/Ml Pen) 50 units SC QHS [facility] Last Admin: 10/17/20 22:02 Dose: 50 units Documented by: Insulin Human Lispro (Insulin Lispro 100 Unit/Ml Insuln.Pen) 0 unit SC ACHS [facility]; Protocol Last Admin: 10/18/20 08:14 Dose: 1 u Documented by: Insulin Human Lispro (Insulin Lispro 100 Unit/Ml Insuln.Pen) 18 unit SC TIDCM [facility] Last Admin: 10/18/20 08:14 Dose: 18 u Documented by: Lisinopril (Lisinopril 40 Mg Tablet) 40 mg PO DAILY [facility] Last Admin: 10/18/20 08:16 Dose: 40 mg Documented by: Melatonin (Melatonin 3 Mg Tablet) 3 mg PO QHS PRN PRN PRN Reason: INSOMNIA Last Admin: 10/17/20 22:02 Dose: 3 mg Documented by: Ondansetron HCl (Ondansetron 4 Mg/2 Ml Vial) 4 mg IV Q8H PRN PRN PRN Reason: NAUSEA/VOMITING Oxybutynin Chloride (Oxybutynin 5 Mg Tablet) 5 mg PO BID [facility] Last Admin: 10/18/20 08:17 Dose: 5 mg Documented by: Pantoprazole Sodium (Pantoprazole Sodium 40 Mg Tablet) 40 mg PO DAILY [facility] Last Admin: 10/18/20 08:15 Dose: 40 mg Documented by: Senna/Docusate Sodium (Senna/Docusate Sodium 1 Tablet) 2 tablet PO BID PRN PRN PRN Reason: Constipation Sodium Chloride (0.9% Saline Lock 10 Ml Syringe) 10 - 40 ml IV UD PRN PRN Reason: SALINE FLUSH Last Admin: 10/18/20 09:33 Dose: 10 ml Documented by: Sodium Chloride (Sodium Chloride 0.65% 1 [place].Btl) 2 spray NASAL BID PRN PRN PRN Reason: NASAL DRYNESS Last Admin: 10/16/20 15:40 Dose: 2 spray Documented by: Throat Lozenges (Benzocaine/Menthol 1 Lozenge) 1 lozenge MUCOUS MEM Q2H PRN PRN PRN Reason: SORE THROAT Last Admin: 10/18/20 08:17 Dose: 1 lozenge Documented by: Discharge Activity: May Not Drive Call your doctor if you observe: Fever of 101 or Higher, Numbness or Tingling, Inability to urinate, Inability to have a bowel movement, Using more than one pad per hour, Shortness of breath, Dizziness, Fainting spells, Swelling in the ankles, Chest pain, Prolonged hiccoughing, Increased palpitations (irregular heartbeat), Calf discomfort, Uncontrolled pain Home Medications: Medications to take at Discharge Lisinopril [Zestril] 40 mg PO DAILY 07/27/20 Oxybutynin [Ditropan] 5 mg PO BID 07/27/20 Pantoprazole Sodium [Protonix] 40 mg PO DAILY 07/27/20 Atorvastatin Calcium [Lipitor] 20 mg PO DAILY 10/05/20 Ferrous Sulfate 325 mg PO BID 10/14/20 Dexamethasone 6 mg PO DAILY #5 tablet 10/18/20 Guaifenesin/Pseudoephedrne HCl [Mucinex D ER 1,200-120 mg Tab] 1 each PO BID #14 tab.er.12h 10/18/20 Insulin Glargine [Lantus SoloStar Pen] 50 units SC QHS #1 pen 10/18/20 Insulin Lispro [Humalog KwikPen] 15 unit SC TIDCM #1 insuln.pen 10/18/20 Insulin Lispro [Humalog KwikPen] See Protocol SC ACHS insuln.pen 10/18/20 Sodium Chloride 0.65% [[place] Nasal [place]] 2 spray NASAL BID PRN PRN spray.btl 10/18/20 Following Prescriptions Were Given to Patient: Dexamethasone 6 mg PO DAILY #5 tablet Transmission Status: Received by RACHEL ROSENTHAL RD Insulin Lispro [Humalog KwikPen] 15 unit SC TIDCM #1 insuln.pen Transmission Status: Received by RACHEL ROSENTHAL RD Insulin Glargine [Lantus SoloStar Pen] 50 units SC QHS #1 pen Transmission Status: Received by RACHEL ROSENTHAL RD Guaifenesin/Pseudoephedrne HCl [Mucinex D ER 1,200-120 mg Tab] 1 each PO BID #14 tab.er.12h Transmission Status: Received by RACHEL ROSENTHAL RD Primary Care Physician: Care Physician,No Primary [Primary Care Provider] - Please follow up with your Primary Care Physician in: In 2 weeks Please Follow Up With: Beto Wong, DO When: In 2 weeks with Jackie Diggs NP; on home oxygen, covid Medical Necessity - Tobacco Use Smoking Status: Former smoker Tobacco Use: Cigarettes Meaningful Use Info Meaningful Use Diagnoses (Choose all that apply): None applicable Inpatient E&M: 02810 Disch Hosp
--- NOTE | 2020-10-18 14:02 | CASEMGMT ---
[facility] palliative screening tool completed as pt is a strata 3 but pt does not meet palliative criteria at this time. SStjane BOND CM
--- NOTE | 2020-10-18 14:20 | PHA.DC.MC ---
Pharmacy Service has performed discharge medication reconciliation and counseling for this patient. 1. DEXAMETHASONE 6MG PO DAILY X 5 DAYS 2. MUCINEX-D 1T PO BID X 7 DAYS 3. NASAL SPRAY 2 SPRAYS BID PRN NASAL DRYNESS The patient's discharge medication list was reviewed for discrepancies and discrepancies were resolved. Patient counseled via telephone due to COVID precautions Home Medications Lisinopril [Zestril] 40 mg PO DAILY 07/27/20 Oxybutynin [Ditropan] 5 mg PO BID 07/27/20 Pantoprazole Sodium [Protonix] 40 mg PO DAILY 07/27/20 Atorvastatin Calcium [Lipitor] 20 mg PO DAILY 10/05/20 Ferrous Sulfate 325 mg PO BID 10/14/20 Dexamethasone 6 mg PO DAILY #5 tablet 10/18/20 Guaifenesin/Pseudoephedrne HCl [Mucinex D ER 1,200-120 mg Tab] 1 each PO BID #14 tab.er.12h 10/18/20 Insulin Glargine [Lantus SoloStar Pen] 50 units SC QHS #1 pen 10/18/20 Insulin Lispro [Humalog KwikPen] 15 unit SC TIDCM #1 insuln.pen 10/18/20 Insulin Lispro [Humalog KwikPen] See Protocol SC ACHS insuln.pen 10/18/20 Sodium Chloride 0.65% [[place] Nasal [place]] 2 spray NASAL BID PRN PRN spray.btl 10/18/20 The patient was counseled on the following discharge medications and changes in medications for homegoing were reviewed. The Reason for Use, instructions for use, and potential side effects were reviewed for all new medications. The patient's questions regarding all of their medications were answered. The patient was able to verbally demonstrate an understanding of their discharge medications.
[2020-10-18 14:26] LABS: Bedside Glucose 344 mg/dL (70-110)
[2020-10-18 17:35] LABS: Bedside Glucose 332 mg/dL (70-110)
--- NOTE | 2020-10-18 17:36 | NURSING ---
Spoke to Jessenia at [employer] regarding the need for portable tank and to check status of delivery. Jessenia states that a physician's note stating the need for home oxygen needs faxed. Faxed DC summary to company.
--- NOTE | 2020-10-18 18:19 | MDS.RN ---
Spoke to Ana Laura at [employer] which she works in the answering department at 1819 for an update on the O2 delivery. She can't get a hold of the airport driver and said they will have to call us back. I have her our nurses station number.
--- NOTE | 2020-10-18 18:57 | NURSING ---
Called [employer] again trying to get a updated on the O2 delivery. The answering knew who I was calling about and said once again she is just the answering service and the message was sent to the petroleum transport driver. I asked for her name so I could pass it on to charge nurse and she hung up on me.
[2020-10-18] MEDS: Atorvastatin Calcium 20 MG Tablet PO (22:22)
[2020-10-19 00:26] LABS: Bedside Glucose 367 mg/dL (70-110)
[2020-10-19 12:20] LABS: SAR-COV-2 IGM ANTIBODY Positive (Negative)
--- NOTE | 2020-10-19 14:07 | CASEMGMT ---
RONDA DELGADO Discharge Follow-Up Phone Call. Lisa: Ignacia Strata: 3 Discharge Date: 10/18/20 Adm Dx: Acute Hypoxic Resp Failure secondary to multi-focal pneumonia + COVID Call to pt to inquire about how she has been doing since being discharged from the hospital. Pt states she is feeling very tired and is still having some SOB. She states it has not worsened--just not noticing a change w/it. She states the oxygen was delivered to her home last evening and she has been wearing it @ 3 L/m continuously. She states she does not have a pulse ox. RONDA DELGADO recommended pt get one to monitor oxygen levels and parameters given for when to f/u with MD or to return to hospital if symptoms worsen. Pt states she has still not established w/a PCP yet, but knows she needs to do this. She is aware of the appt w/pulmonology on 11/02. She states she did get all of the new prescriptions and denies having any questions about any of her medications. She denies having any questions/needs/concerns and thanked RONDA DELGADO for calling. Patricia ADAMES RN, CM
== END 2020-10-18 22:00 | disposition home or self-care (01) | DRG 137 ==
LOC: ED 10:18 → ICU 14:05 → PCU 10-17 07:40
PROVIDERS: Internal Medicine Infectious Disease; Admitting Provider Internal Medicine; Emergency Provider Emergency Medicine; Visit Provider Internal Medicine
DX: U07.1 COVID-19 (principal); J12.82 Pneumonia due to coronavirus disease 2019; J96.01 Acute respiratory failure with hypoxia; E87.2 Acidosis; E86.0 Dehydration; E87.6 Hypokalemia; E87.8 Other disorders of electrolyte and fluid balance, not elsewhere classified; E07.81 Sick-euthyroid syndrome; E10.9 Type 1 diabetes mellitus without complications; I10 Essential (primary) hypertension; E78.5 Hyperlipidemia, unspecified; R32 Unspecified urinary incontinence; K21.9 Gastro-esophageal reflux disease without esophagitis; Z79.4 Long term (current) use of insulin; Z79.899 Other long term (current) drug therapy; Z87.891 Personal history of nicotine dependence
CPT/HCPCS: 36415; 71045; 71275; 80053; 81001; 82962; 83605; 83735; 84075; 84100; 84439; 84443; 85025; 85379; 85610; 85730; 86769; 87040; 87086; 87088; 87449; 87633; 87635; 87641; 99251; 99285; J7030; J7050; Q9967; A4216; G0463; J0696; J2405; U0002

== ENCOUNTER → 2020-11-17 10:57 | Outpatient (CLI) | payer MEDICAID, SELFPAY ==
[2020-11-02 06:04] VITALS: BMI 30.1
--- NOTE | 2020-11-17 13:26 | PFT ---
INTRODUCTION: The patient is a 50-year-old female that presents for pulmonary function studies secondary to a diagnosis of Covid. Respiratory therapy reports good patient effort. Bronchodilators were used during testing. INTERPRETATION: Forced expiration spirometry demonstrates no evidence of a large airways obstructive ventilatory defect. There was no significant response to aerosolized bronchodilators. Spirograms are of good quality and plateau normally. Body plethysmography was performed and reveals lung volumes to be within normal limits. Diffusing capacity by single breath CO is at the lower limits of normal. IMPRESSION: Grossly normal pulmonary function studies with diffusing capacity at the lower limits of normal.
== END ==
PROVIDERS: Referring Provider Internal Medicine Critical Care Medicine; Visit Provider Internal Medicine Critical Care Medicine
DX: J96.01 Acute respiratory failure with hypoxia (principal); Z86.16 Personal history of COVID-19
CPT/HCPCS: 94060; 94726; 94729

== ENCOUNTER → 2020-11-22 08:11 | Outpatient (CLI) | payer MEDICAID, SELFPAY ==
[2020-11-02 06:04] VITALS: BMI 30.1
[2020-11-22 09:17] VITALS: PULSE 102; PULSE 103; PULSE 109; PULSE 86; PULSE 91; PULSE 96; O2SAT 94; O2SAT 95; O2SAT 96
--- NOTE | 2020-11-22 09:19 | CPS ---
Patient came in on 3L NC but did not require O2 throughout the 6 min walk.
--- NOTE | 2020-11-22 10:12 | PCM.PSN.6M ---
PSN 6 Minute Walk Test 6 Minute Walk Test 6 Minute Walk Test: 6 Minute Walk Test PSN:6-Minute Walk Test Start: 11/22/20 09:10 Freq: Status: Active Protocol: [id number] Document 11/22/20 09:17 AMAYA (Rec: 11/22/20 09:20 AMAYA [id number]) 6 Minute Walk Test Date Performed 11/22/20 Time Performed 08:30 Height 5 ft 3 in Weight: 77.467 kg Weight in Pounds 170.8 lbs Assistive device used: None Pre-test Oxygen Delivery Method Room Air Pulse Ox (%) 96 Pulse Rate (60-100 beats/min) 86 Dyspnea Kim Scale (0-10) 0.5 Exertion Kim Scale (6-20) 6 1st minute Oxygen Delivery Method Room Air Pulse Ox (%) 95 Pulse Rate (60-100 beats/min) 96 2nd minute Oxygen Delivery Method Room Air Pulse Ox (%) 95 Pulse Rate (60-100 beats/min) 102 H 3rd minute Oxygen Delivery Method Room Air Pulse Ox (%) 96 Pulse Rate (60-100 beats/min) 102 H 4th minute Oxygen Delivery Method Room Air Pulse Ox (%) 95 Pulse Rate (60-100 beats/min) 102 H 5th minute Oxygen Delivery Method Room Air Pulse Ox (%) 94 Pulse Rate (60-100 beats/min) 109 H 6th minute Oxygen Delivery Method Room Air Pulse Ox (%) 95 Pulse Rate (60-100 beats/min) 103 H Dyspnea Kim Scale (0-10) 0.5 Exertion Kim Scale (6-20) 11 Post-test Oxygen Delivery Method Room Air Pulse Ox (%) 96 Pulse Rate (60-100 beats/min) 91 Full Laps Walked 16 Partial Lap, Number of Tiles Walked 0 Total Distance Walked (ft) 944 11/22/20 09:19 Cardiopulmonary Services by Johanne Bah Patient came in on 3L NC but did not require O2 throughout the 6 min walk. Initialized on 11/22/20 09:19 - END OF NOTE Interpretation Interpretation: The patient was able to ambulate 944 feet over the course of 6 minutes on room air with no assistive devices or breaks. The patient experienced no significant desaturation, but did have a peak heart rate of 109 bpm. These findings are consistent with deconditioning. Recommendations Recommendations: No supplemental oxygen is indicated at this time. It is okay to discontinue oxygen given the results of this test.
== END ==
PROVIDERS: Referring Provider Internal Medicine Critical Care Medicine; Visit Provider Internal Medicine Critical Care Medicine
DX: J96.01 Acute respiratory failure with hypoxia (principal); Z86.16 Personal history of COVID-19
CPT/HCPCS: 94618

== ENCOUNTER → 2020-12-20 11:57 | Outpatient (CLI) | payer MEDICAID, SELFPAY ==
[2020-11-02 06:04] VITALS: BMI 30.1
[2020-12-20 12:45] LABS: Hematocrit 34.4 % (37-47); Hemoglobin 11.5 g/dL (12.0-15.0); Mean Corp Hgb Conc 33.4 g/dL (32-36); Mean Corpuscular Volume 92.7 fL (81-99); Platelet Count 373 K/mm3 (150-450); RBC Distribution Width CV 13.6 % (11.6-14.6); RBC Distribution Width SD 46.6 fl (35.1-43.9); Red Blood Count 3.71 M/mm3 (4.2-5.4); White Blood Count 8.7 K/mm3 (4.4-11.0)
[2020-12-20 13:26] LABS: Anion Gap 7 (5-15); BUN 15 mg/dL (7-18); BUN/Creat Ratio 23.5 RATIO (10-20); Calcium,Total 8.8 mg/dL (8.5-10.1); Chloride 110 mmol/L (98-107); Creatinine, Serum 0.64 mg/dL (0.55-1.02); EST Glomerular Filtration Rate 105 mL/min (>60); Est Glom Filt Rate - Afr Amer 127 mL/min (>60); Estradiol 49.2 pg/mL; Follicle Stimulating Hormone 29.5 mIU/mL; Glucose 115 mg/dL (74-106); Luteinizing Hormone 9.9 mIU/mL; Potassium 3.9 mmol/L (3.5-5.1); Prolactin 6.5 ng/mL; Sodium Level 141 mmol/L (136-145); T4 Free Direct 0.97 ng/dL (0.76-1.46); Thyroid Stim Hormone (TSH) 0.46 uIU/mL (0.358-3.74)
[2020-12-20 14:03] LABS: HIV - WCH Non-Reactive (Nonreactive); Hepatitis B Surface Antigen Non-Reactive (Nonreactive); Hepatitis C Antibody Non-Reactive (Nonreactive); Syphilis Antibodies Non-reactive
[2020-12-21 20:08] LABS: Chlamydia By Nucleic Acid AMP Negative (Negative)
[2020-12-21 22:24] LABS: Gonococcus By Nucleic Acid AMP Negative (Negative)
[2020-12-25 10:46] LABS: HPV APTIMA, High Risk Negative (Negative)
== END ==
PROVIDERS: Visit Provider Obstetrics & Gynecology
DX: Z12.4 Encounter for screening for malignant neoplasm of cervix (principal); N93.9 Abnormal uterine and vaginal bleeding, unspecified; Z11.3 Encounter for screening for infections with a predominantly sexual mode of transmission
CPT/HCPCS: 36415; 80048; 82670; 83001; 83002; 84146; 84439; 84443; 85027; 86703; 86780; 86803; 87340; 87491; 87591; 87624; 88175; G0145

== ENCOUNTER → 2021-02-21 12:52 | Outpatient (CLI) | payer MEDICAID, SELFPAY ==
[2020-11-02 06:04] VITALS: BMI 30.1
--- NOTE | 2021-02-21 12:55 | CT_ITS ---
STUDY: CT CHEST WITHOUT CONTRAST REASON FOR EXAM: Female, 50 years old. Follow up resp failure after COVID 19 RADIATION DOSAGE (If Supplied By Facility): CTDIvol = ( 9.67 ) mGy, DLP = ( 340.75 ) mGycm TECHNIQUE: Transaxial imaging was performed without the administration of intravenous contrast material. Multiplanar coronal and sagittal images were reformatted. Individualized dose optimization techniques were used for this CT. COMPARISON: Comparison is made with prior examination dated 10/14/2020. FINDINGS: There is a 1.5 cm x 2 cm cystic nodule in the left lobe of the thyroid. A similar appearing nodule measuring 8 mm is seen in the right lobe. Stable small benign-appearing bilateral axillary lymph nodes. The lungs are normal. There is no demonstrated pleural abnormality. Normal heart and pericardium. Normal mediastinum. Normal hilar regions. Normal unenhanced pulmonary arteries. Normal aorta arch and descending thoracic aorta. Normal osseous structures. There is no demonstrated abnormality of the visualized upper abdomen. CT/Chest without Contrast IMPRESSION: The previously seen bilateral patchy infiltrates have resolved. Electronically Signed: Bhavin Avila MD at 14:16 EDT , Service support ,
== END ==
PROVIDERS: Referring Provider Internal Medicine Critical Care Medicine; Visit Provider Internal Medicine Critical Care Medicine
DX: J96.01 Acute respiratory failure with hypoxia (principal); Z86.16 Personal history of COVID-19
CPT/HCPCS: 71250

== ENCOUNTER → 2021-03-13 15:49 | Outpatient (CLI) | payer MEDICAID, SELFPAY ==
--- NOTE | 2021-03-13 15:50 | US_ITS ---
STUDY: THYROID ULTRASOUND REASON FOR EXAM: Female, 50 years old. left thyroid TECHNIQUE: Ultrasound evaluation of the thyroid was performed with real-time and static devlin-scale imaging. COMPARISON: None. FINDINGS: RIGHT LOBE: The right lobe of the thyroid gland measures 5.8 x 2.0 x 1.7 cm. There is a homogeneous echotexture. There are 2 nodules of the right thyroid lobe. 1. 1.4 x 1.7 x 1.0 cm nodule. This nodule is solid or almost completely solid, hypoechoic, [id number], smoothly marginated and contains no echogenic foci. TI-RADS points: 4. TI-RADS category: TR4. This nodule is moderately suspicious. Recommend follow-up thyroid ultrasounds at 1, 2, 3 and 5 years. 2. 1.0 x 0.5 x 0.4 cm nodule. This nodule is mixed cystic and solid, hypoechoic, [id number], smoothly marginated and contains no echogenic foci. TI-RADS points: 3. TI-RADS category: TR3. This nodule is mildly suspicious but no FNA or follow-up is necessary given the small size of this nodule. LEFT LOBE: The left lobe of the thyroid gland measures 5.5 x 2.3 x 2.4 cm. There is a homogeneous echotexture. Solitary nodule left thyroid lobe. 1. 2.6 x 1.7 x 1.7 cm nodule. This nodule is solid or almost completely solid, hypoechoic, [id number]-[id number], smoothly marginated and contains no echogenic foci. TI-RADS points: 4. TI-RADS category: TR4. This nodule is moderately suspicious. Recommend FNA evaluation. ISTHMUS: The isthmus measures 2.0 mm. Single, cystic and solid nodule of the isthmus measures 6 mm. This nodule is mixed cystic and solid, hypoechoic, [id number], smoothly marginated and contains no echogenic foci. TI-RADS points: 3. TI-RADS category: TR3. This nodule is mildly suspicious but no FNA or follow-up is necessary given the small size of this nodule. The regional lymph nodes are normal. US/Thyroid IMPRESSION: 1. Multinodular thyroid gland. FNA sampling recommended of left thyroid lobe nodule, as above. Additional follow-up thyroid ultrasound in one year, also detailed above. Electronically Signed: Torres Arshad MD ([place]) at 12:29 EDT , Service support ,
== END ==
PROVIDERS: PCP Internal Medicine; Referring Provider Nurse Practitioner Family; Visit Provider Nurse Practitioner Family
DX: E04.1 Nontoxic single thyroid nodule (principal)
CPT/HCPCS: 76536

== ENCOUNTER → 2021-03-21 | Outpatient (CLI) | payer MEDICAID, SELFPAY ==
--- NOTE | 2021-03-21 09:15 | FLU_PTH ---
PATIENT: HILARIO ROMERO LOC: [facility] U#:[id number] AGE/SX: 50/F ROOM: RE03/21/[address]: Dr. Neal Jimenes MD : 1970 BED: DIS: 03/21/2021 SPEC #: [id number] RECD: 03/21/21 13:40 STATUS: JAQUELINE NÉSTOR #: [id number] BRIDGETTE: 03/21/21 09:[address]: Neal Jimenes DEPT: CYTOLOGY RECD BY: Jane Merino ENTERED: 03/22/21 11:14 SP TYPE: Fluid OTHR DR: Dr. Cleveland Qiu MD Tissues: A - Thyroid gland, NOS B - Thyroid gland, NOS C - Thyroid gland, NOS D - Thyroid gland, NOS E - Thyroid gland, NOS Procedures: Special Stain Group II Surgery Specimen Level IV Cytospin Fluid Cytology Other HEADER OPERATION: Ultrasound-guided fine needle aspiration bilateral thyroid PRE-OP DIAGNOSIS: Multinodular goiter TISSUE SUBMITTED: A - Right thyroid fluid, B - Right thyroid x4 slides, C - Left thyroid fluid, D - Left thyroid fluid, E - Left thyroid x4 slides DIAGNOSIS CYTOLOGY A. Right thyroid nodule fluid, ultrasound-guided FNA (cytospin and cell block): Acellular specimen. B. Right thyroid nodule, ultrasound-guided FNA (smears): Nondiagnostic specimen due to lack of follicular cells. See comment. C. Left thyroid nodule fluid, ultrasound-guided FNA (cytospin and cell block): Consistent with cyst contents. See comment. D. Left thyroid nodule fluid, ultrasound-guided FNA (cytospin and cell block): Consistent with benign follicular nodule with cystic changes. Adequate for evaluation. E. Left thyroid nodule, ultrasound-guided FNA (smears): Consistent with benign follicular nodule. Adequate for evaluation. SJ:nidhi 03/23/2021 COMMENT B. The specimen shows rare macrophages. C. The specimen predominantly consists of macrophages. Correlation with clinical, radiologic findings and appropriate follow up are necessary. Case has been reviewed in consultation with Dr. Kay who concurs with the above diagnosis. IDC:AM CYTOLOGY STUDY Slides are reviewed. CYTOLOGY GROSS A - Received is 15 ml of pink Cytolyt with particles labeled with the patient's name and and designated per the requisition as right thyroid. Submitted for cytology preparation including cell block. B - Received are four smears labeled with the patient's name and designated per the requisition as right thyroid. Submitted for staining. C - Received is 2.5 ml of dark red cloudy fluid labeled with the patient's name and and designated per the requisition as left thyroid. Submitted for cytology preparation including cell block. D - Received is 20 ml of pink Cytolyt with particles labeled with the patient's name and and designated per the requisition as left thyroid. Submitted for cytology preparation including cell block. E - Received are four smears labeled with the patient's name and designated per the requisition as left thyroid. Submitted for staining. / nidhi 03/22/2021 TC:5 CPT: 40925 x3, 17199 x3, 83566 x2
== END | disposition home or self-care (01) ==
LOC: LABSPEC 13:45
PROVIDERS: PCP Internal Medicine; Referring Provider Surgery; Visit Provider Surgery
DX: E04.2 Nontoxic multinodular goiter (principal)
CPT/HCPCS: 88108; 88161; 88305; 88313

== ENCOUNTER → 2021-05-15 11:38 | Outpatient (CLI) | payer MEDICAID, SELFPAY ==
[2021-05-15 15:02] LABS: Absolute Lymphocyte Count 2.28 X10^3/uL (0.83-4.51); Absolute Neutrophil Count 7.1 X10^3/uL (2.0-7.7); Basophil# 0.07 X10^3/uL; Basophil% 0.7 % (0-1); Eosinophil# 0.23 X10^3/uL; Eosinophils% 2.2 % (0-5); Hematocrit 39.2 % (37-47); Hemoglobin 12.9 g/dL (12.0-15.0); Lymphocyte # 2.28 X10^3/ul (0.83-4.51); Lymphocyte % 21.8 % (19-41); Mean Corp Hgb Conc 32.9 g/dL (32-36); Mean Corpuscular Hgb 30.6 pg (27.0-32.0); Mean Corpuscular Volume 92.9 fL (81-99); Mean Platelet Vol. 11.4 fl (6.2-12.0); Monocyte# 0.65 X10^3/uL; Monocyte% 6.2 % (0-10); NRBC Flagged by Analyzer 0 % (0-5); Neutrophil # 7.13 X10^3/uL (2.7-7.7); Neutrophil % 68.3 % (47-70); Platelet Count 324 K/mm3 (150-450); RBC Distribution Width CV 13.2 % (11.6-14.6); RBC Distribution Width SD 45.1 fl (35.1-43.9); Red Blood Count 4.22 M/mm3 (4.2-5.4); White Blood Count 10.4 K/mm3 (4.4-11.0)
[2021-05-15 15:29] LABS: AST(SGOT) 4 U/L (15-37); Alanine Aminotransfer ALT/SGPT 19 U/L (13-56); Albumin, Serum 3.6 g/dL (3.2-5.0); Alkaline Phosphatase 68 U/L (45-117); Anion Gap 5 (5-15); BUN 12 mg/dL (7-18); BUN/Creat Ratio 18.2 RATIO (10-20); Chloride 108 mmol/L (98-107); Cholesterol 147 mg/dL (200); Creatinine, Serum 0.66 mg/dL (0.55-1.02); EST Glomerular Filtration Rate 101 mL/min (>60); Est Glom Filt Rate - Afr Amer 122 mL/min (>60); Globulin 3.6 g/dL (2.2-4.2); Glucose 153 mg/dL (74-106); High Density Lipoprotein 64 mg/dL; Potassium 3.8 mmol/L (3.5-5.1); Protein, Total 7.2 g/dL (6.4-8.2); Sodium Level 138 mmol/L (136-145); Triglycerides 93 mg/dL; Very Low Density Lipoprotein 19 mg/dL (5-40)
[2021-05-15 15:39] LABS: Microalbumin,Random Urine 15.3 mg/L (NO RANGE EST.); Microalbumin:Creatinine Ratio 46.8 mg/g CRE (<30 mg/g CRE)
[2021-05-15 15:42] LABS: Hemoglobin A1c 8.2 % (3.8-5.6)
== END ==
PROVIDERS: PCP Internal Medicine; Referring Provider Internal Medicine; Visit Provider Internal Medicine
DX: I10 Essential (primary) hypertension (principal); E11.9 Type 2 diabetes mellitus without complications; Z79.4 Long term (current) use of insulin; Z86.39 Personal history of other endocrine, nutritional and metabolic disease
CPT/HCPCS: 36415; 80053; 80061; 82043; 82570; 83036; 85025

== ENCOUNTER 2022-05-22 18:58 | Emergency (ER) | payer MEDICAID, SELFPAY ==
[2022-05-22 18:59] VITALS: BP 119/83; PULSE 82; RESP 14; TEMP 36.2; O2SAT 96; BMI 29.8
--- NOTE | 2022-05-22 20:35 | EDS_ITS ---
HPI History of Present Illness Chief Complaint: Hypoglycemia Detail of Chief Complaint: Low blood sugar Informant: patient Narrative Narrative: Patient presents the emergency department complaint of low blood sugar for the last 2 days. Patient states that she started Ozempic weekly injections to try to decrease the amount of insulin that she requires. She still taking 35 units of the Lantus at night and she is taking now 6 units after meals of the regular insulin instead of the 10 units that she had been taking. Patient's blood sugar has gotten as low as the mid 60s. When this happens she feels somewhat shaky and confused. Patient has been complaining of some fatigue over the last couple of days. She denies fever or recent illness. She denies urinary symptoms. Patient states that she took a glucose tablet prior to coming in. On arrival to the ER her blood sugar was 99. PFSH [facility] Medical History (Updated 05/22/22 @ 22:[address] Ramone Tse, DO) Colon cancer screening History of drug abuse in remission History of hypercholesterolemia History of hypertension History of tobacco abuse History of type 1 diabetes mellitus Hypertension Thyroid nodule Home Medications sodium chloride 0.65 % nasal spray aerosol 2 spray NASAL BID PRN PRN NASAL DRYNESS 10/18/20 [Rx Last Taken Unknown] albuterol sulfate 90 mcg/actuation aerosol inhaler (Ventolin HFA) 2 puff inhalation Q4H PRN shortness of breath or wheezing #18 grams 02/27/21 [Rx Last Taken Unknown] fluticasone propionate 50 mcg/actuation nasal spray,suspension 2 spray intranasal DAILY #16 grams 02/27/21 [Rx Last Taken Unknown] levonorgestrel 20.1 mcg/24 hrs (6 yrs) 52 mg intrauterine device (Liletta) 1 device intrauterine ONCE 05/15/21 [History Last Taken Unknown] amlodipine 5 mg tablet 5 mg PO DAILY #90 tabs 09/25/21 [Rx Last Taken Unknown] atorvastatin 20 mg tablet 20 mg PO DAILY CHOLESTEROL #90 tabs 09/25/21 [Rx Last Taken Unknown] ferrous sulfate 325 mg (65 mg iron) tablet 325 mg PO BID SUPPLEMENT #180 tabs 09/25/21 [Rx Last Taken Unknown] insulin glargine 100 unit/mL (3 mL) subcutaneous pen 35 unit subcut QHS DM 09/25/21 [History Last Taken Unknown] insulin lispro 100 unit/mL subcutaneous pen 10 unit subcut TIDCM 09/25/21 [History Last Taken Unknown] lisinopril 40 mg tablet 40 mg PO DAILY BP #90 tabs 09/25/21 [Rx Last Taken Unknown] oxybutynin chloride 5 mg tablet 5 mg PO BID BLADDER #180 tabs 09/25/21 [Rx Last Taken Unknown] pantoprazole 40 mg tablet,delayed release 40 mg PO DAILY GERD #90 tabs 09/25/21 [Rx Last Taken Unknown] Allergy/AdvReac Type Severity Reaction Status Date / Time No Known Allergies Allergy Verified 05/22/22 20:27 Family History Other Adopted Social History adopted: Yes Smoking Status: Former smoker quit date: 07/01/19 pack-years: 35 alcohol intake: former substance use type: former substance user what type of physical activity do you participate in: none ROS ROS ED ROS Narrative Confusion, shaky, hypoglycemia Review of Systems ROS Unobtainable: other Constitutional Constitutional ED: Reports lethargy; Denies chills, fever(s), sweats or weight loss Eyes Eyes: Denies blurry vision, change in vision or diplopia ENT ENT ED: Denies rhinorrhea or sore throat Cardiovascular Cardiovascular: Denies chest pain, orthopnea or racing heartbeat Respiratory/Chest Respiratory/Chest: Denies cough, dyspnea, dyspnea on exertion, orthopnea or sputum Gastrointestinal Gastrointestinal: Denies abdominal pain, diarrhea, nausea or vomiting Genitourinary Genitourinary ED: Denies dysuria, hematuria or urinary frequency Musculoskeletal Musculoskeletal: Denies arthralgias, back pain, myalgias or neck pain Integumentary Denies abscess, Abrasions or rash Neurologic Neurologic: Denies headache(s) or weakness Psychiatric Psychiatric: Denies anxiety, depression or suicidal thoughts Endocrine Endocrinology: Denies polydipsia, polyphagia or polyuria Hematologic/Lymphatic Hematologic/Lymphatic: Denies easy bleeding, easy bruising or lymphadenopathy Allergic/Immunologic Allergic/Immunologic ED: Denies mouth swelling, tongue swelling or urticaria EXAM Physical Exam Const Vital Signs: 05/22/22 18:59 05/22/22 20:27 05/22/22 22:03 Temperature 97.2 F L Temperature Source Temporal Pulse Rate 82 Respiratory Rate 14 18 Respiratory Effort Normal Non-Labored Respiratory Pattern Normal Blood Pressure 119/83 H Blood Pressure Mean 95 Pulse Ox 96 Oxygen Delivery Method Room Air Room Air Positive well nourished and well developed General Appearance ED: well developed and NAD HEENT Reports TM's clear and moist mucous membranes normocephalic and atraumatic; Negative for trauma or tenderness Tympanic Membrane ED: Yes TM's clear Eyes PERRL and EOMs intact bilaterally General Eye ED: Negative for pale conjunctiva or scleral icterus Neck no lymphadenopathy, supple and no JVD General: Negative for tenderness Chest Wall inspection of chest normal and palpation of chest normal Chest: Negative for tenderness Resp normal respiratory effort and clear to auscultation bilaterally Effort and Inspection: Negative for respiratory distress or pain with movement Auscultation: Negative for rhonchi, wheezes or diminished lung sounds Cardio regular rate, regular rhythm, S1 normal heart sound, S2 normal heart sound and no murmurs Peripheral Pulses: pulses 2+ throughout GI normal to inspection, nondistended, normoactive bowel sounds, soft to palpation, non-tender, non-distended and no masses Back/Spine no CVA tenderness and no thoracic nor lumbar tenderness Extremity normal to inspection General Extremety ED: Negative for edema General Extremity: Negative for edema Neuro oriented x3, CN's II-XII intact bilaterally, no sensory deficits noted and gait normal Sensorium / Orientation: awake, alert, oriented to person, oriented to place and oriented to time Motor Exam: strength 5/5 throughout and strength abnormal Psych mental status grossly normal Skin no rashes or lesions noted and no wounds MDM MDM MDM Narrative Medical decision making narrative: IV line established on arrival. Patient had a CBC that showed a white count 12.6. Chemistries unremarkable. LFTs were normal. Urinalysis was normal. COVID-19 testing was negative. At this point I suspect her hypoglycemia is likely related to the recent changes in her medication made by her promotions executive producer. I did advise for tonight at least only take 20 units of the Lantus and call her promotions executive producer in the morning to see if further adjustments in her medications are warranted. Patient comfortable with plan. Lab Data Attestation: I reviewed the patient's lab results. Labs: Laboratory Results - last 24 hr 05/22/22 05/22/22 05/22/22 20:25 20:44 20:44 WBC 12.6 H RBC 4.52 Hgb 13.9 Hct 42.0 MCV 92.9 MCH 30.8 MCHC 33.1 RDW Std Deviation 41.9 RDW Coeff of Jv 12.1 Plt Count 306 MPV 11.2 Immature Gran % (Auto) 0.400 Neut % (Auto) 65.6 Lymph % (Auto) 24.7 [place] % (Auto) 6.9 Eos % (Auto) 1.9 Baso % (Auto) 0.5 Absolute Neuts (auto) 8.3 H Absolute Lymphs (auto) 3.10 Nucleated RBC % 0 Sodium 144 Potassium 3.9 Chloride 109 H Carbon Dioxide 31.0 Anion Gap 4 L BUN 18 Creatinine 0.82 Estim Creat Clear Calc 67.90 Est GFR (MDRD) Af Amer 94 Est GFR (MDRD) Non-Af 78 BUN/Creatinine Ratio 21.9 H Glucose 101 Calcium 9.6 Total Bilirubin 0.30 AST 5 L ALT 29 Alkaline Phosphatase 74 Total Protein 7.6 Albumin 4.0 Globulin 3.6 Albumin/Globulin Ratio 1.1 Urine Color Urine Clarity Urine pH Ur Specific [place] Urine Protein Urine Glucose (UA) Urine Ketones Urine Occult Blood Urine Nitrite Urine Bilirubin Urine Urobilinogen Ur Leukocyte Esterase Urine RBC Urine WBC Ur Squamous Epith Cells Urine Bacteria Urine Mucus POC Glucose 97 05/22/22 21:24 WBC RBC Hgb Hct MCV MCH MCHC RDW Std Deviation RDW Coeff of Jv Plt Count MPV Immature Gran % (Auto) Neut % (Auto) Lymph % (Auto) [place] % (Auto) Eos % (Auto) Baso % (Auto) Absolute Neuts (auto) Absolute Lymphs (auto) Nucleated RBC % Sodium Potassium Chloride Carbon Dioxide Anion Gap BUN Creatinine Estim Creat Clear Calc Est GFR (MDRD) Af Amer Est GFR (MDRD) Non-Af BUN/Creatinine Ratio Glucose Calcium Total Bilirubin AST ALT Alkaline Phosphatase Total Protein Albumin Globulin Albumin/Globulin Ratio Urine Color Yellow Urine Clarity Clear Urine pH 6.0 Ur Specific [place] 1.020 Urine Protein Negative Urine Glucose (UA) Normal Urine Ketones Negative Urine Occult Blood Negative Urine Nitrite Negative Urine Bilirubin Negative Urine Urobilinogen Normal Ur Leukocyte Esterase 25 H Urine RBC 0-5 SEEN Urine WBC 0-5 SEEN Ur Squamous Epith Cells 0 SEEN Urine Bacteria 0 SEEN Urine Mucus 0 SEEN POC Glucose Discharge Plan Triage Chief Complaint: Hypoglycemia Other Complaint: Hyperglycemia ED Provider: Ramone Tse Dx/Rx/DC Orders Clinical Impression: Hypoglycemia Instructions: ED Diabetic Insulin Reaction Prescriptions: No Action fluticasone propionate 50 mcg/actuation spray,suspension 2 spray intranasal DAILY Qty: 16 3RF albuterol sulfate [Ventolin HFA] 90 mcg/actuation HFA aerosol inhaler 2 puff inhalation Q4H PRN (Reason: shortness of breath or wheezing) Qty: 18 6RF insulin lispro 100 unit/mL insulin pen 10 unit SC TIDCM Rx Instructions: Along with sliding scale insulin with incremental 2 units. Hold if glucose less than 130 mg/dl Liletta 20.1 mcg/24 hrs (6 yrs) 52 mg intrauterine device 1 device intrauterine ONCE Rx Instructions: as a single dose insulin glargine 100 unit/mL (3 mL) insulin pen 35 unit SC QHS amlodipine 5 mg tablet 5 mg PO DAILY Qty: 90 1RF lisinopril 40 mg tablet 40 mg PO DAILY Qty: 90 1RF atorvastatin 20 mg tablet 20 mg PO DAILY Qty: 90 1RF ferrous sulfate 325 mg (65 mg iron) tablet 325 mg PO BID Qty: 180 1RF oxybutynin chloride 5 mg tablet 5 mg PO BID Qty: 180 1RF pantoprazole 40 mg tablet,delayed release (DR/EC) 40 mg PO DAILY Qty: 90 1RF sodium chloride 1 SPRAY aerosol,spray 2 spray NASAL BID PRN PRN (Reason: NASAL DRYNESS) 0RF Primary Care Provider: Cleveland Qiu Referrals: Shira Alfaro PA [Non-Staff -Ordering Privileges] - Activity Restrictions/Additional Instructions: Call your promotions executive producer in the morning to discuss further adjustments in your medications for your diabetes. Disposition Disposition: Home, Self Care
[2022-05-22 20:51] LABS: Bedside Glucose 97 mg/dL (74-106)
[2022-05-22 20:52] LABS: Absolute Neutrophil Count 8.3 X10^3/uL (2.0-7.7); Basophil# 0.06 X10^3/uL; Basophil% 0.5 % (0-1); Eosinophil# 0.24 X10^3/uL; Eosinophils% 1.9 % (0-5); Hemoglobin 13.9 g/dL (12.0-15.0); Lymphocyte % 24.7 % (19-41); Mean Corp Hgb Conc 33.1 g/dL (32-36); Mean Corpuscular Hgb 30.8 pg (27.0-32.0); Mean Corpuscular Volume 92.9 fL (81-99); Mean Platelet Vol. 11.2 fl (6.2-12.0); Monocyte# 0.87 X10^3/uL; Monocyte% 6.9 % (0-10); NRBC Flagged by Analyzer 0 % (0-5); Neutrophil # 8.25 X10^3/uL (2.7-7.7); Neutrophil % 65.6 % (47-70); Platelet Count 306 K/mm3 (150-450); RBC Distribution Width CV 12.1 % (11.6-14.6); RBC Distribution Width SD 41.9 fl (35.1-43.9); Red Blood Count 4.52 M/mm3 (4.2-5.4); White Blood Count 12.6 K/mm3 (4.4-11.0)
[2022-05-22 21:10] LABS: ALB/GLOB Ratio 1.1 RATIO (0.9-2.4); AST(SGOT) 5 U/L (15-37); Alanine Aminotransfer ALT/SGPT 29 U/L (13-56); Alkaline Phosphatase 74 U/L (45-117); Anion Gap 4 (5-15); BUN 18 mg/dL (7-18); BUN/Creat Ratio 21.9 RATIO (10-20); Calcium,Total 9.6 mg/dL (8.5-10.1); Chloride 109 mmol/L (98-107); Creatinine, Serum 0.82 mg/dL (0.55-1.02); EST Glomerular Filtration Rate 78 mL/min (>60); Est Glom Filt Rate - Afr Amer 94 mL/min (>60); Globulin 3.6 g/dL (2.2-4.2); Glucose 101 mg/dL (74-106); Potassium 3.9 mmol/L (3.5-5.1); Protein, Total 7.6 g/dL (6.4-8.2); Sodium Level 144 mmol/L (136-145)
[2022-05-22 21:30] LABS: Bacteria 0 SEEN /hpf (None Seen); Mucous, Urine 0 SEEN /hpf (<or=2+); Squamous Epithelial Cells - UA 0 SEEN /hpf (5-10)
[2022-05-22 21:54] LABS: Color, Urine Yellow (Yellow); Glucose, Dipstick Normal (Normal); Ketone-Dipstick Negative (Negative); Leukocyte Esterase-Dipstick 25 /ul (Negative); Nitrite-Dipstick Negative (Negative); Occult Blood-Urine Negative /ul (Negative); Protein-Dipstick Negative (Negative); Urine Bilirubin Dipstick Negative (Negative); Urine Clarity Clear (Clear); Urine Urobilinogen Normal (Normal)
[2022-05-22 22:03] VITALS: RESP 18
[2022-05-22 22:08] LABS: Red Blood Cells-Urine 0-5 SEEN /hpf (0-5); White Blood Cells 0-5 SEEN /hpf (0-5)
[2022-05-22 23:02] VITALS: RESP 18
[2022-05-22 23:26] LABS: Bedside Glucose 119 mg/dL (74-106)
== END 2022-05-22 23:09 | disposition home or self-care (01) ==
PROVIDERS: Emergency Provider Emergency Medicine; PCP Internal Medicine; Visit Provider Emergency Medicine
DX: E10.649 Type 1 diabetes mellitus with hypoglycemia without coma (principal); F19.11 Other psychoactive substance abuse, in remission; Z79.4 Long term (current) use of insulin; I10 Essential (primary) hypertension; E78.00 Pure hypercholesterolemia, unspecified; Z20.822 Contact with and (suspected) exposure to COVID-19; Z79.899 Other long term (current) drug therapy; Z87.891 Personal history of nicotine dependence
CPT/HCPCS: 80053; 81001; 82962; 85025; 87428; 99283; A4216

== ENCOUNTER 2022-09-21 15:55 | Emergency (ER) | payer MEDICAID, SELFPAY ==
[2022-09-21 15:56] VITALS: BP 147/75; PULSE 79; RESP 18; TEMP 36.1; O2SAT 98; BMI 27.8
[2022-09-21 16:40] LABS: Bedside Glucose 75 mg/dL (74-106)
--- NOTE | 2022-09-21 17:30 | EX.ED.DYSGE1 ---
HPI <JOSEY Franco - Last Filed: 09/21/22 20:44> History of Present Illness Chief Complaint: Hypoglycemia Narrative Narrative: 52-year-old female with PMH of type 2 diabetes presents with recurrent hypoglycemia that started last night. She typically takes 4 units of lispro before eating. She did this last night for dinner but after an hour or so blood sugars then dropped to the 50s. Sugar was low again today despite eating lunch and snacks and not taking any insulin. She states it would go up to the 200s but then dropped anywhere from the 50s to 80s. She otherwise feels well this week. She takes Lantus 25 mg at night and Ozempic once weekly. She does report losing 30 pounds over the last couple months. She follows with a [facility] hospice entrance attendant. PFS <JOSEY Franco - Last Filed: 09/21/22 20:44> [facility] Medical History (Updated 09/21/22 @ 19:37 by JOSEY Franco) Colon cancer screening History of drug abuse in remission History of hypercholesterolemia History of hypertension History of tobacco abuse History of type 1 diabetes mellitus Hypertension Thyroid nodule Home Medications sodium chloride 0.65 % nasal spray aerosol 2 spray NASAL BID PRN PRN NASAL DRYNESS 10/18/20 [Rx Last Taken Unknown] albuterol sulfate 90 mcg/actuation aerosol inhaler (Ventolin HFA) 2 puff inhalation Q4H PRN shortness of breath or wheezing #18 grams 02/27/21 [Rx Last Taken Unknown] fluticasone propionate 50 mcg/actuation nasal spray,suspension 2 spray intranasal DAILY #16 grams 02/27/21 [Rx Last Taken Unknown] levonorgestrel 20.4 mcg/24 hrs (8 yrs) 52 mg intrauterine device (Liletta) 1 device intrauterine ONCE 05/15/21 [History Last Taken Unknown] amlodipine 5 mg tablet 5 mg PO DAILY #90 tabs 09/25/21 [Rx Last Taken Unknown] atorvastatin 20 mg tablet 20 mg PO DAILY CHOLESTEROL #90 tabs 09/25/21 [Rx Last Taken Unknown] ferrous sulfate 325 mg (65 mg iron) tablet 325 mg PO BID SUPPLEMENT #180 tabs 09/25/21 [Rx Last Taken Unknown] insulin glargine 100 unit/mL (3 mL) subcutaneous pen 35 unit subcut QHS DM 09/25/21 [History Last Taken Unknown] insulin lispro 100 unit/mL subcutaneous pen 10 unit subcut TIDCM 09/25/21 [History Last Taken Unknown] lisinopril 40 mg tablet 40 mg PO DAILY BP #90 tabs 09/25/21 [Rx Last Taken Unknown] pantoprazole 40 mg tablet,delayed release 40 mg PO DAILY GERD #90 tabs 09/25/21 [Rx Last Taken Unknown] oxybutynin chloride 5 mg tablet 5 mg PO BID BLADDER #180 tabs 08/14/22 [Rx Last Taken Unknown] Allergy/AdvReac Type Severity Reaction Status Date / Time No Known Allergies Allergy Verified 09/21/22 15:56 Family History Other Adopted Social History adopted: Yes Smoking Status: Former smoker quit date: 07/01/19 pack-years: 35 alcohol intake: former substance use type: former substance user what type of physical activity do you participate in: none ROS <JOSEY Franco - Last Filed: 09/21/22 20:44> ROS ED ROS Narrative Constitutional: Negative for fever, chills, malaise. CVS: Negative for palpitations, chest pain, syncope. Respiratory: Negative for shortness of breath, cough. GI: Negative for abdominal pain, nausea, vomiting, diarrhea. : Negative for dysuria, hematuria or frequency. Neuro: Negative for headache. Skin: Negative for rash. EXAM <JOSEY Franco - Last Filed: 09/21/22 20:44> Physical Exam Narrative Exam Narrative: CONST: Patient sitting in no acute distress. EYES: Normal inspection. ENT: Normal inspection, moist mucous membranes. NECK: Normal inspection. RESP: No respiratory distress, CTAB. CVS: Regular rate and rhythm, no murmur, no gallop. ABD: Soft and nontender, no guarding or rebound, nondistende. SKIN: Color normal, no rash, warm, dry, intact. EXTREMITIES: Normal appearance, no pedal edema. NEURO: Oriented x4. PSYCH: Normal affect. Const Vital Signs: 09/21/22 15:56 09/21/22 17:27 09/21/22 17:37 Temperature 96.9 F L Temperature Source Temporal Pulse Rate 79 63 Respiratory Rate 18 12 Respiratory Effort Normal Non-Labored Blood Pressure 147/75 H 106/72 Blood Pressure Mean 99 83 Pulse Ox 98 95 Oxygen Delivery Method Room Air Room Air 09/21/22 19:51 Temperature Temperature Source Pulse Rate Respiratory Rate 16 Respiratory Effort Blood Pressure 119/87 H Blood Pressure Mean Pulse Ox Oxygen Delivery Method <Dr. Kanchan Galeano DO - Last Filed: 09/24/22 21:28> Physical Exam Const Vital Signs: 09/21/22 15:56 09/21/22 17:27 09/21/22 17:37 Temperature 96.9 F L Temperature Source Temporal Pulse Rate 79 63 Respiratory Rate 18 12 Respiratory Effort Normal Non-Labored Blood Pressure 147/75 H 106/72 Blood Pressure Mean 99 83 Pulse Ox 98 95 Oxygen Delivery Method Room Air Room Air 09/21/22 19:51 Temperature Temperature Source Pulse Rate Respiratory Rate 16 Respiratory Effort Blood Pressure 119/87 H Blood Pressure Mean Pulse Ox Oxygen Delivery Method MDM <JOSEY Franco - Last Filed: 09/21/22 20:44> [facility] MDM Narrative Medical decision making narrative: Patient presents with episodes of hypoglycemia over the last 24 hours. She is typically on lispro at mealtime and Lantus at night. She took Lantus 25 units last night but has not taken any short acting insulin today. Sugars go up after eating but then dropped again. Labs were checked here. CBC shows white count of 12.1, hemoglobin 13.4. BMP shows glucose 109 with normal anion gap. UA negative for infection. Since she is not taking any short acting insulin today and her sugars still do trend down after eating I recommended she decrease her Lantus from 25 to 15 units. She should check her levels frequently and give lispro if needed. Would rather her sugars run high for couple days and have episodes of hypoglycemia until she can call her hospice entrance attendant on Saturday. She was agreeable with this plan and was discharged in stable condition. Differential: Diabetic hyperglycemia, underlying electrolyte abnormality or infection such as UTI Lab Data Attestation: I reviewed the patient's lab results. Labs: Laboratory Results - last 24 hr 09/21/22 09/21/22 09/21/22 16:18 18:40 18:40 WBC 12.1 H RBC 4.31 Hgb 13.4 Hct 40.5 MCV 94.0 MCH 31.1 MCHC 33.1 RDW Std Deviation 45.4 H RDW Coeff of Jv 13.2 Plt Count 281 MPV 11.1 Immature Gran % (Auto) 0.400 Neut % (Auto) 63.9 Lymph % (Auto) 26.4 Morris % (Auto) 7.4 Eos % (Auto) 1.4 Baso % (Auto) 0.5 Absolute Neuts (auto) 7.7 Absolute Lymphs (auto) 3.19 Nucleated RBC % 0 Sodium 142 Potassium 3.3 L Chloride 106 Carbon Dioxide 32.0 Anion Gap 4 L BUN 11 Creatinine 0.65 Estim Creat Clear Calc 84.70 Est GFR (MDRD) Af Amer 123 Est GFR (MDRD) Non-Af 102 BUN/Creatinine Ratio 16.8 Glucose 109 H Calcium 9.2 Urine Color Urine Clarity Urine pH Ur Specific [place] Urine Protein Urine Glucose (UA) Urine Ketones Urine Occult Blood Urine Nitrite Urine Bilirubin Urine Urobilinogen Ur Leukocyte Esterase Urine RBC Urine WBC Ur Squamous Epith Cells Amorphous Sediment Urine Bacteria Urine Mucus POC Glucose 75 09/21/22 18:40 WBC RBC Hgb Hct MCV MCH MCHC RDW Std Deviation RDW Coeff of Jv Plt Count MPV Immature Gran % (Auto) Neut % (Auto) Lymph % (Auto) Morris % (Auto) Eos % (Auto) Baso % (Auto) Absolute Neuts (auto) Absolute Lymphs (auto) Nucleated RBC % Sodium Potassium Chloride Carbon Dioxide Anion Gap BUN Creatinine Estim Creat Clear Calc Est GFR (MDRD) Af Amer Est GFR (MDRD) Non-Af BUN/Creatinine Ratio Glucose Calcium Urine Color Yellow Urine Clarity Clear Urine pH 8.0 Ur Specific [place] 1.010 Urine Protein Negative Urine Glucose (UA) Normal Urine Ketones Negative Urine Occult Blood Negative Urine Nitrite Negative Urine Bilirubin Negative Urine Urobilinogen 1 H Ur Leukocyte Esterase Negative Urine RBC 0 SEEN Urine WBC 0 SEEN Ur Squamous Epith Cells 0-5 SEEN Amorphous Sediment 1+ Urine Bacteria 0 SEEN Urine Mucus 0 SEEN POC Glucose <Dr. Kanchan Galeano, DO - Last Filed: 09/24/22 21:28> [facility] Narrative Medical decision making narrative: Patient presents with episodes of hypoglycemia over the last 24 hours. She is typically on lispro at mealtime and Lantus at night. She took Lantus 25 units last night but has not taken any short acting insulin today. Sugars go up after eating but then dropped again. Labs were checked here. CBC shows white count of 12.1, hemoglobin 13.4. BMP shows glucose 109 with normal anion gap. UA negative for infection. Since she is not taking any short acting insulin today and her sugars still do trend down after eating I recommended she decrease her Lantus from 25 to 15 units. She should check her levels frequently and give lispro if needed. Would rather her sugars run high for couple days and have episodes of hypoglycemia until she can call her hospice entrance attendant on Saturday. She was agreeable with this plan and was discharged in stable condition. Differential: Diabetic hyperglycemia, underlying electrolyte abnormality or infection such as UTI I have personally performed a face to face assessment of the patient and have reviewed the BRITTANY Note. I performed a substantive portion of the visit including all aspects of the following. My owen findings include: History is Patient is a 52-year-old female with history of insulin-dependent diabetes mellitus as well as recent weight loss presenting with episodes of hypoglycemia. Patient has a continuous glucometer that has notified her when her sugars are dropping. She states this morning she was sleeping and that sugars running low. A couple months ago she had reduced her Lantus on her own because of her weight loss. Patient's had continued weight loss. She is currently taking 25 units of Lantus daily. She stopped using her rapid acting over the last few days. She notes more variability in her blood sugar after she eats within it goes down pretty quickly without any rapid acting. Patient's lab work largely unremarkable with no findings consistent with infection or other cause of her hypoglycemic episodes. Patient does have a mild leukocytosis of uncertain clinical significance. Patient instructed to follow-up with her hospice entrance attendant through [facility] and in the meantime to decrease her basal Lantus to 15 units daily. Patient counseled that she can titrate up if she noticed that she is no longer having hypoglycemic episodes and is become hyperglycemic. She verbalizes agreement understands plan. Discharged home in stable condition. Patient does not have any hypoglycemic episodes in the emergency room and is eating and drinking as well as acting appropriately. Other additions or changes: [None] Lab Data Labs: Laboratory Results - last 24 hr 09/21/22 09/21/22 09/21/22 16:18 18:40 18:40 WBC 12.1 H RBC 4.31 Hgb 13.4 Hct 40.5 MCV 94.0 MCH 31.1 MCHC 33.1 RDW Std Deviation 45.4 H RDW Coeff of Jv 13.2 Plt Count 281 MPV 11.1 Immature Gran % (Auto) 0.400 Neut % (Auto) 63.9 Lymph % (Auto) 26.4 Morris % (Auto) 7.4 Eos % (Auto) 1.4 Baso % (Auto) 0.5 Absolute Neuts (auto) 7.7 Absolute Lymphs (auto) 3.19 Nucleated RBC % 0 Sodium 142 Potassium 3.3 L Chloride 106 Carbon Dioxide 32.0 Anion Gap 4 L BUN 11 Creatinine 0.65 Estim Creat Clear Calc 84.70 Est GFR (MDRD) Af Amer 123 Est GFR (MDRD) Non-Af 102 BUN/Creatinine Ratio 16.8 Glucose 109 H Calcium 9.2 Urine Color Urine Clarity Urine pH Ur Specific [place] Urine Protein Urine Glucose (UA) Urine Ketones Urine Occult Blood Urine Nitrite Urine Bilirubin Urine Urobilinogen Ur Leukocyte Esterase Urine RBC Urine WBC Ur Squamous Epith Cells Amorphous Sediment Urine Bacteria Urine Mucus POC Glucose 75 09/21/22 18:40 WBC RBC Hgb Hct MCV MCH MCHC RDW Std Deviation RDW Coeff of Jv Plt Count MPV Immature Gran % (Auto) Neut % (Auto) Lymph % (Auto) Morris % (Auto) Eos % (Auto) Baso % (Auto) Absolute Neuts (auto) Absolute Lymphs (auto) Nucleated RBC % Sodium Potassium Chloride Carbon Dioxide Anion Gap BUN Creatinine Estim Creat Clear Calc Est GFR (MDRD) Af Amer Est GFR (MDRD) Non-Af BUN/Creatinine Ratio Glucose Calcium Urine Color Yellow Urine Clarity Clear Urine pH 8.0 Ur Specific [place] 1.010 Urine Protein Negative Urine Glucose (UA) Normal Urine Ketones Negative Urine Occult Blood Negative Urine Nitrite Negative Urine Bilirubin Negative Urine Urobilinogen 1 H Ur Leukocyte Esterase Negative Urine RBC 0 SEEN Urine WBC 0 SEEN Ur Squamous Epith Cells 0-5 SEEN Amorphous Sediment 1+ Urine Bacteria 0 SEEN Urine Mucus 0 SEEN POC Glucose Discharge Plan Triage Chief Complaint: Hypoglycemia ED Midlevel Provider: Gabbie Tim ED Provider: Kanchan Galeano Dx/Rx/DC Orders Clinical Impression: Diabetic hypoglycemia Instructions: Blood Sugar Check Steps Prescriptions: No Action fluticasone propionate 50 mcg/actuation spray,suspension 2 spray intranasal DAILY Qty: 16 3RF albuterol sulfate [Ventolin HFA] 90 mcg/actuation HFA aerosol inhaler 2 puff inhalation Q4H PRN (Reason: shortness of breath or wheezing) Qty: 18 6RF insulin lispro 100 unit/mL insulin pen 10 unit SC TIDCM Rx Instructions: Along with sliding scale insulin with incremental 2 units. Hold if glucose less than 130 mg/dl Liletta 20.1 mcg/24 hrs (6 yrs) 52 mg intrauterine device 1 device intrauterine ONCE Rx Instructions: as a single dose insulin glargine 100 unit/mL (3 mL) insulin pen 35 unit SC QHS amlodipine 5 mg tablet 5 mg PO DAILY Qty: 90 1RF lisinopril 40 mg tablet 40 mg PO DAILY Qty: 90 1RF atorvastatin 20 mg tablet 20 mg PO DAILY Qty: 90 1RF ferrous sulfate 325 mg (65 mg iron) tablet 325 mg PO BID Qty: 180 1RF pantoprazole 40 mg tablet,delayed release (DR/EC) 40 mg PO DAILY Qty: 90 1RF sodium chloride 1 SPRAY aerosol,spray 2 spray NASAL BID PRN PRN (Reason: NASAL DRYNESS) 0RF oxybutynin chloride 5 mg tablet 5 mg PO BID Qty: 180 1RF Primary Care Provider: Cleveland Qiu Referrals: Cleveland Qiu MD [Primary Care Provider] - Activity Restrictions/Additional Instructions: I would decrease her Lantus to 15 units at bedtime. Check her sugars frequently and take the lispro if needed. Call your hospice entrance attendant on Saturday. Return to ER if symptoms worsen. Disposition Disposition: Home, Self Care Discharge Date/Time: 09/21/22 19:52
[2022-09-21 17:37] VITALS: BP 106/72; PULSE 63; RESP 12; O2SAT 95
[2022-09-21 18:54] LABS: Absolute Lymphocyte Count 3.19 X10^3/uL (0.83-4.51); Absolute Neutrophil Count 7.7 X10^3/uL (2.0-7.7); Bacteria 0 SEEN /hpf (None Seen); Basophil# 0.06 X10^3/uL; Basophil% 0.5 % (0-1); Eosinophil# 0.17 X10^3/uL; Eosinophils% 1.4 % (0-5); Hematocrit 40.5 % (37-47); Hemoglobin 13.4 g/dL (12.0-15.0); Lymphocyte # 3.19 X10^3/ul (0.83-4.51); Lymphocyte % 26.4 % (19-41); Mean Corp Hgb Conc 33.1 g/dL (32-36); Mean Corpuscular Hgb 31.1 pg (27.0-32.0); Mean Platelet Vol. 11.1 fl (6.2-12.0); Monocyte# 0.89 X10^3/uL; Monocyte% 7.4 % (0-10); Mucous, Urine 0 SEEN /hpf (<or=2+); NRBC Flagged by Analyzer 0 % (0-5); Neutrophil # 7.74 X10^3/uL (2.7-7.7); Neutrophil % 63.9 % (47-70); Platelet Count 281 K/mm3 (150-450); RBC Distribution Width CV 13.2 % (11.6-14.6); RBC Distribution Width SD 45.4 fl (35.1-43.9); Red Blood Cells-Urine 0 SEEN /hpf (0-5); Red Blood Count 4.31 M/mm3 (4.2-5.4); White Blood Cells 0 SEEN /hpf (0-5); White Blood Count 12.1 K/mm3 (4.4-11.0)
[2022-09-21 18:57] LABS: Color, Urine Yellow (Yellow); Glucose, Dipstick Normal (Normal); Ketone-Dipstick Negative (Negative); Leukocyte Esterase-Dipstick Negative /ul (Negative); Nitrite-Dipstick Negative (Negative); Occult Blood-Urine Negative /ul (Negative); Protein-Dipstick Negative (Negative); Urine Bilirubin Dipstick Negative (Negative); Urine Urobilinogen 1 mg/dl (Normal)
[2022-09-21 19:11] LABS: Anion Gap 4 (5-15); BUN 11 mg/dL (7-18); BUN/Creat Ratio 16.8 RATIO (10-20); Calcium,Total 9.2 mg/dL (8.5-10.1); Chloride 106 mmol/L (98-107); Creatinine, Serum 0.65 mg/dL (0.55-1.02); EST Glomerular Filtration Rate 102 mL/min (>60); Est Glom Filt Rate - Afr Amer 123 mL/min (>60); Glucose 109 mg/dL (74-106); Potassium 3.3 mmol/L (3.5-5.1); Sodium Level 142 mmol/L (136-145)
[2022-09-21 19:24] LABS: Urine Clarity Clear (Clear)
[2022-09-21 19:25] LABS: Amorphous Sediment 1+; Squamous Epithelial Cells - UA 0-5 SEEN /hpf (5-10)
[2022-09-21 19:51] VITALS: BP 119/87; RESP 16
== END 2022-09-21 19:52 | disposition home or self-care (01) ==
PROVIDERS: Physician Assistant; Emergency Provider Emergency Medicine; PCP Internal Medicine; Visit Provider Emergency Medicine
DX: E10.649 Type 1 diabetes mellitus with hypoglycemia without coma (principal); Z79.4 Long term (current) use of insulin; I10 Essential (primary) hypertension; E78.00 Pure hypercholesterolemia, unspecified; Z87.891 Personal history of nicotine dependence; Z79.899 Other long term (current) drug therapy
CPT/HCPCS: 80048; 81001; 82962; 85025; 99283; A4216

== ENCOUNTER 2022-12-05 20:42 | Emergency (ER) | payer MEDICAID, SELFPAY ==
[2022-12-05 20:43] VITALS: BP 151/84; PULSE 102; RESP 16; TEMP 36.2; O2SAT 99; BMI 25.7
[2022-12-05 20:54] VITALS: BP 151/84; PULSE 105; RESP 16; TEMP 36.2; O2SAT 99
--- NOTE | 2022-12-05 20:54 | EX.ED.DYSGE1 ---
HPI History of Present Illness Chief Complaint: Abscess Detail of Chief Complaint: Abscess posterior proximal left thigh Informant: patient Onset/Context/Timing Onset: Weeks (1 week ago) Context: Sudden Onset Timing: Continuous Quality: Pain Location: Proximal posterior left thigh Current Severity: Mild Maximum Severity: Moderate Worsened by: Sitting and attempt to drain the abscess herself Relieved by: Nothing Associated Symptoms Associated Symptoms: Elevated blood sugar Narrative Narrative: Patient is a 52-year-old woman with history of thyroid nodule, insulin-dependent diabetes and hypercholesterolemia who presents with abscess proximal posterior left thigh. First noted 1 week ago. The redness and pain has increased over the past week. She attempted to drain it herself by poking it without success. She stated was too painful. She does report increased blood sugar from baseline. She does report polydipsia without polyuria. She denies nocturia. She denies antibiotic allergies. Prior similar symptoms: No Recent Illness/Hospitalization: No [facility] Medical History Colon cancer screening History of drug abuse in remission History of hypercholesterolemia History of hypertension History of tobacco abuse History of type 1 diabetes mellitus Hypertension Thyroid nodule Home Medications levonorgestrel 20.4 mcg/24 hrs (8 yrs) 52 mg intrauterine device (Liletta) 1 device intrauterine ONCE 05/15/21 [History Last Taken Unknown] atorvastatin 20 mg tablet 20 mg PO DAILY CHOLESTEROL #90 tabs 09/25/21 [Rx Last Taken Unknown] oxybutynin chloride 5 mg tablet 5 mg PO BID BLADDER #180 tabs 08/14/22 [Rx Last Taken Unknown] cephalexin 500 mg capsule 500 mg PO Q6 #28 CAPSULES 12/05/22 [Rx Last Taken Unknown] dulaglutide 0.75 mg/0.5 mL subcutaneous pen injector (Trulicity) 0.75 mg subcut QWEEK 12/05/22 [History Last Taken Unknown] lisinopril 20 mg tablet 20 mg PO DAILY 12/05/22 [History Last Taken Unknown] sulfamethoxazole 800 mg-trimethoprim 160 mg tablet 1 tab PO BID #14 TABLETS 12/05/22 [Rx Last Taken Unknown] Allergy/AdvReac Type Severity Reaction Status Date / Time No Known Allergies Allergy Verified 12/05/22 20:45 Family History Other Adopted Social History adopted: Yes Smoking Status: Former smoker quit date: 07/01/19 pack-years: 35 alcohol intake: former substance use type: former substance user what type of physical activity do you participate in: none ROS ROS ED Constitutional Constitutional ED: Denies chills, fever(s), subjective, sweats or weight loss Eyes Eyes: Denies blurry vision, change in vision or diplopia ENT ENT ED: Denies ear pain, rhinorrhea or sore throat Cardiovascular Cardiovascular: Denies chest pain or palpitations Respiratory/Chest Respiratory/Chest: Denies cough or dyspnea Gastrointestinal Gastrointestinal: Denies abdominal pain, nausea or vomiting Musculoskeletal Musculoskeletal: Denies arthralgias, back pain, myalgias or neck pain Integumentary Reports abscess and rash Neurologic Neurologic: Denies paresthesias or weakness Endocrine Endocrinology: Reports polydipsia; Denies polyuria Hematologic/Lymphatic Hematologic/Lymphatic: Reports systems reviewed and no addt'l complaints, except as documented EXAM Physical Exam Const Vital Signs: 12/05/22 20:43 12/05/22 20:54 Temperature 97.2 F L 97.2 F L Temperature Source Temporal Temporal Pulse Rate 102 H 105 H Respiratory Rate 16 16 Blood Pressure 151/84 H 151/84 H Blood Pressure Mean 106 106 Pulse Ox 99 99 Oxygen Delivery Method Room Air Positive well nourished and well developed General Appearance ED: well developed and NAD; Negative for cyanotic, diaphoretic or pallor HEENT Reports moist mucous membranes HEENT Narrative: Head is normal cephalic and atraumatic. Ears are normal. Nares patent. Mucosa is moist. Eyes PERRL and EOMs intact bilaterally General Eye ED: Negative for pale conjunctiva or scleral icterus Neck no lymphadenopathy, supple and no JVD Resp normal respiratory effort and clear to auscultation bilaterally Cardio regular rate, regular rhythm, S1 normal heart sound, S2 normal heart sound and no murmurs GI normal to inspection, nondistended, normoactive bowel sounds, non-tender and non-distended; Negative for hepatosplenomegaly or no masses Extremity Negative for normal to inspection Extremity Narrative: Patient has an area of induration that is approxi-5 cm in duration. There is erythema. There is necrotic center noted. There is no lymphangitis. There is no inguinal lymphadenopathy General Extremety ED: Yes tenderness; Negative for edema General Extremity: Negative for edema Neuro oriented x3, CN's II-XII intact bilaterally and no sensory deficits noted Sensorium / Orientation: alert Psych mental status grossly normal Skin skin turgor normal Skin Narrative: Abscess relieved described General Skin Exam: Negative for jaundice or pallor MDM MDM MDM Narrative Medical decision making narrative: Since patient is afebrile and the area of erythema is less than 5 cm CBC was not obtained. We will assess PGT. If markedly elevated will obtain blood work. We will obtain consent for I&D of subcutaneous abscess. Patient was treated with cephalexin and Bactrim orally. Suspect she will able to go home. History & Record Review Additional record(s) reviewed:: Prior outpatient record, Prior ED visit and Prior labs Lab Data Attestation: I reviewed the patient's lab results. (BG T was 161.) Procedures Other Procedures Procedure(s): I&D of subcutaneous posterior thigh abscess: Patient was explained risk benefits. Consent was signed. Patient was prepped draped sterile manner. The area was Nestabs by local infiltration and field block. Incision was made using 10 blade. 3 cm incision was made. There was purulent material noted. Blunt dissection was undertaken with multiple pockets noted. There was additional purulent material noted and expressed from the wound. The wound/cavity was irrigated. 1 inch iodoform gauze was placed loosely as a wick. Patient to follow-up with her PCP in 2 days for wound check and removal of the wick. Discharge Plan Triage Chief Complaint: Abscess ED Provider: Grady Ervin Dx/Rx/DC Orders Clinical Impression: Cellulitis and abscess of right lower extremity, Insulin dependent diabetes mellitus Instructions: ED Abscess Incision And Drainage, ED Cellulitis Prescriptions: New sulfamethoxazole-trimethoprim [sulfamethoxazole-trimethoprim] 800-160 mg tablet 1 tab PO BID Qty: 14 0RF cephalexin [cephalexin] 500 mg capsule 500 mg PO Q6 Qty: 28 0RF No Action Liletta 20.1 mcg/24 hrs (6 yrs) 52 mg intrauterine device 1 device intrauterine ONCE Rx Instructions: as a single dose atorvastatin 20 mg tablet 20 mg PO DAILY Qty: 90 1RF lisinopril 20 mg tablet 20 mg PO DAILY Trulicity 0.75 mg/0.5 mL pen injector 0.75 mg SUBCUT QWEEK oxybutynin chloride 5 mg tablet 5 mg PO BID Qty: 180 1RF Primary Care Provider: [place] Qiu Referrals: Clve[place] Qiu MD [Primary Care Provider] - 2 Days for wound check Disposition Disposition: Home, Self Care
[2022-12-05] MEDS: Smz/Tmp Ds Tablet 1 TABLET PO (21:03)
[2022-12-05] MEDS: Cephalexin 250 MG Capsule 500 MG PO (21:03)
[2022-12-05] MEDS: Lidocaine 1% (20 ml mdv) 20 ML Vial INFILT (21:04)
[2022-12-05 21:30] LABS: Bedside Glucose 158 mg/dL (74-106)
== END 2022-12-05 21:41 | disposition home or self-care (01) ==
PROVIDERS: Emergency Provider Emergency Medicine; PCP Internal Medicine; Visit Provider Emergency Medicine
DX: L02.415 Cutaneous abscess of right lower limb (principal); E10.65 Type 1 diabetes mellitus with hyperglycemia; Z79.4 Long term (current) use of insulin; L03.115 Cellulitis of right lower limb; E78.00 Pure hypercholesterolemia, unspecified; I10 Essential (primary) hypertension; Z87.891 Personal history of nicotine dependence
CPT/HCPCS: 10060; 82962; 99283

== ENCOUNTER 2022-12-28 08:30 | Outpatient (RCR) | payer MEDICAID, SELFPAY ==
[2022-12-21 08:35] VITALS: BP 127/74; PULSE 78; RESP 20; TEMP 36.2; BMI 25.8
--- NOTE | 2022-12-21 13:25 | PCM.WC.HP ---
History of Present Illness Date of Service: 12/21/22 Chief Complaint: L posterior thigh/ischial wound History of Wound: Patient presents for evaluation and management of a left ischial wound. She first noticed it about 3-4 weeks ago, she is not sure what caused it but does not recall a bite or injury to that area. She presented to the ER 2 weeks ago (12/05/22) where abscess was drained and packed and she was prescribed Bactrim and Keflex. She then presented to PCP on 12/10 for f/u and she was referred here for continued care. At home, she has been washing it with Dial soap, patting dry, and covering with silver-cell/gauze. She has not noticed any increased pain, swelling, or drainage. She does have Type 1 diabetes that is well-controlled at this time and HTN. Otherwise, no significant medical history. She denies prior history of wounds or difficulties with healing in the past. [facility] Medical History (Updated 12/21/22 @ 13:43 by JOSEY Wallace) Colon cancer screening History of drug abuse in remission History of hypercholesterolemia History of hypertension History of tobacco abuse History of type 1 diabetes mellitus Hypertension Thyroid nodule Unspecified open wound, left thigh, initial encounter Home Medications levonorgestrel 20.4 mcg/24 hrs (8 yrs) 52 mg intrauterine device (Liletta) 1 device intrauterine ONCE 05/15/21 [History Last Taken Unknown] atorvastatin 20 mg tablet 20 mg PO DAILY CHOLESTEROL #90 tabs 09/25/21 [Rx Last Taken Unknown] dulaglutide 0.75 mg/0.5 mL subcutaneous pen injector (Trulicity) 0.75 mg subcut QWEEK 12/05/22 [History Last Taken Unknown] lisinopril 20 mg tablet 20 mg PO DAILY 12/05/22 [History Last Taken Unknown] sulfamethoxazole 800 mg-trimethoprim 160 mg tablet 1 tab PO BID #14 TABLETS 12/05/22 [Rx Last Taken Unknown] Allergy/AdvReac Type Severity Reaction Status Date / Time No Known Allergies Allergy Verified 12/21/22 08:57 Family History Other Adopted Social History adopted: Yes Smoking Status: Former smoker quit date: 07/01/19 pack-years: 35 alcohol intake: former substance use type: former substance user what type of physical activity do you participate in: none Vital Signs Vital Signs Vital Signs: 12/21/22 08:35 Temperature 97.1 F L Temperature Source Temporal Pulse Rate 78 Respiratory Rate 20 H Blood Pressure 127/74 H Blood Pressure Mean 91 Blood Pressure Source Monitor Weight Weight: 145 lb 10.724 oz Body Mass Index (BMI) 25.8 Physical Exam Const alert, oriented x3, no apparent distress, average body habitus, healthy appearing and well nourished General Appearance: cooperative and comfortable HEENT normocephalic, head/scalp atraumatic, hearing grossly normal bilaterally, external ears normal and external nose normal Head and Scalp: normal to inspection, normocephalic and atraumatic Eyes EOMs intact bilaterally General Eye: normal appearance of both eyes Neck full ROM General: normal visual inspection and trachea midline Resp normal respiratory effort, normal air movement, no retractions and no use of accessory muscles Effort and Inspection: able to speak in complete sentences Cardio regular rate and regular rhythm Peripheral Pulses: pulses 2+ throughout Extremity normal to inspection, full ROM and no clubbing, cyanosis or edema Skin Wounds: wounds noted Wound Narrative: L ischial wound with significant slough/nonviable tissue. Level Green granulation tissue at base. No significant undermining/tracking. No fluctuance, induration, erythema and no appreciable drainage, no drainage able to be expressed. Neuro oriented x3, CN's II-XII intact bilaterally, moves all extremities, no focal motor deficits, no sensory deficits noted and gait normal Speech: speech normal Psych mental status grossly normal, cooperative, speech normal and activity/motor behavior normal Debridement Note Debridement Note Wound debrided: L ischial wound Laterality: Left Type of Debridement: Excisional debridement Anesthesia Used: 5% Lidocaine Gel and Cetacaine Depth: Down to and including healthy tissue and in the subcutaneous layer Percentage of wound debrided: 100 Instrument Used: 5mm curette, Forceps and - (scissors) Tissue Removed: slough, nonviable tissue Severity: Fat Layer Exposed Amount of bleeding with debridement: Mild Bleeding Controlled with: Pressure Patient tolerated procedure: Patient tolerated procedure well Post-Debridement Measurements and Additional Note: Post-Debridement Measurements/Treatment WC - Nurse 1 - General Ulcer Assessment Start: 12/21/22 08:35 Freq: Status: Active Protocol: WC.LOWEXT Activity Type Activity Date Activity User E-sign Co-sign Detail Recorded Client Recorded Date Recorded By Document 12/21/22 08:35 DL [id number] 12/21/22 08:53 DL 12/21/22 08:35 WC - Today's Visit Information Type of service Initial Visit Arrival Mode Ambulatory Transfer Assistance None Patient Identification Verified (Name & Yes ) Patient Requires Transmission-Based No Precautions Finger Stick Blood Sugar(mg/dl) (if 113 indicated): Blood Sugar Stated by Patient Height and Weight Height 5 ft 3 in Weight 145 lb 10.724 oz Weight in Pounds 145.7 lbs Body Mass Index (BMI) 25.8 BMI Classification Overweight BSA - Lizzie 1.69 Vital Signs Temperature (97.8 F-99.1 F) 97.1 F L Temperature Source Temporal Pulse Rate (60-100) 78 Pulse Location Monitor Respiratory Rate (12-18) 20 H Respiratory rate source Observation Blood Pressure (90/60-120/80) 127/74 H Blood Pressure Mean 91 Source Monitor Pain Scale: 0-10 Numeric Is Patient Pain Free? Yes Communication Assessment Preferred language Swedish Able to Read Yes Able to Write Yes Caregiver Communication Skills No Impairment Impairment Right Hearing Abillity Normal Left Hearing Abillity Normal Visual Assistive Devices Glasses Teaching Assessment Preferences Verbal,Written Barriers to Learning None Readiness To Learn Good Willingness to Engage in Self Management Med Activies Readiness to Engage in Self Management Med Activities Anxiety Level Calm Cooperation Cooperative Perception Coherent Interest in Health Problem Asks Questions Education Importance Acknowledges Need Does Patient Smoke tobacco or other No substances Smoking Status Former smoker Is Patient Diabetic Yes Functional Assessment Recent Decline in Ability to Perform Denies Any Declines Culture/Nondenominational/Telephone Operator Receptionist Cultural/Nondenominational Needs that may affect No Treatment Plan Would you allow our hospital vamp strap ironer to No meet you for the purpose of spiritual/ emotional support? Telephone Operator Receptionist to contact place of sabianist No Teaching: Wound Center *Wound/Skin Impairment -Person Taught Patient Dressing Your Wound -Person Taught Patient *Welcome to the Wound Center -Person Taught Patient CAMRON - Nurse 1 - General Ulcer Measurement Start: 12/21/22 08:35 Freq: Status: Active Protocol: Activity Type Activity Date Activity User E-sign Co-sign Detail Recorded Client Recorded Date Recorded By Document 12/21/22 08:35 DL [id number] 12/21/22 08:53 DL 12/21/22 08:35 Wound Center Nurse 1 #1 L Ischial -Current Size (cm) - Length 1.6 -Current Size (cm) - Width 1.8 -Current Size (cm) - Depth 0.3 -Total Square Cm 2.88 -Photo Taken Yes -Exudate Amt Medium -Exudate Type Serosanguineous -Wound Margin Distinct, Outline Attached -Granulation Amt Small (1-33%) -Granulation Quality Level Green -Necrosis Amt Large (67-100%) -Necrotic Tissue Type Adherent Slough -Structure Exposed N/A -Texture (Ashley-wound Skin Appearance) Scarring -Moisture (Ashley-wound Skin Appearance) No Abnormality -Color (Ashley-wound Skin Appearance) Erythema -Temperature (Ashley-wound Skin No Abnormality Appearance) (Pt Warm) -Tenderness on Palpation (Ashley-wound No Skin Appearance) -Ulcer Cleansing Soap and Water -Foul Odor after Cleansing No -Anesthetic Used 5% Lidocaine Gel WC - Nurse 2 - General Ulcer CM Notes Start: 12/21/22 08:35 Freq: Status: Active Protocol: Activity Type Activity Date Activity User E-sign Co-sign Detail Recorded Client Recorded Date Recorded By Document 12/21/22 09:56 PL [id number] 12/21/22 09:58 PL 12/21/22 09:56 Wound Center Nurse 2 -Time 09:05 -Correct Patient Yes -Correct Side, Site, Position Yes -Correct Procedure Yes -Procedure Performed Yes -Type of Procedure Debridement -Clinical Debridement Subcutaneous -Tissue Removed Subcutaneous -Post Debridement (cm) - Length 1.8 -Post Debridement (cm) - Width 1.2 -Post Debridement (cm) - Depth 0.4 -Total Square (Post) (cm) 2.16 -Area of Debridement (cm) - Length 1.8 -Area of Debridement (cm) - Width 1.2 -Total Square (Area) (cm) 2.16 -Tunneling No -Undermining/Tunneling No -Circular Undermining No -Wound/Ulcer Outcome Not Healed -Ulcer Cleansing Rinsed/ Irrigated with Saline -Foul Odor after Cleansing No -Bioengineered Tissue No -Bleeding Controlled with Pressure -Treatment Response Procedure Tolerated Well -Debridement - Subq, 1st 20sq cm Yes Pain Scale: 0-10 Numeric Is Patient Pain Free? Yes WC - Nurse 3 - General Ulcer D/C NN Start: 12/21/22 08:35 Freq: Status: Active Protocol: Activity Type Activity Date Activity User E-sign Co-sign Detail Recorded Client Recorded Date Recorded By Document 12/21/22 09:26 DL [id number] 12/21/22 09:29 DL 12/21/22 09:26 Wound Care Center Nurse 3 #1 L Ischial -Ulcer Cleansing Rinsed/ Irrigated with Saline -Foul Odor after Cleansing No -Primary Dressing Applied Mepilex Border, Promogran Dorothy Matter -Mepilex Border 1 -Promogran Dorothy Matter 1 Treatment Response Procedure Tolerated Well Pain Scale: 0-10 Numeric Is Patient Pain Free? 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 Will apply moistened dorothy to the wound bed, cover with foam dressing. Change once daily or more often as needed to keep clean and dry. Continue to wash with gentle antibacterial soap and water and pat dry prior to dressing changes. Do not submerge the wound such as with baths, swimming, etc. It will be important for her healing to maintain good glycemic control. In addition, with the location of the wound it will be important to offload pressure to the area. I advised she get a eggcrate or other foam pad to place on her chair at work and the spot she sits in most often at home to help with offloading. Try to get up and walk every hour, try to change positions every half hour to an hour. No signs/symptoms of infection today. Return to wound care center in 1 week.
--- NOTE | 2022-12-28 07:06 | PCM.WC.PN ---
History of Present Illness Date of Service: 12/28/22 Chief Complaint: L posterior thigh/ischial wound History of Wound: Patient presents for evaluation and management of a left ischial wound. She first noticed it about 3-4 weeks ago, she is not sure what caused it but does not recall a bite or injury to that area. She presented to the ER 2 weeks ago (12/05/22) where abscess was drained and packed and she was prescribed Bactrim and Keflex. She then presented to PCP on 12/10 for f/u and she was referred here for continued care. At home, she has been washing it with Dial soap, patting dry, and covering with silver-cell/gauze. She has not noticed any increased pain, swelling, or drainage. She does have Type 1 diabetes that is well-controlled at this time and HTN. Otherwise, no significant medical history. She denies prior history of wounds or difficulties with healing in the past. Subjective Subjective She has done well with dressing changes over the last week, she is able to do them on her own. She has received wound care supplies. No N/V, F/C, new or worsening pain/swelling/drainage. She has been changing positions more often. She has not obtained an eggcrate pad for her desk chair yet. Objective Data Objective Data Vital Signs: Vital Signs Temp Pulse Resp BP 97.1 F L 78 20 H 127/74 H 12/21/22 08:35 12/21/22 08:35 12/21/22 08:35 12/21/22 08:35 Weight: 145 lb 10.724 oz Body Mass Index (BMI) 25.8 Charges/Coding Procedures Integumentary 111xxx-113xx: 30052 Dayna subq tissue 20 sq cm/< Physical Exam Const alert, oriented x3, no apparent distress, average body habitus, healthy appearing and well nourished General Appearance: cooperative and comfortable HEENT normocephalic, head/scalp atraumatic, hearing grossly normal bilaterally, external ears normal and external nose normal Head and Scalp: normal to inspection, normocephalic and atraumatic Eyes EOMs intact bilaterally General Eye: normal appearance of both eyes Neck full ROM General: normal visual inspection and trachea midline Resp normal respiratory effort, normal air movement, no retractions and no use of accessory muscles Effort and Inspection: able to speak in complete sentences Skin Wounds: wounds noted Wound Narrative: L ischial wound with significant slough/nonviable tissue. [place] granulation tissue at base. No significant undermining/tracking. No fluctuance, induration, erythema and no appreciable drainage, no drainage able to be expressed. Neuro oriented x3, CN's II-XII intact bilaterally, moves all extremities, no focal motor deficits, no sensory deficits noted and gait normal Speech: speech normal Psych mental status grossly normal, cooperative, speech normal and activity/motor behavior normal Debridement Note Debridement Note Wound debrided: L ischial wound Laterality: Left Type of Debridement: Excisional debridement Anesthesia Used: 5% Lidocaine Gel and Cetacaine Depth: Down to and including healthy tissue and in the subcutaneous layer Percentage of wound debrided: 100 Instrument Used: 5mm curette, Forceps and - (scissors) Tissue Removed: slough, nonviable tissue Severity: Fat Layer Exposed Amount of bleeding with debridement: Mild Bleeding Controlled with: Pressure Patient tolerated procedure: Patient tolerated procedure well Post-Debridement Measurements and Additional Note: Post-Debridement Measurements/Treatment - Nurse 1 - General Ulcer Assessment Start: 12/21/22 08:35 Freq: Status: Active Protocol: CAMRON.GAUTAM Activity Type Activity Date Activity User E-sign Co-sign Detail Recorded Client Recorded Date Recorded By Document 12/21/22 08:35 DL [id number] 12/21/22 08:53 DL 12/21/22 08:35 - Today's Visit Information Type of service Initial Visit Arrival Mode Ambulatory Transfer Assistance None Patient Identification Verified (Name & Yes ) Patient Requires Transmission-Based No Precautions Finger Stick Blood Sugar(mg/dl) (if 113 indicated): Blood Sugar Stated by Patient Height and Weight Height 5 ft 3 in Weight 145 lb 10.724 oz Weight in Pounds 145.7 lbs Body Mass Index (BMI) 25.8 BMI Classification Overweight BSA - Lizzie 1.69 Vital Signs Temperature (97.8 F-99.1 F) 97.1 F L Temperature Source Temporal Pulse Rate (60-100) 78 Pulse Location Monitor Respiratory Rate (12-18) 20 H Respiratory rate source Observation Blood Pressure (90/60-120/80) 127/74 H Blood Pressure Mean (mm Hg) 91 Source Monitor Pain Scale: 0-10 Numeric Is Patient Pain Free? Yes Communication Assessment Preferred language Armenian Able to Read Yes Able to Write Yes Caregiver Communication Skills No Impairment Impairment Right Hearing Abillity Normal Left Hearing Abillity Normal Visual Assistive Devices Glasses Teaching Assessment Preferences Verbal,Written Barriers to Learning None Readiness To Learn Good Willingness to Engage in Self Management Med Activies Readiness to Engage in Self Management Med Activities Anxiety Level Calm Cooperation Cooperative Perception Coherent Interest in Health Problem Asks Questions Education Importance Acknowledges Need Does Patient Smoke tobacco or other No substances Smoking Status Former smoker Is Patient Diabetic Yes Functional Assessment Recent Decline in Ability to Perform Denies Any Declines Culture/Alevism/Enterprise Resource Planning Consultant Cultural/Alevism Needs that may affect No Treatment Plan Would you allow our [facility] [place] pumping supervisor to No meet you for the purpose of spiritual/ emotional support? Enterprise Resource Planning Consultant to contact place of yarsani No Teaching: Wound Center *Wound/Skin Impairment -Person Taught Patient Dressing Your Wound -Person Taught Patient *Welcome to the Wound Center -Person Taught Patient WC - Nurse 1 - General Ulcer Measurement Start: 12/21/22 08:35 Freq: Status: Active Protocol: Activity Type Activity Date Activity User E-sign Co-sign Detail Recorded Client Recorded Date Recorded By Document 12/21/22 08:35 DL [id number] 12/21/22 08:53 DL 12/21/22 08:35 Wound Center Nurse 1 #1 L Ischial -Current Size (cm) - Length 1.6 -Current Size (cm) - Width 1.8 -Current Size (cm) - Depth 0.3 -Total Square Cm 2.88 -Photo Taken Yes -Exudate Amt Medium -Exudate Type Serosanguineous -Wound Margin Distinct, Outline Attached -Granulation Amt Small (1-33%) -Granulation Quality [place] -Necrosis Amt Large (67-100%) -Necrotic Tissue Type Adherent Slough -Structure Exposed N/A -Texture (Ashley-wound Skin Appearance) Scarring -Moisture (Ashley-wound Skin Appearance) No Abnormality -Color (Ashley-wound Skin Appearance) Erythema -Temperature (Ashley-wound Skin No Abnormality Appearance) (Pt Warm) -Tenderness on Palpation (Ashley-wound No Skin Appearance) -Ulcer Cleansing Soap and Water -Foul Odor after Cleansing No -Anesthetic Used 5% Lidocaine Gel WC - Nurse 2 - General Ulcer CM Notes Start: 12/21/22 08:35 Freq: Status: Active Protocol: Activity Type Activity Date Activity User E-sign Co-sign Detail Recorded Client Recorded Date Recorded By Document 12/21/22 09:56 PL [id number] 12/21/22 09:58 PL 12/21/22 09:56 Wound Center Nurse 2 -Time 09:05 -Correct Patient Yes -Correct Side, Site, Position Yes -Correct Procedure Yes -Procedure Performed Yes -Type of Procedure Debridement -Clinical Debridement Subcutaneous -Tissue Removed Subcutaneous -Post Debridement (cm) - Length 1.8 -Post Debridement (cm) - Width 1.2 -Post Debridement (cm) - Depth 0.4 -Total Square (Post) (cm) 2.16 -Area of Debridement (cm) - Length 1.8 -Area of Debridement (cm) - Width 1.2 -Total Square (Area) (cm) 2.16 -Tunneling No -Undermining/Tunneling No -Circular Undermining No -Wound/Ulcer Outcome Not Healed -Ulcer Cleansing Rinsed/ Irrigated with Saline -Foul Odor after Cleansing No -Bioengineered Tissue No -Bleeding Controlled with Pressure -Treatment Response Procedure Tolerated Well -Debridement - Subq, 1st 20sq cm Yes Pain Scale: 0-10 Numeric Is Patient Pain Free? Yes - Nurse 3 - General Ulcer D/C NN Start: 12/21/22 08:35 Freq: Status: Active Protocol: Activity Type Activity Date Activity User E-sign Co-sign Detail Recorded Client Recorded Date Recorded By Document 12/21/22 09:26 DL [id number] 12/21/22 09:29 DL 12/21/22 09:26 Wound Care Center Nurse 3 #1 L Ischial -Ulcer Cleansing Rinsed/ Irrigated with Saline -Foul Odor after Cleansing No -Primary Dressing Applied Mepilex Border, Promogran Dorothy Matter -Mepilex Border 1 -Promogran Dorothy Matter 1 Treatment Response Procedure Tolerated Well Pain Scale: 0-10 Numeric Is Patient Pain Free? 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 Continue to apply moistened dorothy to the wound bed, cover with foam dressing. Change once daily or more often as needed to keep clean and dry. Continue to wash with gentle antibacterial soap and water and pat dry prior to dressing changes. Do not submerge the wound such as with baths, swimming, etc. It will be important for her healing to maintain good glycemic control. In addition, with the location of the wound it will be important to offload pressure to the area. Encouraged get a eggcrate or other foam pad to place on her chair at work and the spot she sits in most often at home to help with offloading. Continue to try to get up and walk every hour, try to change positions every half hour to an hour. No signs/symptoms of infection today. Return to wound care center in 2 weeks.
[2022-12-28 08:30] VITALS: BP 120/88; PULSE 86; RESP 16; BMI 25.8
== END 2022-12-28 23:59 | disposition home or self-care (01) ==
LOC: WC 08:30
PROVIDERS: PCP Internal Medicine; Referring Provider Internal Medicine; Visit Provider Physician Assistant
DX: E10.622 Type 1 diabetes mellitus with other skin ulcer (principal); L97.112 Non-pressure chronic ulcer of right thigh with fat layer exposed; Z79.4 Long term (current) use of insulin; I10 Essential (primary) hypertension; E78.00 Pure hypercholesterolemia, unspecified; Z79.899 Other long term (current) drug therapy; Z87.891 Personal history of nicotine dependence
CPT/HCPCS: 11042; 99213; G0463

== ENCOUNTER 2023-01-11 08:34 | Outpatient (RCR) | payer MEDICAID, SELFPAY ==
[2022-12-29 01:43] VITALS: BP 120/88; PULSE 86; RESP 16; TEMP 36.2; BMI 25.8
--- NOTE | 2023-01-11 07:10 | PCM.WC.PN ---
History of Present Illness Date of Service: 01/11/23 Chief Complaint: L posterior thigh/ischial wound History of Wound: Patient presents for evaluation and management of a left ischial wound. She first noticed it about 3-4 weeks ago, she is not sure what caused it but does not recall a bite or injury to that area. She presented to the ER 2 weeks ago (12/05/22) where abscess was drained and packed and she was prescribed Bactrim and Keflex. She then presented to PCP on 12/10 for f/u and she was referred here for continued care. At home, she has been washing it with Dial soap, patting dry, and covering with silver-cell/gauze. She has not noticed any increased pain, swelling, or drainage. She does have Type 1 diabetes that is well-controlled at this time and HTN. Otherwise, no significant medical history. She denies prior history of wounds or difficulties with healing in the past. Subjective Subjective Patient did present to urgent care on Saturday of this week for concern of infection in the area around the wound. The wound itself looked and felt fine, but she had a few pimple-like pustules develop on her thigh/buttock, UC diagnosed with MRSA and prescribed doxycycline. Otherwise, she feels the wound looks great, there is no drainage. Objective Data Objective Data Vital Signs: Vital Signs Temp Pulse Resp BP 97.1 F L 86 16 120/88 H 12/29/22 01:43 12/29/22 01:43 12/29/22 01:43 12/29/22 01:43 Weight: 145 lb 10.724 oz Body Mass Index (BMI) 25.8 Charges/Coding Visit Charges Office Visits / Consults: 71952 OV L3 Est Physical Exam Const alert, oriented x3, no apparent distress, average body habitus, healthy appearing and well nourished General Appearance: cooperative and comfortable HEENT normocephalic, head/scalp atraumatic, hearing grossly normal bilaterally, external ears normal and external nose normal Eyes General Eye: normal appearance of both eyes Neck full ROM General: normal visual inspection Resp normal respiratory effort, normal air movement, no retractions and no use of accessory muscles Effort and Inspection: able to speak in complete sentences Skin Wounds: wounds noted Wound Narrative: L ischial wound epithelialized. No fluctuance, induration, erythema and no appreciable drainage, no drainage able to be expressed. Do see the area of concern for infection, appears as if it may have been a folliculitis. No signs/symptoms of active infection today; no redness, swelling, tenderness. 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 Will have patient apply hydrogel and cover with foam dressing for another week to protect the newly healed skin. Continue to wash the area with a gentle antibacterial soap, this may help with the resolving folliculitis. Finish the course of antibiotics as prescribed. Patient is discharged from [facility] today, return as needed.
[2023-01-11 08:45] VITALS: BP 133/83; PULSE 80; RESP 16; TEMP 36.1; BMI 25.8
== END 2023-01-28 23:59 | disposition home or self-care (01) ==
LOC: WC 08:34
PROVIDERS: PCP Internal Medicine; Referring Provider Internal Medicine; Visit Provider Physician Assistant
DX: E10.622 Type 1 diabetes mellitus with other skin ulcer (principal); L97.112 Non-pressure chronic ulcer of right thigh with fat layer exposed; Z79.4 Long term (current) use of insulin; B95.62 Methicillin resistant Staphylococcus aureus infection as the cause of diseases classified elsewhere; I10 Essential (primary) hypertension
CPT/HCPCS: 99213; G0463

== ENCOUNTER 2023-01-19 15:28 | Emergency (ER) | payer MEDICAID, SELFPAY ==
[2023-01-19 15:30] VITALS: BP 110/67; PULSE 80; RESP 18; TEMP 36.5; O2SAT 99; BMI 25.3
--- NOTE | 2023-01-19 15:39 | RAD_ITS ---
STUDY: XR Foot Min 3 Views CLINICAL: Female, 52 years old. injury TECHNIQUE: XR Foot Min 3 ViewsLEFT COMPARISON: None. FINDINGS: There is a plantar calcaneal spur.There is an enthesophyte involving the posterior superior calcaneus at the site of insertion of the Achilles tendon. Normal visualized subtalar, talonavicular, calcaneocuboid, tarsal and tarsometatarsal articulations. Normal metatarsi. Normal metatarsophalangeal joint of the great toe. Normal tibial and fibular sesamoid bones. Normal interphalangeal joint of the great toe. Normal phalanges of the great toe. Normal second through fifth metatarsophalangeal joints. Normal interphalangeal joints and phalanges of the lesser toes. There is non-specific soft tissue swelling of the foot. RAD/Foot min 3 Views IMPRESSION: There is non-specific soft tissue swelling of the foot. Electronically Signed: Erasmo Oropeza MD at 16:18 EDT ,
--- NOTE | 2023-01-19 15:39 | ED.VIS.LOWEX ---
HPI History of Present Illness HPI Narrative: 52-year-old female history of diabetes and hypertension was walking through her yard on Saturday morning stepped in a hole injuring her left ankle and left foot. Pain has not improved. So she went to get evaluated today. Denies other injuries. Chief Complaint: Lower Extremity Injury Informant: patient Occured/Mechanism Mechanism/Context: Yes injury and Yes blunt trauma Onset/Context/Timing Onset: Days Context: Sudden Onset Timing: Continuous Quality of Pain: Dull and Aching Current Severity: Mild Maximum Severity: Mild Associated Symptoms Associated Symptoms: Negative for Parasthesia, Weakness or Loss of Funtion Narrative Narrative: 52-year-old female stepped in a hole in her yard on Saturday morning having left lateral ankle and foot pain. No prior history of surgery. Prior similar symptoms: No Recent Illness/Hospitalization: No PFSH PFSH Medical History Colon cancer screening History of drug abuse in remission History of hypercholesterolemia History of hypertension History of tobacco abuse History of type 1 diabetes mellitus Hypertension Thyroid nodule Unspecified open wound, left thigh, initial encounter Home Medications levonorgestrel 20.4 mcg/24 hrs (8 yrs) 52 mg intrauterine device (Liletta) 1 device intrauterine ONCE 05/15/21 [History Last Taken Unknown] atorvastatin 20 mg tablet 20 mg PO DAILY CHOLESTEROL #90 tabs 09/25/21 [Rx Last Taken Unknown] dulaglutide 0.75 mg/0.5 mL subcutaneous pen injector (Trulicity) 0.75 mg subcut QWEEK 12/05/22 [History Last Taken Unknown] lisinopril 20 mg tablet 20 mg PO DAILY 12/05/22 [History Last Taken Unknown] sulfamethoxazole 800 mg-trimethoprim 160 mg tablet 1 tab PO BID #14 TABLETS 12/05/22 [Rx Last Taken Unknown] pantoprazole 40 mg tablet,delayed release 40 mg PO DAILY GERD #90 tabs 12/26/22 [Rx Last Taken Unknown] Allergy/AdvReac Type Severity Reaction Status Date / Time No Known Allergies Allergy Verified 01/19/23 15:30 Family History Other Adopted Social History adopted: Yes Smoking Status: Former smoker quit date: 07/01/19 pack-years: 35 alcohol intake: former substance use type: former substance user what type of physical activity do you participate in: none ROS ROS ED ROS Narrative Denies recent illness. Review of Systems ROS Unobtainable: Denies due to encephalopathy Constitutional Constitutional ED: Denies chills or fever(s) Eyes Eyes: Denies blurry vision ENT ENT ED: Denies ear pain Cardiovascular Cardiovascular: Denies chest pain Respiratory/Chest Respiratory/Chest: Denies cough Gastrointestinal Gastrointestinal: Denies abdominal pain Genitourinary Genitourinary ED: Denies dysuria Musculoskeletal Musculoskeletal: Denies arthralgias Integumentary Denies abscess Neurologic Neurologic: Denies headache(s) Psychiatric Psychiatric: Denies anxiety Endocrine Endocrinology: Denies polydipsia Hematologic/Lymphatic Hematologic/Lymphatic: Denies easy bleeding Allergic/Immunologic Allergic/Immunologic ED: Denies mouth swelling EXAM Physical Exam Narrative Exam Narrative: 52-year-old female no acute distress. Vital signs stable afebrile. HEENT exam unremarkable. Atraumatic. Neck nontender. Spine and back nontender. Lungs clear equal symmetrical bilaterally. Heart regular rhythm. Chest wall nontender. Abdomen soft nontender. Pelvic girdle intact. Both upper extremities are nontender. Normal stave planer tender strength. Normal range of motion. Right lower extremity nontender. Normal range of motion. Left hip, thigh, knee, proximal lower leg unremarkable. Left lateral malleolus and ankle mildly tender and swollen. Foot no gross deformity. DP pulse intact. Normal touch sensation. Able to wiggle her toes. Normal dorsi plantarflexion. Achilles tendon intact. Skin intact. Const Vital Signs: 01/19/23 15:30 Temperature 97.7 F L Temperature Source Temporal Pulse Rate 80 Respiratory Rate 18 Blood Pressure 110/67 Blood Pressure Mean 81 Pulse Ox 99 Oxygen Delivery Method Room Air Positive well nourished and well developed; Negative for obese, cachectic, contractures or unkempt General Appearance ED: well developed and NAD; Negative for unkempt, cachectic or contractures Nutritional Appearance: Negative for cachectic or obese HEENT Reports moist mucous membranes normocephalic and atraumatic; Negative for trauma or tenderness Eyes General Eye ED: Negative for other Neck full ROM and supple Thyroid: Negative for tender Lymph Lymphatic: Negative for other Chest Wall inspection of chest normal and palpation of chest normal Chest: Negative for other Resp normal respiratory effort, no retractions and clear to auscultation bilaterally Effort and Inspection: Negative for pain with movement Auscultation: Negative for rales, rhonchi or wheezes Cardio regular rate, regular rhythm, S1 normal heart sound, S2 normal heart sound and no murmurs GI non-tender, non-distended and no masses Inspection: Negative for abdominal distention Auscultation: normoactive bowel sounds Palpation: soft; Negative for tender or guarding Back/Spine no CVA tenderness General Back: Negative for CVA tenderness Cervical Spine: Negative for cervical spine tenderness Thoracic Spine / Upper Back: Negative for thoracic spinal tenderness Lumbar Spine / Lower Back: Negative for lumbar spinal tenderness Extremity full ROM; Negative for normal to inspection Extremity Narrative: Mild tenderness and swelling left lateral malleolus. No gross bony deformity. Medial malleolus nontender nonswollen filly Achilles tendon intact. Dorsi plantarflexion intact. Normal DP pulse. Able to wiggle her toes. No gross bony deformity of her foot or significant tenderness to her foot. General Extremety ED: Negative for cyanosis or edema General Extremity: Negative for cyanosis or edema Neuro oriented x3, CN's II-XII intact bilaterally, moves all extremities and no sensory deficits noted Sensorium / Orientation: alert, oriented to person, oriented to place and oriented to time; Negative for orientation impaired, confused, lethargic or stuporous Motor Exam: strength 5/5 throughout Psych mental status grossly normal Appearance: Negative for unkempt Speech: No other Mood & Affect: Negative for anxious Skin no wounds Lesions: no lesions Rashes: no rashes Trauma: Negative for abrasion, laceration or puncture MDM MDM MDM Narrative Medical decision making narrative: 52-year-old injured her left foot and ankle after stepping in a hole on Saturday. X-ray left foot and ankle but no pain. Ankle sprain and foot contusion versus fracture. X-rays were negative. Patient be treated for an ankle and foot sprain. Follow-up if not improving. History & Record Review Discussion w/independent historian: Patient Radiography Diagnostic Testing: Left foot x-ray, 3 views, interpreted by myself shows no acute abnormality. No fracture or dislocation. Left ankle x-ray, 3 views, interpreted by myself shows no acute abnormality. I did go over the x-rays with the patient. Discharge Plan Triage Chief Complaint: Lower Extremity Injury ED Provider: Jere Hess Dx/Rx/DC Orders Clinical Impression: Ankle sprain, Foot sprain Instructions: ED Foot Sprain, ED Ankle Sprain (Adult) Prescriptions: No Action Liletta 20.1 mcg/24 hrs (6 yrs) 52 mg intrauterine device 1 device intrauterine ONCE Rx Instructions: as a single dose atorvastatin 20 mg tablet 20 mg PO DAILY Qty: 90 1RF lisinopril 20 mg tablet 20 mg PO DAILY Trulicity 0.75 mg/0.5 mL pen injector 0.75 mg SUBCUT QWEEK sulfamethoxazole-trimethoprim [sulfamethoxazole-trimethoprim] 800-160 mg tablet 1 tab PO BID Qty: 14 0RF pantoprazole 40 mg tablet,delayed release (DR/EC) 40 mg PO DAILY Qty: 90 1RF Primary Care Provider: Cleveland Qiu Referrals: Cleveland Qiu MD [Primary Care Provider] - 1 Week if not improving Activity Restrictions/Additional Instructions: Ice and elevate. Motrin and Tylenol for pain and swelling. Follow-up with your doctor if not improving in 1 to 2 weeks. Your x-rays today were unremarkable. Disposition Disposition: Home, Self Care
--- NOTE | 2023-01-19 15:50 | RAD_ITS ---
STUDY: XR Ankle Min 3 Views REASON FOR EXAM: Female, 52 years old. ANKLE PAIN TECHNIQUE: XR Ankle Min 3 Views LEFT COMPARISON: None. FINDINGS: Normal visualized distal tibia and fibula. Normal medial and lateral malleoli. Normal tibiotalar articulation and ankle mortise. The visualized subtalar, talonavicular, calcaneocuboid and tarsal articulations are normal. There is a plantar calcaneal spur. There is soft tissue swelling around the ankle. There is an enthesophyte involving the posterior superior calcaneus at the site of insertion of the Achilles tendon. RAD/Ankle min 3 Views IMPRESSION: There is soft tissue swelling. Electronically Signed: Erasmo Oropeza MD at 16:17 EDT ,
== END 2023-01-19 16:12 | disposition home or self-care (01) ==
LOC: ED 15:57
PROVIDERS: Emergency Provider Emergency Medicine; PCP Internal Medicine; Visit Provider Emergency Medicine
DX: S93.402A Sprain of unspecified ligament of left ankle, initial encounter (principal); E10.9 Type 1 diabetes mellitus without complications; W17.2XXA Fall into hole, initial encounter; I10 Essential (primary) hypertension; E78.00 Pure hypercholesterolemia, unspecified; Z79.85 Long-term (current) use of injectable non-insulin antidiabetic drugs; Z79.899 Other long term (current) drug therapy; Z87.891 Personal history of nicotine dependence
CPT/HCPCS: 73610; 73630; 99282